=== PATIENT | male | born 1945 | race Caucasian/White ===

== ENCOUNTER 2021-12-27 10:21 | Outpatient (REF) | payer MEDICARE, OTHER, SELFPAY ==
[2021-12-29 16:11] LABS: Free Urinary Kappa Excret/Day 83.04 mg/d; Free Urinary Lambda Excr/Day 8.86 mg/d; Free Urine Kappa Light Chains 41.52 mg/L (0.00-32.90); Free Urine LAmbda Light Chains 4.43 mg/L (0.00-3.79); Hours Collected 24 hr; Total Protein 188 mg/d (<=150); Total Volume 2000 mL
== END 2021-12-27 10:22 | disposition home or self-care (01) ==
LOC: NPINS 10:21
PROVIDERS: PCP Family Medicine; Visit Provider Family Medicine
DX: D47.2 Monoclonal gammopathy (principal)
CPT/HCPCS: 83520; 84156; 86335

== ENCOUNTER 2022-05-23 08:14 | Outpatient (CLI) | payer MEDICARE, OTHER, SELFPAY ==
--- OUTSIDE RECORDS SUMMARY | 2022-05-23 09:05 | XMS_ITS | Clinical Summary ---
:1945 Author Organization [facility] [place] [address] Care Team Providers Name Role Phone Prashant Valdez MD Primary Care Provider Allergies Active Allergy Reactions Severity Noted Date Comments Cephalosporins Hives High 06/03/2007 Medications Medication Sig Dispensed Refills Start Date End Date Status XALATAN 0.005 % EYE Place 1 Drop into 0 06/03/2007 Active DROPS right eye at bedtime. albuterol HFA Inhale 2 Puffs by 1 Inhaler 2 06/02/2015 Active (PRO-AIR,VENTOLIN,PRO mouth 4 times daily VENTIL) 90 if needed. mcg/actuation inhalerIndications: Counseling for travel ACCU-CHEK MIGUEL PLUS TEST D UTD 0 11/28/2016 Active TEST STRP strip dutasteride 0.5 mg Take 0.5 mg by 11 07/09/2018 Active capsule mouth once daily. b complex vitamins Take 1 capsule by 0 07/15/2018 Active (VITAMIN B COMPLEX) mouth once daily. capsule Glucosamine-Chondroit Take 1 Tablet by 0 05/09/2021 Active in 250-200 mg tablet mouth once daily. timolol hemihydrate Place 1 Drop into 0 Active (BETIMOL) 0.25 % right eye once ophthalmic solution daily. magnesium oxide Take 1 Tablet (400 90 Tablet 3 08/09/2021 Active (Mag-Ox) 400 mg mg) by mouth once tabletIndications: daily. Heart failure with preserved ejection fraction, unspecified HF chronicity (HC), Hypomagnesemia simvastatin (ZOCOR) Take 10 mg by mouth 0 Active 10 mg tablet at bedtime. calcium Take 500 mg by 0 Activ e carbonate/vitamin D3 mouth once daily. (CALCIUM 500 + D ORAL) nitroglycerin Place 1 Tablet (0.4 30 Tablet 1 08/10/2021 Active (NITROSTAT) 0.4 mg mg) under the sublingual tongue every 5 tabletIndications: minutes if needed Coronary artery for Chest Pain. disease, unspecified vessel or lesion type, unspecified whether angina present, unspecified whether cahto or transplanted heart ferrous sulfate, 65 Take 1 Tablet (325 0 08/25/2021 Active mg elemental, tablet mg) by mouth once daily with a meal. cholecalciferol Take 1 Capsule 0 08/25/2021 Active (VITAMIN D3) 1,000 (1,000 units) by unit capsule mouth once daily. glipiZIDE (GLUCOTROL) Take 5 mg by mouth 0 Active 5 mg tablet 2 times daily before meals. WalkerIndications: Walker with front 1 Each 0 09/16/2021 Active S/P CABG x 4 wheels for home use. acetaminophen Take 2 Tablets 0 09/17/2021 Active (TYLENOL EXTRA (1,000 mg) by mouth STRGTH) 500 mg tablet every 6 hours if needed. Max acetaminophen dose: 4000mg in 24 hrs. metFORMIN (GLUCOPHAGE Take 2 Tablets 0 09/17/2021 Active XR) 500 mg (1,000 mg) by mouth Extended-Release 2 times daily with tabletIndications: meals. Type 2 diabetes mellitus with hyperglycemia, without long-term current use of insulin (HC) carvediloL (COREG) Take 1 Tablet (6.25 60 Tablet 0 10/06/2021 Active 6.25 mg mg) by mouth 2 tabletIndications: times daily with S/P CABG x 4, HTN meals. (hypertension) spironolactone Take 1 Tablet (25 90 Tablet 1 11/01/2021 Active (ALDACTONE) 25 mg mg) by mouth every tabletIndications: morning. Heart failure with preserved ejection fraction, unspecified HF chronicity (HC) Lantus Solostar U-100 Inject 24 units 3 04/18/2022 Active Insulin 100 unit/mL subcutaneous before (3 mL) bedtime. penIndications: Type 2 diabetes mellitus with hyperglycemia, without long-term current use of insulin (HC) warfarin (COUMADIN) 5 Take 1 Tablet (5 0 04/18/2022 Active mg tablet mg) by mouth once daily. warfarin (COUMADIN) Take 1 tablet (2.5 15 Tablet 0 04/18/2022 Active 2.5 mg mg) by mouth on tabletIndications: Fridays along with Permanent atrial 5 mg tablet fibrillation (HC) aspirin (ECOTRIN) 81 Continue until 0 04/20/2022 Active mg enteric coated August 2022 tabletIndications: Permanent atrial fibrillation (HC) torsemide (DEMADEX) Decrease dosage to 90 Tablet 1 04/20/2022 Active 20 mg 10 mg ( 1/2 tablet) tabletIndications: for 1 week, then Heart failure with stop. 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 08/25/2021 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 Abnormal nuclear stress test 08/10/2021 Dyslipidemia 08/10/2021 Type 2 diabetes mellitus with hyperglycemia, without l harsh-term current use 05/09/2021 of insulin Abdominal aortic aneurysm (AAA) without rupture 2020 Permanent atrial fibrillation 01/24/2019 Elevated PSA 10/13/2015 Erectile dysfunction 10/13/2015 HTN (hypertension) 06/02/2015 Gastric ulcer 06/23/2010 Overview: EGD 06/2010 ulcers Encounters Date Type Specialty Care Team Description 04/26/2022 Telephone Ramesh Mantilla Results (La bs) MD Jeffrey 04/20/2022 Hospital Encounter Ramesh Mantilla id heart disease (HC); MD Jeffrey Heart failure w ith preserved ejection fraction, unspecified HF chronicity (HC) 04/20/2022 Office Visit Ramesh Mantilla CV General Cardiology MD Jeffrey Est (F/U; No co ncerns) 04/20/2022 Telephone Ramesh Mantilla Medication Management MD Jeffrey (Eluquis) 04/20/2022 Travel from Last 3 Months Immunizations Name Administration Dates Next Due Influenza, High-dose Inactivated 04/09/2018 Influenza, IIV3 (Age >=3 years) 06/03/2007 Pneumococcal Poly,23-Valent (Pneumovax) 04/09/2018, 10/24/19 09 Pneumococcal conj 13-Valent (Prevnar 13) 10/07/2014 Tdap 06/02/2008 Typhoid (injectable) 06/02/2015 Zoster (Zostavax-ZVL, live) 12/30/2010 Family History Medical History Relation Name Comments Diabetes Father Diabetes Mother Relation Name Status Comments Father Mother Social History Tobacco Use Types Packs/Day Years Used Date Former Smoker Cigarettes 1 15 Quit: 07/02/18 76 Smokeless Tobacco: Never Used Tobacco Cessation: Counseling Given: Yes Alcohol Use Standard Drinks/Week Comments Yes 0 (1 standard drink = 0.6 oz pure alcoho l) rare Sex Assigned at Date Recorded Not on file Obstetrics History Last Filed Vital Signs Vital Sign Reading Time Taken Comments Blood Pressure 112/68 04/20/2022 10:52 AM CDT Pulse 72 04/20/2022 10:52 AM CDT Temperature 36.9 ??C (98.4 ??F) 09/17/2021 7:47 AM CDT Respiratory Rate 19 09/23/2021 1:02 PM CDT Oxygen Saturation 96% 04/20/2022 10:52 AM CDT Inhaled Oxygen Concentration - - Weight 93.9 kg (207 lb) 04/20/2022 10:52 AM CDT Height 170.2 cm (5' 7.01) 04/20/2022 10:52 AM CDT Body Mass Index 32.41 04/20/2022 10:52 AM CDT Plan of Treatment Upcoming Encounters Date Type Specialty Care Team Description 05/29/2022 Appointment 05/30/2022 Office Visit Aaron Wells MD [id number] [place] [address] (Wo rk) 08/15/2022 Cardiac Device Check Health Maintenance Due Date Last Done Comments Depression screening for age 12+ 1956 Hepatitis C screening for age 110[birth year]/22/1963 18-79 Medicare Wellness for age 65+ 2009 Zoster (shingles) series for age 0802/24/2011 12/30/2010 50+ (2 of 3) Tetanus booster 06/02/2018 06/02/2008 Influenza for age 65+ 03/02/2022 04/09/2018, 06/03/2007 BMI (ht and wt on same day) for 04/20/2023 04/20/2022, 05/2 , age 18+ 10/31/2021, Additional history exists Tdap Completed 06/02/2008 Pneumococcal series for age 65+ Completed 04/09/2018, 0 01/2015, 10/23/2008 COVID-19 vaccine series Completed 03/14/2022, 12/16/2021, 03/22/2021, Additional history exists Goals Goal Patient Goal Associated Recent Patient-Stated? 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 fraction, unspecified HF chronicity (HC) ELP AND FREE LIGHT Today 04/20/2022 12:35 Amyloid heart Resu lts for this CHAINS W REFLEX, BLOOD PM CDT disease ( HC) procedure are in Heart failure with the resul ts preserved ejection section. fraction, unspecified HF chronicity (HC) from Last 3 Months Results IMMUNOFIXATION ELP, URINE (04/20/2022 1:07 PM CDT) Component Value Ref Test Analysis Performed At [facility] gist Range Method Time Signature PROTEIN <7 <=14 04/24/2022 [facility] mg/dL 1:03 PM CDT LABORATORY-CE URINE NTRAL LABORATORY IFIX Immunofixation on urine show s no monoclonal protein detected and no free light chains detected. 04/24/2022 [facility] 1:03 PM CDT LABORATORY-CE Interpreted and electronically signed by: NTRAL MD KEREN Shoemaker Jr BORATORY Specimen Anatomical Collection Method Collection Time Receive d Time (Source) Location / / Volume Laterality Urine URINE SPECIMEN / Non-Blood / 04/20/2022 1:07 PM 04/20 1:08 Unknown Unknown CDT PM CDT Ramesh Mantilla MD URINE Performing Organization Address City/State/ZIP Code Phon e Number [facility] [address] [place] [address] LABORATORY-CENTRAL 2000 LABORATORY (ABNORMAL) ELP AND FREE LIGHT CHAINS W REFLEX, BLOOD (04/20/2022 12:35 PM CDT) Component Value Ref Test Analysis Performed At [facility] gist Range Method Time Signature PROTEIN,TOTAL 7.2 6.0 - 04/21/2022 [facility] 8.0 g/dL 4:13 PM CDT LABORATORY-CE NTRAL LABORATORY ELP,ALBUMIN 3.76 3.31 - 04/21/2022 [facility] 5.31 4:13 PM CDT LABORATORY-CE g/dL NTRAL LABORATORY ELP,ALPHA 1 0.32 0.19 - 04/21/2022 [facility] 0.42 4:13 PM CDT LABORATORY-CE g/dL NTRAL LABORATORY ELP,ALPHA 2 1.12 (H) 0.44 - 04/21/2022 [facility] 1.03 4:13 PM CDT LABORATORY-CE g/dL [facility] LABORATORY ELP,GAMMA 0.85 0.59 - 04/21/2022 [facility] 1.46 4:13 PM CDT LABORATORY-CE g/dL [facility] LABORATORY ELP,BETA 1.11 (H) 0.52 - 04/21/2022 [facility] 1.05 4:13 PM CDT LABORATORY-CE g/dL [facility] LABORATORY KAPPA FREE 4.04 (H) 0.33 - 04/21/2022 [facility] LIGHT CHAIN, 1.94 4:13 PM CDT LABORATORY-CE S mg/dL [facility] LABORATORY LAMBDA FREE 2.30 0.57 - 04/21/2022 [facility] LIGHT [place]AIN, 2.63 4:13 PM CDT LABORATORY-CE S mg/dL [facility] LABORATORY KAPPA/LAMBDA 1.76 (H) 0.26 - 04/21/2022 [facility] FLC RATIO 1.65 4:13 PM CDT LABORATORY-CE NTRAL LABORATORY ELP 1. Increased alpha-globulins , probably reactive. No monoclonal protein detected. 04/21/2022 [facility] INTERP,SERUM 4:13 PM CDT LABORATORY-CE 2. Increased Beta-globulins, possible increase of Transferrin, ??C-3 complement, and/or Beta Lipoprotein. ?? N TRAL LABORATORY Interpreted and electronically signed by: Sherri Hartmann MD Specimen Anatomical Collection Method / Collection Time Recei antonio Time (Source) Location / Volume Laterality Blood BLOOD SPECIMEN / Venipuncture / 04/20/2022 12:35 04/20 Unknown Unknown PM CDT 12:38 PM CDT Ramesh Mantilla MD CHEMISTRY Performing Organization Address City/State/ZIP Code Phon e Number [facility] [address] [place] [address] LABORATORY-CENTRAL 2000 LABORATORY from Last 3 Months Insurance Payer Benefit Plan / Subscriber ID Effective Dates Phone Addre ss Type Group MEDICARE PART MEDICARE PART B [id number] 2009-Prese ATTN: CLAIMS B - HB USE HB ONLY nt [address] [place] [address] MEDICARE PART MEDICARE PART A [id number] 2009-Prese ATTN: CLAIMS A - HB USE HB ONLY nt [address] [place] [address] MEDICARE PPS HC MEDICARE PPS [id number] 2009-Prese [address] [place] [address] MEDICA MR MEDICA PRIME [id number] 2014-Presen [address] [address] SOLUTIONS MR PB t [place] , [facility] [address] MEDICA MEDICA PRIME [id number] 2015-Presen [address] [address] [place] [address] Joni Moncada Personal/Famil Self 1945 [address] (Home) [place] [id number] Advance Directives Latest Code Status on File Code Status Date Activated Date Inactivated Comments Full Code 09/05/2021 10:28 AM 09/17/2021 5:41 PM Code Status Discussion: Reviewed Preferences Full Code 08/10/2021 8:55 AM 08/10/2021 5:19 PM Code Status Discussion: Reviewed Preferences Full Code 05/10/2021 3:37 PM 05/11/2021 3:34 PM Code Status Discussion: Reviewed Preferences Care Teams Buffer Automatic Relationship Specialty Start Date End Date Prashant Valdez MD PCP - General Family Practice 08/23/17
[2022-05-23 14:24] LABS: Cholesterol* 151 mg/dL (90-199); HDL Cholesterol* 37 mg/dL (>=40); LDL Cholesterol Calculated 81 mg/dL (<100); Triglycerides* 167 mg/dL (40-149)
== END 2022-05-23 08:15 | disposition home or self-care (01) ==
PROVIDERS: PCP Family Medicine; Visit Provider Family Medicine
DX: E78.5 Hyperlipidemia, unspecified (principal); E13.9 Other specified diabetes mellitus without complications; I10 Essential (primary) hypertension; I48.91 Unspecified atrial fibrillation; Z13.29 Encounter for screening for other suspected endocrine disorder
CPT/HCPCS: 80061; 84439; 84443

== ENCOUNTER 2022-09-22 09:07 | Outpatient (REF) | payer MEDICARE, OTHER, SELFPAY ==
[2022-09-22 10:19] LABS: Basophils Absolute Auto 0.03 K/uL (0.00-0.30); Basophils Percent Auto 0.3 % (0.0-3.0); Eosinophils Absolute Auto 0.38 K/uL (0.00-0.50); Eosinophils Percent Auto 3.8 % (0.0-7.0); Hematocrit 37.8 % (37.0-53.0); Hemoglobin* 11.7 gm/dL (13.5-17.5); Immature Granulocytes Abs Auto 0.01 K/uL (0.00-0.30); Immature Granulocytes Pct Auto 0.1 %; Lymphocytes Percent Auto 13.7 % (20-44); Mean Corpuscular HGB Conc 31 gm/dL (32-36); Mean Corpuscular Hemoglobin 28 pg (26-34); Mean Corpuscular Volume 90 fL (80-100); Monocytes Percent Auto 9.8 % (0.0-11.0); Neutrophils Percent Auto 72.3 % (42.0-72.0); Platelet Count* 348 K/uL (140-440); RDW Coefficient of Variation % 14.9 % (11.5-15.5); Red Blood Count 4.19 m/uL (4.30-5.90); White Blood Count* 9.98 K/uL (4.50-11.00)
[2022-09-22 10:22] LABS: Slide Review Reflex No
[2022-09-22 10:29] LABS: Chloride* 99 mmol/L (96-114)
[2022-09-22 10:30] LABS: Albumin* 4.3 g/dL (3.3-5.0); Potassium* 4.2 mmol/L (3.6-5.1); Sodium* 139 mmol/L (135-149)
[2022-09-22 10:32] LABS: Creatinine* 1.2 mg/dL (0.5-1.5); Estimated Glomerular Filt Rate 62 ml/min
[2022-09-22 10:33] LABS: Alanine Aminotransferase* 27 U/L (4-50); Alkaline Phosphatase* 64 U/L (40-150); Aspartate Amino Transferase* 22 U/L (12-35); Bilirubin Total* 0.5 mg/dL (0.1-1.5); Blood Urea Nitrogen* 24 mg/dL (7-30); Carbon Dioxide* 33 mmol/L (20-32); Glucose* 67 mg/dL (60-115); Total Protein* 8.1 g/dL (6.0-8.3)
[2022-09-22 10:34] LABS: Calcium* 9.5 mg/dL (8.4-10.6)
[2022-09-24 10:35] LABS: Free Urinary Kappa Excret/Day 61.77 mg/d; Free Urinary Lambda Excr/Day 5.41 mg/d; Free Urine Kappa Light Chains 36.88 mg/L (0.00-32.90); Free Urine LAmbda Light Chains 3.23 mg/L (0.00-3.79); Hours Collected 24 hr; Total Protein 129 mg/d (<=150); Total Volume 1675 mL
[2022-09-25 02:00] LABS: Albumin 3.94 g/dL (3.75-5.01); Alpha 1 Globulin 0.37 g/dL (0.19-0.46); Alpha 2 Globulin 1.13 g/dL (0.48-1.05); Immunofixation IFE Done; Immunoglobulin A 516 mg/dL (68-408); Immunoglobulin G 930 mg/dL (768-1632); Immunoglobulin M 25 mg/dL (35-263); Kappa Qnt Free Light Chains 49.06 mg/L (3.30-19.40); Kappa/Lambda Light Chain Ratio 2.02 (0.26-1.65); Total Protein, Serum 7.6 g/dL (6.3-8.2)
== END 2022-09-22 09:08 | disposition home or self-care (01) ==
LOC: NPINS 09:07
PROVIDERS: PCP Family Medicine
DX: D47.2 Monoclonal gammopathy (principal)
CPT/HCPCS: 80053; 82784; 83520; 84155; 84156; 84165; 85025; 86334; 86335

== ENCOUNTER 2022-10-21 11:41 | Outpatient (CLI) | payer MEDICARE, OTHER, SELFPAY ==
[2022-10-21 13:38] LABS: Uric Acid* 7.7 mg/dL (2.2-8.4)
[2022-10-21 13:53] LABS: Erythrocyte SedimentationRate* 86 mm/hr (2-15)
== END 2022-10-21 11:42 | disposition home or self-care (01) ==
PROVIDERS: PCP Family Medicine; Visit Provider Family Medicine
DX: M25.531 Pain in right wrist (principal); M25.431 Effusion, right wrist
CPT/HCPCS: 84550; 85651

== ENCOUNTER 2022-12-29 08:54 | Outpatient (CLI) | payer MEDICARE, OTHER, SELFPAY | END 2022-12-29 08:55 | disposition home or self-care (01) | PROVIDERS: PCP Family Medicine; Visit Provider Family Medicine | DX: E03.9 Hypothyroidism, unspecified (principal); I10 Essential (primary) hypertension; E78.5 Hyperlipidemia, unspecified | CPT/HCPCS: 84443 ==

== ENCOUNTER 2023-01-29 13:42 | Outpatient (REF) | payer MEDICARE, OTHER, SELFPAY ==
[2023-01-29 14:42] LABS: Basophils Percent Auto 0.2 % (0.0-3.0); Eosinophils Percent Auto 0.4 % (0.0-7.0); Hematocrit 34.9 % (37.0-53.0); Lymphocytes Percent Auto 6.2 % (20-44); Mean Corpuscular HGB Conc 32 gm/dL (32-36); Mean Corpuscular Hemoglobin 29 pg (26-34); Mean Corpuscular Volume 91 fL (80-100); Monocytes Percent Auto 4.7 % (0.0-11.0); Neutrophils Percent Auto 86.5 % (42.0-72.0); Platelet Count* 320 K/uL (140-440); RDW Coefficient of Variation % 17.2 % (11.5-15.5); Red Blood Count 3.83 m/uL (4.30-5.90); White Blood Count* 13.14 K/uL (4.50-11.00)
[2023-01-29 14:46] LABS: Slide Review Reflex No
[2023-01-29 15:04] LABS: Albumin* 3.9 g/dL (3.3-5.0); Chloride* 97 mmol/L (96-114); Sodium* 135 mmol/L (135-149)
[2023-01-29 15:05] LABS: Potassium* 4.5 mmol/L (3.6-5.1)
[2023-01-29 15:06] LABS: Iron* 56 ug/dL (49-181)
[2023-01-29 15:07] LABS: Alanine Aminotransferase* 30 U/L (4-50); Alkaline Phosphatase* 48 U/L (40-150); Aspartate Amino Transferase* 20 U/L (12-35); Bilirubin Total* 0.3 mg/dL (0.1-1.5); Blood Urea Nitrogen* 38 mg/dL (7-30); Carbon Dioxide* 30 mmol/L (20-32); Creatinine* 1.2 mg/dL (0.5-1.5); Estimated Glomerular Filt Rate 62 ml/min; Total Protein* 6.7 g/dL (6.0-8.3)
[2023-01-29 15:08] LABS: Calcium* 9.1 mg/dL (8.4-10.6); Glucose* 230 mg/dL (60-115)
[2023-01-29 15:17] LABS: Percent Iron Saturation 18 % (20-50); Total Iron Binding Capacity 317 ug/dL (261-462)
[2023-01-31 22:26] LABS: Immunoglobulin A 338 mg/dL (68-408); Immunoglobulin G 509 mg/dL (768-1632); Immunoglobulin M 23 mg/dL (35-263); Kappa Qnt Free Light Chains 30.25 mg/L (3.30-19.40); Kappa-Lambda Qt FLC W/ Ratio 1.88 (0.26-1.65); Lambda Qnt Free Light Chains 16.12 mg/L (5.71-26.30)
[2023-02-01 20:51] LABS: Albumin 3.51 g/dL (3.75-5.01); Alpha 1 Globulin 0.33 g/dL (0.19-0.46); Alpha 2 Globulin 1.17 g/dL (0.48-1.05); Total Protein, Serum 6.5 g/dL (6.3-8.2)
== END 2023-01-29 13:43 | disposition home or self-care (01) ==
LOC: NPINS 13:42
PROVIDERS: Internal Medicine Hematology & Oncology; PCP Family Medicine
DX: D47.2 Monoclonal gammopathy (principal)
CPT/HCPCS: 80053; 82728; 82784; 83520; 83540; 83550; 84165; 85025

== ENCOUNTER 2023-03-14 11:56 | Outpatient (CLI) | payer MEDICARE, OTHER, SELFPAY | END 2023-03-14 11:57 | disposition home or self-care (01) | LOC: LONREF 11:57 | PROVIDERS: PCP Family Medicine; Visit Provider Family Medicine | DX: E78.5 Hyperlipidemia, unspecified (principal); E13.9 Other specified diabetes mellitus without complications; I10 Essential (primary) hypertension | CPT/HCPCS: 80061 ==

== ENCOUNTER 2023-05-23 15:51 | Outpatient (CLI) | payer MEDICARE, OTHER, SELFPAY | END 2023-05-23 15:52 | disposition home or self-care (01) | LOC: NFLDUCREF 15:54 | PROVIDERS: PCP Family Medicine; Visit Provider Nurse Practitioner Family | DX: M79.671 Pain in right foot (principal) | CPT/HCPCS: 84550 ==

== ENCOUNTER 2023-06-28 12:42 | Outpatient (CLI) | payer MEDICARE, OTHER, SELFPAY | END 2023-06-28 12:43 | disposition home or self-care (01) | PROVIDERS: PCP Family Medicine; Visit Provider Physician Assistant | DX: M79.89 Other specified soft tissue disorders (principal); M06.9 Rheumatoid arthritis, unspecified; M25.512 Pain in left shoulder | CPT/HCPCS: 84484; 85651; 86140 ==

== ENCOUNTER 2023-06-29 07:59 | Outpatient (CLI) | payer MEDICARE, OTHER, SELFPAY ==
--- NOTE | 2023-06-29 08:15 | CRLHL7_ITS ---
For Patients: As a result of the Century Cures Act, medical imaging exams and procedure reports are released immediately into your electronic medical record. You may view this report before your referring provider. If you have questions, please contact your health care provider. Indication: Left shoulder pain Procedure : Informed consent was obtained. The site was marked. Time-out was performed. The skin of the left shoulder was cleansed with ChloraPrep. A sterile drape was placed. 8 cc of 1 percent lidocaine was administered for superficial anesthesia. Subsequently a 22 gauge spinal needle was introduced into the left shoulder joint under intermittent fluoroscopic guidance. Injection of 4 cc nonionic Omnipaque 240 contrast confirmed intra-articular location followed by injection of air. The needle was removed and hemostasis achieved with direct pressure. A dressing was placed. The patient tolerated the procedure well without immediate complication and was immediately sent to CT for imaging. Total fluoroscopy time 49 seconds. Impression: Successful fluoroscopically guided left shoulder arthrogram for CT. Dictated by Medardo Mtz MD @ 06/29/2023 10:13:55 AM (Electronically Signed)
--- NOTE | 2023-06-29 09:00 | CRLHL7_ITS ---
For Patients: As a result of the Century Cures Act, medical imaging exams and procedure reports are released immediately into your electronic medical record. You may view this report before your referring provider. If you have questions, please contact your health care provider. Indication: Left shoulder pain Technique: Routine CT arthrogram performed Please note that all CT scans at this facility use dose modulation, iterative reconstruction, and/or weight-based dosing when appropriate to reduce radiation dose to as low as reasonably achievable. Comparison: X-rays 06/28/2023 Findings: Narrowing and spurring are present at the acromioclavicular joint. Atherosclerotic changes are present. Pacer device noted within the left chest wall. No adenopathy. No fracture. Posterior position of the humeral head in relation to the glenoid. Glenohumeral spurring. Positive contrast adjacent to the posterior-inferior glenoid labrum. Biceps labral anchor appears intact. Hypertrophic changes associated with the anterior greater tuberosity. No Hill-Sachs deformity. Type 2 acromion noted. Mild subacromial spur without downsloping at the lateral aspect. Negative contrast and a small amount of positive contrast extend beyond the margins of the rotator cuff particularly anteriorly. Impression: CT arthrogram findings compatible with small rotator cuff tear involving the subscapularis/anterior supraspinatus tendons. Glenohumeral and acromioclavicular compartment degenerative joint disease. Degenerative tear of the posterior glenoid labrum. Posterior joint capsular laxity. Please note that all CT scans at this facility use dose modulation, iterative reconstruction, and/or weight-based dosing when appropriate to reduce radiation dose to as low as reasonably achievable. Dictated by Medardo Mtz MD @ 06/29/2023 10:30:09 AM (Electronically Signed)
== END 2023-06-29 08:00 | disposition home or self-care (01) ==
PROVIDERS: PCP Family Medicine; Visit Provider Physician Assistant Surgical
DX: M25.512 Pain in left shoulder (principal); R29.898 Other symptoms and signs involving the musculoskeletal system; M75.102 Unspecified rotator cuff tear or rupture of left shoulder, not specified as traumatic; M19.012 Primary osteoarthritis, left shoulder; S43.492A Other sprain of left shoulder joint, initial encounter
CPT/HCPCS: 23350; 73201; 77002; Q9967

== ENCOUNTER 2023-08-02 09:57 | Outpatient (CLI) | payer MEDICARE, OTHER, SELFPAY ==
--- OUTSIDE RECORDS SUMMARY | 2023-08-02 10:04 | XMS_ITS | Clinical Summary ---
Author Name Unknown Organization [facility] Address [address] [place] [address] Care Team Providers Care Manager Latin Name Role Phone Needs Pcp, Assignment Primary Care Provider [phone] Source Comments You are receiving this document as you are listed as the primary care provider,follow-up provider, or the patient has been referred to you for consultation.This is in compliance with the Medicare and[facility] EHR Incentive Program,which states Providers who transition their patient to another setting of careor provider of care or refers their patient to another provider of care shouldprovide summary care record for each transition of care or referral. Formerly [facility] Allergies Active Allergy Reactions Criticality Noted Date Comments Cephalosporins Hives High 02/28/2023 Medications Medication Sig Dispensed Refills Start Date End Date Status metFORMIN XR (GLUCOPHAGE XR) 500 MG 24 hour release tablet Take 2 Tablets (1,000 mg) by mouth two times a day. 0 09/17/2022 Active glipiZIDE (GLUCOTROL) 5 MG tablet Take 1 Tablet (5 mg) by mouth two times a day before meals. 0 Active simvastatin (ZOCOR) 20 MG tablet Take 1 Tablet (20 mg) by mouth daily at bedtime. 0 12/04/2022 Active torsemide (DEMADEX) 20 MG tablet Take 1 Tablet (20 mg) by mouth daily. 0 Active spironolactone (ALDACTONE) 50 MG tablet Take 1 Tablet (50 mg) by mouth two times a day. 0 02/02/2023 Active MAGNESIUM OXIDE 400 (240 Mg) MG tablet Take 1 Tablet (400 mg) by mouth daily. 0 12/14/2022 Active B-D ULTRAFINE III SHORT PEN 31G X 8 MM needle Inject subcutaneously daily. 0 01/19/2023 Active aspirin 81 MG chewable tablet Chew and swallow 1 Tablet (81 mg) by mouth daily. 0 Active carvedilol (COREG) 6.25 MG tablet Carvedilol Oral BID active 0 Active dutasteride (AVODART) 0.5 MG capsule Dutasteride Oral active 0 Active acetaminophen (TYLENOL) 500 MG tablet every 6 hours as needed. 0 Active B Complex Vitamins (VITAMIN B COMPLEX OR) Take 2,000 Units by mouth daily. 0 Active timolol (BETIMOL) 0.5 % eye drop solution Timolol Ophthalmic Drops 0.5 % active 0 Active GLUCOSAMINE CHONDROITIN COMPLX OR Glucosamine-Chondroi tin Oral 250 mg-200 mg active 0 Active Ferrous Sulfate Dried (FERROUS SULFATE CR OR) Ferrous Sulfate Oral active 0 Active Cholecalciferol 50 MCG (2000 UT) TBDP Cholecalciferol Oral active 0 Active Albuterol Sulfate, sensor, 108 (90 Base) MCG/ACT AEPB Albuterol HFA Inhaler 90 mcg/actuation active 0 Active folic acid 1 MG tablet Take 1 Tablet (1 mg) by mouth daily. 90 Tablet 3 02/28/2023 4 Active LANTUS SOLOSTAR 100 UNIT/ML pen Taking 32 units nightly 0 04/10/2023 Active methotrexate 2.5 MG tablet Take 6 Tablets (15 mg) by mouth once every week. 150 Tablet 0 07/24/2023 4 Active methotrexate 2.5 MG tablet Take 6 Tablets (15 mg) by mouth once every week. 78 Tablet 0 04/10/2023 4 Active Problems Problem Noted Date Diagnosed Date Diabetes mellitus 04/10/2023 HTN (hypertension) 04/10/2023 Hyperlipidemia 04/10/2023 Atrial fibrillation 04/10/2023 Gastric ulcer 04/10/2023 Nephrolithiasis 04/10/2023 BPH (benign prostatic hyperplasia) 04/10/2023 Left ventricular hypertrophy 04/10/2023 Hearing loss 04/10/2023 Diverticulosis 04/10/2023 COPD (chronic obstructive pulmonary disease) 04/2023 Macular pigment epithelial tear 04/10/2023 Rheumatoid arthritis 02/28/2023 Monoclonal gammopathy of unknown significance (M ISIS) 02/28/2023 Iron deficiency anemia 02/28/2023 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 Overview: WHEELER to LAD, Saphenous vein graft sequential to OM and D1, Saphenous vein graft to PDA CAD in [place] artery 08/25/2021 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 Dyslipidemia 08/10/2021 Abnormal nuclear stress test 08/10/2021 Abdominal aortic aneurysm (AAA) without rupture 05/09/2021 Elevated PSA 10/13/2015 Erectile dysfunction 10/13/2015 Encounters Date Type Department Care Team Description 07/26/2023 Telephone [facility] [address] [place] [address] Idris Torrez, DO RESULTS, TEST 07/24/2023 3:40 PM CASSEROLE PREPARER Lab Visit [facility] [address] [place] [address] 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 use; Leukocytosis, unspecified type (HRC) 07/24/2023 2:45 PM CASSEROLE PREPARER Office Visit [facility] [address] [place] [address] DesiletIdris, DO 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); 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 use; Leukocytosis, unspecified type (HRC) from Last 3 Months Immunizations Name Administration Dates Next Due Flu Vac (3+ yrs) 03/20/2014, 2,02/23/2011, 010,06/02/2008,06/03/2007,05/16/2005, Flu Vac Preserv Free (3+yrs) 04/23/2013,03/24/20 09 [id number] 06/30/2009 HepA Adult (19+ yrs) 12/07/1999 HepB Adult (Engerix-B, 20+ y rs, 3 dose series) 01/05/2000,12/07/1999 IPV (Polio) 12/07/1999 Influenza IIV3 (Trivalent) F luzone Highdose, 65+ Yrs (09617) 04/16/2019,04/09/2018,03/01/2017, 016,03/18/2015 Influenza IIV4 (Quadrivalent ) 0.5mL (89778) 04/19/2021 Influenza IIV4 (Quadrivalent ) Fluad, 65+ Yrs 03/14/2022 Influenza IIV4 (Quadrivalent ) Fluzone, 65+ Yrs 04/03/2023,04/13/2021,03/18/2020 Moderna 12+ 04/03/2023 PCV13 (Prevnar) 10/07/2014 PPSV23 (Pneumovax) 04/09/2018,10/23/2008 Pfizer Bivalent 12+ 03/14/2022 Pfizer Monovalent 12+ Purple Top 022,03/22/2021,09/07/2020, 021 RSV Arexvy 04/30/2023 Tdap 01/04/2018,06/02/2008,12/18/2005 Typhoid (Typhim Vi, IM) 06/02/2015 Zoster (Zostavax) 12/21/2011,12/30/2010 Zoster RZV (Shingrix) 02/27/2019,12/16/2018 Social History Tobacco Use Types Packs/Day Years Used Date Smoking Tobacco: Former Cigarettes 12 Smokeless Tobacco: Never Tobacco Cessation:Counseling Given: Not Answered Alcohol Use Standard Drinks/Week Comments Yes 1 (1 standard drink = 0.6 oz pure alcohol) Drinks very infrequently, likely less than once per month. Sex and Gender Information Value Date Recorded Sex Assigned at Not on file Gender Identity Not on file Sexual Orientation Not on file Last Filed Vital Signs Vital Sign Reading Time Taken Comments Blood Pressure 142/68 07/24/2023 2:32 PM CASSEROLE PREPARER Pulse 85 07/24/2023 2:32 PM CASSEROLE PREPARER Temperature - - Respiratory Rate - - Oxygen Saturation - - Inhaled Oxygen Concentration - - Weight 92.3 kg (203 lb 8 oz) 07/24/2023 2:32 PM CASSEROLE PREPARER Height 170.2 cm (5' 7) 04/10/2023 10:06 AM CDT Body Mass Index 31.87 04/10/2023 10:06 AM CDT Plan of Treatment Upcoming Encounters Date Type Department Care Team Description 11/06/2023 12:00 PM CDT Appointment [facility] [address] [place], [place] [id number] Desilet, Idris W, DO [address] [place] [address] 01/17/2024 10:45 AM CDT Appointment [facility] [address] [place], [place] [phone] DeslouisetIdris DO [address] [place] [address] Health Maintenance Due Date Last Done Comments Diabetes: Eye Exam 1944 Diabetes: Foot Exam 1944 Diabetes: HGBA1C 1944 Diabetes: Lipid Panel 1944 Diabetes: Urine Microalbumin 1945 Medicare Annual Wellness Visit 1945 HepA (2 of 2 - Risk 2-dose series) 06/07/2000 12/07/1999 HepB (3) 06/07/2000 01/05/2000, 12/07/1999 Diabetes: Creatinine 07/24/2024 07/24/2023, 04/10/2023, 03/06/2023, Additional history exists DTaP/Tdap/Td (4 - Tdap) 01/05/2028 01/05/20 18, 06/02/2008, 12/18/2005 IPV (Polio) Aged Out 12/07/1999 No longer eligi ble based on patient's age to complete this topic Pneumococcal 65+ Yrs Completed 04/09/2018, 10/07/2014, 10/23/2008 Zoster/Shingles Completed 02/27/2019, 11/30, 12/21/2011, Additional history exists Hep C Screening (Preventive Services) Completed 02/28/2023 COVID-19 Vaccine Completed 04/03/2023, , 12/16/2021, Additional history exists Influenza Completed 04/03/2023, 03/02, 04/19/2021, Additional history exists Hib Aged Out No longer eligi ble based on patient's age to complete this topic MCV4 Aged Out No longer eligi ble based on patient's age to complete this topic Procedures Procedure Name Priority Date/Time Associated Diagnosis Comments COMPLETE BLOOD COUNT-W/DIFF Routine 07/24/2023 3:34 PM CASSEROLE PREPARER 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 use VITAMIN D 25-HYDROXY, TOTAL Routine 07/24/2023 3:34 PM CASSEROLE PREPARER 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 use CALCIUM Routine 07/24/2023 3:34 PM CASSEROLE PREPARER Leukocytosis, unspecified type (HRC) FLOW CYTOMETRY Routine 07/24/2023 3:34 PM CASSEROLE PREPARER Leukocytosis, unspecified type (HRC) FREE LIGHT CHAINS, SERUM Routine 07/24/2023 3:34 PM CASSEROLE PREPARER Leukocytosis, unspecified type (HRC) PROTEIN ELP (SERUM) Routine 07/24/2023 3 :34 PM CASSEROLE PREPARER Leukocytosis, unspecified type (HRC) IMMUNOFIXATION, SERUM (IMMUNO ELP) Routine 07/24/2023 3:34 PM CASSEROLE PREPARER Leukocytosis, unspecified type (HRC) CBC AND DIFFERENTIAL PANEL Routine 07/24/2023 3:34 PM CASSEROLE PREPARER 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 use CREATININE / GFR Routine 07/24/2023 3:34 PM CASSEROLE PREPARER 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 use ALT (SGPT) Routine 07/24/2023 3:34 PM CASSEROLE PREPARER 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 use ALBUMIN Routine 07/24/2023 3:34 PM CASSEROLE PREPARER 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 use CBC AND SLIDES FOR FLOW SPEC Routine 07/24/2023 3:25 PM CASSEROLE PREPARER Leukocytosis, unspecified type (HRC) from Last 3 Months Results * Flow Cytometry (07/24/2023 3:34 PM CASSEROLE PREPARER) Case Report Flow Cytometry ?Case: [id number] ? Authorizing Provider: ??Idris Torrez, DO ?Collected: ? 07/24/2023 1534 ? Ordering Location: ? [facility] ?Received: ?07/24/2023 1534 ? Pathologist: ? Gisele Thakkar MD ? Specimen: ?Blood, Venous ? 4 2:13 PM CASSEROLE PREPARER [facility] Flow Interpretation Peripheral blood, flow cytometric immunophenotyping: Polytypic B cells T cells with a normal CD4:CD8 ratio and no immunophenotypic aberrancy See comment Comment: There is no immunophenotypic evidence of a B or T cell lymphoproliferative disorder. Results: Percentages reported below are based on the total number of CD45 positive viable leukocytes. 0.4% polytypic B cells without aberrant coexpression of CD5 or CD10. 7.5% T cells with a CD4:CD8 ratio of 1.5:1 and without aberrant loss of CD3 or CD5. 4 2:13 PM CASSEROLE PREPARER [facility] Flow Processing Information Received 3 ml of blood Cellularity: 7,766 cells per microliter Viability: 91.66 % Antibodies Performed: T cells: CD3, CD4, CD5, CD8 B cells: CD10, CD19, CD20, kappa, lambda Other: CD45 4 2:13 PM [facility] Clinical Information leukocytosis 4 2:13 PM [facility] ASR Disclaimer This test was developed and the performance characteristics were determined by [facility]. It has not been cleared or approved by the U.S. Food and Drug Administration. The FDA has determined that such clearance or approval is not necessary. By his/her signature, the pathologist listed as making the final diagnosis certifies that he/she has personally reviewed this case and confirmed or corrected the diagnosis. Technical Component performed at: [facility], [address] [place] [address] Professional Component performed at: [facility], [address] [place] [id number] 4 2:13 PM CASSEROLE PREPARER [facility] Embedded Images 4 2:13 PM [facility] Blood VENOUS BLOOD SPECIMEN / Unknown Venipuncture / Unknown 07/24/2023 3:34 PM CASSEROLE PREPARER 07/24/2023 3:34 PM CASSEROLE PREPARER Idris W Desilet DO LAB PATHOLOGY Performing Organization Address City/State/[facility] Co de Phone Number [address] [address], [id number] [place] [address] * (ABNORMAL) Free Light Chains, Serum (07/24/2023 3:34 PM CASSEROLE PREPARER) Crouch Free Light Chains 5.12(H) 0.33 - 1.94 mg/dL 07/25/2023 10:16 AM [facility] Lambda Free Light Chains 2.30 0.57 - 2.63 mg/dL 07/25/2023 10:16 AM [facility] Crouch/Lambda Ratio 2.23(H) 0.26 - 1.65 07/25/2023 10:16 AM [facility] Blood Venipuncture / Unknown 07/24/2023 3:34 PM CASSEROLE PREPARER 07/24/2023 3:34 PM CASSEROLE PREPARER Narrative [facility] - 07/25/2023 10:16 AM CASSEROLE PREPARER In the setting of renal disease, reference intervals for the FLC ratio are 0.46- 2.62, 0.48-3.38, and 0.54-3.30 for eGFR 45-59, 30-44, and < 30 mL/min/1.73 m2, respectively. Idris Brink Desilet DO LAB_1 [facility] [address] [phone] * Vitamin D 25-Hydroxy, Total (07/24/2023 3:34 PM CASSEROLE PREPARER) Vitamin D, 25-OH, Total 47 30 - 80 ng/mL 07/24/2023 9:16 PM CASSEROLE PREPARER [facility] Blood Venipuncture / Unknown 07/24/2023 3:34 PM CASSEROLE PREPARER 07/24/2023 3:34 PM CASSEROLE PREPARER Idris YouOSilet DO LAB_1 Performing Organization Address [facility]/ZIP Co de Phone Number [facility] [address] * (ABNORMAL) Creatinine / GFR (07/24/2023 3:34 PM CASSEROLE PREPARER) Creatinine 1.26(H) 0.73 - 1.18 mg/dL 07/24/2023 4:57 PM CASSEROLE PREPARER [facility] GFR, Estimated 58(L) >60 mL/min/1.7 3m2 07/24/2023 4:57 PM CASSEROLE PREPARER [facility] Blood Venipuncture / Unknown 07/24/2023 3:34 PM CASSEROLE PREPARER 07/24/2023 3:34 PM CASSEROLE PREPARER Narrative [facility] - 07/24/2023 4:57 PM CASSEROLE PREPARER The National Kidney Disease Education Program suggests measuring Cystatin C in patients with eGFRcrea of 45 to 59 ml/min/1.73^2 who do not have other markers of kidney damage (i.e. elevated urine Albumin/Creatinine Ratio or a prior Cystatin C confirming the presence of chronic kidney disease). Idris Uplogixilet DO LAB_1 [facility] [address] [place] [address], [facility] [phone] * (ABNORMAL) Complete Blood Count-W/Diff (07/24/2023 3:34 PM [facility]) WBC 8.2 3.5 - 10.5 x10(9)/L 07/24/2023 3:37 PM [facility] RBC 3.55(L) 4.32 - 5.72 x10(12)/L 07/24/2023 3:37 PM [facility] Hemoglobin 10.0(L) 13.5 - 17.5 g/dL 07/24/2023 3:37 PM [facility] HCT 31.2(L) 38.8 - 50.0 % 07/24/2023 3:37 PM [facility] MCV 87.9 80.0 - 100.0 fL 07/24/2023 3:37 PM [facility] MCH 28.2 27.6 - 33.3 pg 07/24/2023 3:37 PM [facility] MCHC 32.1 31.5 - 35.2 g/dL 07/24/2023 3:37 PM [facility] RDW 16.7(H) 11.9 - 15.5 % 07/24/2023 3:37 PM [facility] Platelets 351 150 - 450 x10(9)/L 07/24/2023 3:37 PM [facility] Automated NRBC 0 <=0 /100 WBC 07/24/2023 3:37 PM [facility] Neutrophil Absolute 6.4 1.7 - 7.0 10(9)/L 07/24/2023 3:37 PM [facility] Lymphocyte Absolute 1.0 1.0 - 4.8 10(9)/L 07/24/2023 3:37 PM [facility] Monocyte Absolute 0.6 0.2 - 0.9 10(9)/L 07/24/2023 3:37 PM [facility] Eosinophil Absolute 0.3 0.0 - 0.5 10(9)/L 07/24/2023 3:37 PM [facility] Basophil Absolute 0.0 0.0 - 0.3 10(9)/L 07/24/2023 3:37 PM [facility] Immature Granulocyte % 0.2 0.0 - 0.5 % 07/24/2023 3:37 PM [facility] Blood Venipuncture / Unknown 07/24/2023 3:34 PM CASSEROLE PREPARER 07/24/2023 3:34 PM CASSEROLE PREPARER [employer] Desilet DO LAB_1 Performing Organization Address [facility]/ZIP Co de Phone Number [facility] [address] [place] [address]UST [phone] * (ABNORMAL) Protein ELP (Serum) (07/24/2023 3:34 PM CASSEROLE PREPARER) Total Protein 7.1 6.4 - 8.3 g/dL 07/26/2023 1:07 PM [facility] [employer] Albumin 3.4 3.4 - 4.8 g/dL 07/26/2023 1:07 PM [facility] Alpha 1 0.4 0.2 - 0.5 g/dL 07/26/2023 1:07 PM [facility] Alpha 2 1.2(H) 0.5 - 1.1 g/dL 07/26/2023 1:07 PM [facility] Beta 1.1 0.6 - 1.1 g/dL 07/26/2023 1:07 PM [facility] Gamma 0.9 0.7 - 1.6 g/dL 07/26/2023 1:07 PM [facility] Monoclonal Jacky 0.0 <=0.0 g/dL 07/26/2023 1:07 PM [facility] Interpretation No monoclonal protein is detected in the serum. 07/26/2023 1:07 PM [facility] Signed Out By [facility] 07/26/2023 1:07 PM [facility] Blood Venipuncture / Unknown 07/24/2023 3:34 PM CASSEROLE PREPARER 07/24/2023 3:34 PM CASSEROLE PREPARER [employer] Desilet DO LAB_1 Performing Organization Address City/[facility]/ZIP Co de Phone Number [facility] [address] [place] [address], [facility] [phone] * Immunofixation, Serum (Immuno ELP) (07/24/2023 3:34 PM CASSEROLE PREPARER) Pathologist [facility] Immunofixati on, Serum No monoclonal protein is detected. 07/26/2023 1:07 PM CASSEROLE PREPARER [facility] Signed Out By [facility] 07/26/2023 1:07 PM CASSEROLE PREPARER [facility] Blood Venipuncture / Unknown 07/24/2023 3:34 PM CASSEROLE PREPARER 07/24/2023 3:34 PM CASSEROLE PREPARER [employer] Desilet DO LAB_1 Performing Organization Address [facility] Co de Phone Number [facility] [address] [place] [address], [facility] [phone] * ALT (SGPT) (07/24/2023 3:34 PM CASSEROLE PREPARER) Pathologist [facility] ALT (SGPT) 14 <=55 U/L 07/24/2023 4:57 PM CASSEROLE PREPARER [facility] Blood Venipuncture / Unknown 07/24/2023 3:34 PM CASSEROLE PREPARER 07/24/2023 3:34 PM CASSEROLE PREPARER Opalmoe W Desilet DO LAB_1 [facility] [address] [place] [address], [facility] [phone] * Calcium (07/24/2023 3:34 PM CASSEROLE PREPARER) Pathologist [facility] Calcium 10.1 8.4 - 10.4 mg/dL 07/24/2023 4:57 PM CASSEROLE PREPARER [facility] Blood Venipuncture / Unknown 07/24/2023 3:34 PM CASSEROLE PREPARER 07/24/2023 3:34 PM CASSEROLE PREPARER Lumoe W Desilet DO LAB_1 Performing Organization Address [facility]/ZIP Co de Phone Number [facility] [address] [place] [address], [facility] [phone] * (ABNORMAL) Albumin (07/24/2023 3:34 PM CASSEROLE PREPARER) Albumin 3.4(L) 3.5 - 5.0 g/dL 07/24/2023 4:57 PM CASSEROLE PREPARER [facility] Blood Venipuncture / Unknown 07/24/2023 3:34 PM CASSEROLE PREPARER 07/24/2023 3:34 PM CASSEROLE PREPARER Idris Brink Desilet DO LAB_1 Performing Organization Address [facility] Co de Phone Number [facility] [address] [place] [address], [facility] [phone] * CBC with Diff for Flow (07/24/2023 3:25 PM CASSEROLE PREPARER) Blood VENOUS BLOOD SPECIMEN / Unknown 07/24/2023 3:25 PM CASSEROLE PREPARER 07/24/2023 3:25 PM CASSEROLE PREPARER Idris Brink Desilet DO LAB_1 Performing Organization Address [facility]/ZIP Co de Phone Number [facility] [address] [place] [address], [facility] from Last 3 Months Care Teams Manager Latin Relationship Specialty Start Date End Date Needs Pcp, [place] [address] PCP - General 04/10/23
--- OUTSIDE RECORDS SUMMARY | 2023-08-02 10:04 | XMS_ITS | Encounter Summary ---
Author Name Unknown Organization [facility] Address [address] [address] Care Team Providers Care Key Bed Installer Name Role Phone Needs Pcp, Assignment Primary Care Provider Reason for Visit * Reason Comments RESULTS, TEST Encounter Details Date Type Department Care Team Description 07/26/2023 Telephone [facility] [address] [place] [address] Idris Torrez DO [address] [place] [address] RESULTS, TEST Social History Tobacco Use Types Packs/Day Years Used Date Smoking Tobacco: Former Cigarettes 12 Smokeless Tobacco: Never Alcohol Use Standard Drinks/Week Comments Yes 1 (1 standard drink = 0.6 oz pure alcohol) Drinks very infrequently, likely less than once per month. Sex and Gender Information Value Date Recorded Sex Assigned at Not on file Gender Identity Not on file Sexual Orientation Not on file documented as of this encounter Nursing Notes * Idris Torrez DO - 07/26/2023 1:58 PM CST I called patient to discuss stable methotrexate monitoring labs. Other workup for leukocytosis unremarkable. Leukocytosis normalized. Scheduled 6 month follow up in December for rheumatoid arthritis follow up. I reminded need to get labsevery 3 months methotrexate monitoring (next due in October 2023). Idris Torrez DO 07/26/2023 1:58 PM INATION COORDINATOR documented in this encounter Plan of Treatment Upcoming Encounters Date Type Department Care Team Description 11/06/2023 12:00 PM CDT Appointment [facility] [address] [place] [address] DesiletIdris W, DO [address] [place] [address] 01/17/2024 10:45 AM CDT Appointment [facility] [address] [place] [address] DesIdris jasso, DO [address] [place] [address] documented as of this encounter Visit Diagnoses Not on filedocumented in this encounter Care Teams Key Bed Installer Relationship Specialty Start Date End Date Needs Pcp, [place] [address] PCP - General 04/10/23 documented as of this encounter
--- OUTSIDE RECORDS SUMMARY | 2023-08-02 10:05 | XMS_ITS | Encounter Summary ---
Author Name Unknown Organization [facility] Address [address], [place] [address] Care Team Providers Care Bingo Cashier Name Role Phone Unassigned, Provider Primary Care Provider Unava ilable Encounter Details Date Type Department Care Team Description 02/28/2023 9:40 AM CDT Lab Visit [place] [address] [place] [address]. [place] [address] 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 use; Rheumatoid arthritis, involving unspecified site, unspecified whether rheumatoid factor present (HRC) Social History Tobacco Use Types Packs/Day Years Used Date Smoking Tobacco: Former Cigarettes 12 Alcohol Use Standard Drinks/Week Comments Yes 1 (1 standard drink = 0.6 oz pure alcohol) Drinks very infrequently, likely less than once per month. Sex and Gender Information Value Date Recorded Sex Assigned at Not on file Gender Identity Not on file Sexual Orientation Not on file documented as of this encounter Plan of Treatment Upcoming Encounters Date Type Department Care Team Description 11/06/2023 12:00 PM CDT Appointment [facility] [address] [place] [address] DesileIdris walters W, DO [address] [place] [address] 01/17/2024 10:45 AM CDT Appointment [facility] [address] [place] [address] Idris Torrez, DO [address] [place] [address] documented as of this encounter Procedures Procedure Name Priority Date/Time Associated Diagnosis Comments CBC AND DIFFERENTIAL PANEL Routine 02/28/2023 9:50 AM CDT 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 use HEPATITIS B SURFACE ANTIBODY Routine 02/28/2023 9:50 AM CDT 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 use COMPLETE BLOOD COUNT-W/DIFF Routine 02/28/2023 9:50 AM CDT 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 use COMPREHENSIVE METABOLIC PANEL Routine 02/28/2023 9:50 AM CDT 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 use HEPATITIS C ANTIBODY, WITH REFLEX Routine 02/28/2023 9:50 AM CDT 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 use C-REACTIVE PROTEIN Routine 02/28/2023 9: 50 AM CDT Rheumatoid arthritis, involving unspecified site, unspecified whether rheumatoid factor present (HRC) HBSAG (HEPATITIS B SURFACE AG) Routine 02/28/2023 9:50 AM CDT 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 use HEPATITIS B CORE,AB Routine 02/28/2023 9 :50 AM CDT 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 use ESR Routine 02/28/2023 9:50 AM CDT Rheumatoid arthritis, involving unspecified site, unspecified whether rheumatoid factor present (HRC) documented in this encounter Results * (ABNORMAL) Complete Blood Count-W/Diff (02/28/2023 9:50 AM CDT) WBC 14.1(H) 3.5 - 10.5 x10(9)/L 02/28/2023 10:09 AM CDT [place] [id number] RBC 3.72(L) 4.32 - 5.72 x10(12)/L 02/28/2023 10:09 AM CDT [place] [id number] Hemoglobin 10.5(L) 13.5 - 17.5 g/dL 02/28/2023 10:09 AM CDT [place] [address] [facility] HCT 33.5(L) 38.8 - 50.0 % 02/28/2023 10:09 AM [place] [address] [facility] MCV 90.1 80.0 - 100.0 fL 02/28/2023 10:09 AM [place] [address] [facility] MCH 28.2 27.6 - 33.3 pg 02/28/2023 10:09 AM [place] [address] [facility] MCHC 31.3(L) 31.5 - 35.2 g/dL 02/28/2023 10:09 AM [place] [address] [facility] RDW 17.0(H) 11.9 - 15.5 % 02/28/2023 10:09 AM [place] [address] [facility] Platelets 524(H) 150 - 450 x10(9)/L 02/28/2023 10:09 AM [place] [address] [facility] Automated NRBC 0 <=0 /100 WBC 02/28/2023 10:09 AM [place] [address] [facility] Neutrophil Absolute 10.7(H) 1.7 - 7.0 10(9)/L 02/28/2023 10:09 AM [place] [address] [facility] Lymphocyte Absolute 1.8 1.0 - 4.8 10(9)/L 02/28/2023 10:09 AM [place] [address] [facility] Monocyte Absolute 1.0(H) 0.2 - 0.9 10(9)/L 02/28/2023 10:09 AM [place] [address] [facility] Eosinophil Absolute 0.1 0.0 - 0.5 10(9)/L 02/28/2023 10:09 AM [place] [address] [facility] Basophil Absolute 0.1 0.0 - 0.3 10(9)/L 02/28/2023 10:09 AM [place] [address] [facility] Immature Granulocyte % 3.0(H) 0.0 - 0.5 % 02/28/2023 10:09 AM [place] [address] [facility] Blood Venipuncture / Unknown 02/28/2023 9:50 AM CDT 02/28/2023 9:50 AM CDT Idris W Desilet DO LAB_1 [place] [address] [facility] [address] [place] [address] [phone] * Hepatitis C Antibody, with Reflex (02/28/2023 9:50 AM CDT) Pathologist [facility] Hepatitis C Antibody Negative (Non Reactive) Negative (Non Reactive) 02/28/2023 2:22 PM CDT [facility] Comment:Antibodies to HCV no t detected. Does not exclude the possiblity of exposure to HCV. Blood Venipuncture / Unknown 02/28/2023 9:50 AM CDT 02/28/2023 9:50 AM CDT Idris Drill Map Desilet DO LAB_1 Performing Organization Address City/[facility]/ZIP Co de Phone Number [facility] [address] [place] [address] * Hepatitis B Surface Antigen (02/28/2023 9:50 AM CDT) Pathologist [facility] Hepatitis B Surface Antigen Negative (Non Reactive) Negative (Non Reactive) 02/28/2023 2:49 PM CDT [facility] Blood Venipuncture / Unknown 02/28/2023 9:50 AM CDT 02/28/2023 9:50 AM CDT OpaliTagged Desilet DO LAB_1 [facility] [address] * Hepatitis B Surface Antibody (02/28/2023 9:50 AM CDT) Pathologist [facility] Hep B Surf Antibody Result <2.0 mIU/mL 02/28/2023 3:22 PM CDT [facility] Hep B Surf Antibody Interpretation Negative (Non Reactive) Positive (Reactive) 02/28/2023 3:22 PM CDT [facility] Blood Venipuncture / Unknown 02/28/2023 9:50 AM CDT 02/28/2023 9:50 AM CDT Narrative [facility] - 02/28/2023 3:22 PM CDT Individual is considered not immune to HBV infection. Idris Marcilet DO LAB_1 Performing Organization Address [facility] de Phone Number [facility] [address] [place] [phone] [place] [address] * Hepatitis B Core Antibody (02/28/2023 9:50 AM CDT) Hepatitis B Core Antibody Negative (Non Reactive) Negative (Non Reactive) 02/28/2023 3:22 PM CDT [facility] Blood Venipuncture / Unknown 02/28/2023 9:50 AM CDT 02/28/2023 9:50 AM CDT Idris Brink Managed by Qilet DO LAB_1 Performing Organization Address [facility] de Phone Number [facility] [address] [place] [phone] [place] [address] * (ABNORMAL) C-Reactive Protein (02/28/2023 9:50 AM CDT) C-Reactive Protein 1.1(H) 0.0 - 0.5 mg/dL 02/28/2023 11:05 AM CDT [place] [address] [facility] Blood Venipuncture / Unknown 02/28/2023 9:50 AM CDT 02/28/2023 9:50 AM CDT Idris Brink Managed by Qilet DO LAB_1 Performing Organization Address [facility] de Phone Number [facility] [address] LAB[facility]ATORY [address] [place] [address], [facility] [phone] * (ABNORMAL) ESR (02/28/2023 9:50 AM CDT) Sedimentation Rate 97(H) 0 - 15 mm/hr 02/28/2023 10:56 AM CDT [facility] 385 LABORATORY Blood Venipuncture / Unknown 02/28/2023 9:50 AM CDT 02/28/2023 9:50 AM CDT Idris Brink Desilet DO LAB_1 [place] [address] [facility] [address] [place] [address], [facility] [phone] * (ABNORMAL) Comp Metabolic Panel (02/28/2023 9:50 AM CDT) Sodium 139 136 - 145 mmol/L 02/28/2023 11:05 AM [place] [address] [facility] Potassium 5.2(H) 3.5 - 5.1 mmol/L 02/28/2023 11:05 AM [place] [address] [facility] Chloride 103 98 - 109 mmol/L 02/28/2023 11:05 AM [place] [address] [facility] CO2 25 20 - 29 mmol/L 02/28/2023 11:05 AM [place] [address] [facility] Anion Gap 11 7 - 16 mmol/L 02/28/2023 11:05 AM [place] [address] [facility] Calcium 9.9 8.4 - 10.4 mg/dL 02/28/2023 11:05 AM [place] [address] [facility] BUN 39(H) 7 - 26 mg/dL 02/28/2023 11:05 AM [place] [address] [facility] Creatinine 1.44(H) 0.73 - 1.18 mg/dL 02/28/2023 11:05 AM [place] [address] [facility] Alkaline Phosphatase 57 40 - 150 U/L 02/28/2023 11:05 AM [place] [address] [facility] AST (SGOT) 13 10 - 40 U/L 02/28/2023 11:05 AM [place] [address] [facility] ALT (SGPT) 21 <=55 U/L 02/28/2023 11:05 AM [place] [address] [facility] Bilirubin, Total 0.3 0.2 - 1.2 mg/dL 02/28/2023 11:05 AM [place] [address] [facility] Protein, Total 7.7 6.4 - 8.3 g/dL 02/28/2023 11:05 AM [place] [address] [facility] Albumin 3.2(L) 3.5 - 5.0 g/dL 02/28/2023 11:05 AM CDT [place] [address] [facility] Glucose 56(L) 70 - 100 mg/dL 02/28/2023 11:05 AM T [place] [address] [facility] Comment:The given reference range is for the fasting state. Non-fasting reference range for glucose is 70 - 180 mg/dL. GFR, Estimated 50(L) >60 mL/min/1.7 3m2 02/28/2023 11:05 AM CDT [place] [address] [facility] Hours Fasting 3.0 8 - 12 Hours 02/28/2023 11:05 AM T [place] [address] [facility] Blood Venipuncture / Unknown 02/28/2023 9:50 AM CDT 02/28/2023 9:50 AM CDT Narrative [place] [address] [facility] - 02/28/2023 11:05 AM CDT The National Kidney Disease Education Program suggests measuring Cystatin C in patients with eGFRcrea of 45 to 59 ml/min/1.73^2 who do not have other markers of kidney damage (i.e. elevated urine Albumin/Creatinine Ratio or a prior Cystatin C confirming the presence of chronic kidney disease). Idris Torrez DO LAB_1 [place] [address] [facility] [address] [place] [address], [facility] [phone] documented in this encounter Visit Diagnoses Diagnosis 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 use Encounter for long-term (current) use of other medications Rheumatoid arthritis, involving unspecified site, unspecified whether rheumatoid factor present (HRC) documented in this encounter Care Teams Bingo Cashier Relationship Specialty Start Date End Date Unassigned, Provider [address] [place] [address] PCP - General 04/01/00 04/09/23 documented as of this encounter
--- OUTSIDE RECORDS SUMMARY | 2023-08-02 10:05 | XMS_ITS | Clinical Summary ---
Author Name Unknown Organization [email or web address] Address [place], [place] [address] Care Team Providers Care Poured Concrete Wall Technician Name Role Phone Prashant Valdez MD Primary Care Provider [phone] Allergies Active Allergy Reactions Criticality Noted Date Comments Cephalosporins Hives High 06/03/2007 Medications Medication Sig Dispensed Refills Start Date End Date Status XALATAN 0.005 % EYE DROPS Place 1 Drop into right eye at bedtime. 0 06/03/2007 Active albuterol HFA (PRO-AIR,VENTOLIN, PROVENTIL) 90 mcg/actuation inhalerIndications :Counseling for travel Inhale 2 Puffs by mouth 4 times daily if needed. 1 Inhaler 2 06/02/2015 Active ACCU-CHEK MIGUEL PLUS TEST STRP strip TEST D UTD 0 11/28/2016 Active dutasteride 0.5 mg capsule Take 0.5 mg by mouth once daily. 11 07/09/2018 Active b complex vitamins (VITAMIN B COMPLEX) capsule Take 1 capsule by mouth once daily. 0 07/15/2018 Active Glucosamine-Chondr oitin 250-200 mg tablet Take 1 Tablet by mouth once daily. 0 05/09/2021 Active timolol hemihydrate (BETIMOL) 0.25 % ophthalmic solution Place 1 Drop into right eye once daily. 0 Active simvastatin (ZOCOR) 10 mg tablet Take 10 mg by mouth at bedtime. 0 Active calcium carbonate/vitamin D3 (CALCIUM 500 + D ORAL) Take 500 mg by mouth once daily. 0 Active nitroglycerin (NITROSTAT) 0.4 mg sublingual tabletIndications: Coronary artery disease, unspecified vessel or lesion type, unspecified whether angina present, unspecified whether alutiiq or transplanted heart Place 1 Tablet (0.4 mg) under the tongue every 5 minutes if needed for Chest Pain. 30 Tablet 1 08/10/2021 Active ferrous sulfate, 65 mg elemental, tablet Take 1 Tablet (325 mg) by mouth once daily with a meal. 0 08/25/2021 Active cholecalciferol (VITAMIN D3) 1,000 unit capsule Take 1 Capsule (1,000 units) by mouth once daily. 0 08/25/2021 Active glipiZIDE (GLUCOTROL) 5 mg tablet Take 5 mg by mouth 2 times daily before meals. 0 Active WalkerIndications: S/P CABG x 4 Walker with front wheels for home use. 1 Each 0 09/16/2021 Active acetaminophen (TYLENOL EXTRA STRGTH) 500 mg tablet Take 2 Tablets (1,000 mg) by mouth every 6 hours if needed. Max acetaminophen dose: 4000mg in 24 hrs. 0 09/17/2021 Active metFORMIN (GLUCOPHAGE XR) 500 mg Extended-Release tabletIndications: Type 2 diabetes mellitus with hyperglycemia, without long-term current use of insulin (HC) Take 2 Tablets (1,000 mg) by mouth 2 times daily with meals. 0 09/17/2021 Active Lantus Solostar U-100 Insulin 100 unit/mL (3 mL) penIndications:Typ e 2 diabetes mellitus with hyperglycemia, without long-term current use of insulin (HC) Inject 24 units subcutaneous before bedtime. 3 04/18/2022 Active HumaLOG KwikPen Insulin 100 unit/mL inpn pen 0 05/04/2023 Active folic acid 1 mg tablet Take 1 mg by mouth. 0 02/28/2023 02/28/20 2 4 Active aspirin chewable 81 mg chewable tablet Aspirin Oral inactive 0 Active spironolactone (ALDACTONE) 25 mg tabletIndications: Heart failure with preserved ejection fraction, unspecified HF chronicity (HC) Take 1 Tablet (25 mg) by mouth every morning. 90 Tablet 3 05/08/2023 Active torsemide (DEMADEX) 20 mg tabletIndications: Heart failure with preserved ejection fraction, unspecified HF chronicity (HC) Take 1 Tablet (20 mg) by mouth once daily. 90 Tablet 3 05/08/2023 Active magnesium oxide (Mag-Ox) 400 mg tabletIndications: Heart failure with preserved ejection fraction, unspecified HF chronicity (HC),Hypomagnesemi a Take 1 Tablet (400 mg) by mouth once daily. 90 Tablet 3 05/08/2023 Active carvediloL (COREG) 6.25 mg tabletIndications: S/P CABG x 4,HTN (hypertension) Take 1 Tablet (6.25 mg) by mouth two times daily with meals. 180 Tablet 3 05/08/2023 Active methotrexate (RHEUMATREX) 2.5 mg tablet Take 15 mg by mouth once weekly. 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 08/25/2021 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 Abnormal nuclear stress test 08/10/2021 Dyslipidemia 08/10/2021 Type 2 diabetes mellitus wit h hyperglycemia, without long-term current use of insulin 05/09/2021 Abdominal aortic aneurysm (AAA) without rupture 05/09/2021 Permanent atrial fibrillation 01/24/2019 Elevated PSA 10/13/2015 Erectile dysfunction 10/13/2015 HTN (hypertension) 06/02/2015 Gastric ulcer 06/23/2010 Overview: EGD 06/2010 ulcers Encounters Date Type Department Care Team Description 05/09/2023 Telephone [facility] [place] [address] [place] [address] [address] [place] [address] Nettie Benitez NP Results 05/08/2023 1:38 PM PARTS ASSEMBLER - 05/08/2023 11:59 PM PARTS ASSEMBLER Hospital Encounter [facility] [address] [place] [address] Heart failure with preserved ejection fraction, unspecified HF chronicity (HC); S/P CABG x 4; HTN (hypertension); Abdominal aortic aneurysm (AAA) without rupture, unspecified part (HC); Dyspnea, unspecified type 05/08/2023 1:00 PM PARTS ASSEMBLER Office Visit [facility] [place] [place] [address] Nettie Benitez, JUANCARLOS Follow Up; CV General Cardiology Est (Annual ) 05/08/2023 Travel from Last 3 Months Immunizations Name Administration Dates Next Due Influenza, High-dose Inactivated 04/09/2018 Influenza, IIV3 (Age >=3 years) 06/03/2007 Pneumococcal Poly,23-Valent (Pneumovax) 04/09/20 18,10/23/2008 Pneumococcal conj 13-Valent (Prevnar 13) 015 Tdap 06/02/2008 Typhoid (injectable) 06/02/2015 Zoster (Zostavax-ZVL, live) 12/30/2010 Family History Medical History Relation Name Comments Diabetes Father Diabetes Mother Relation Name Status Comments Father Mother Social History Tobacco Use Types Packs/Day Years Used Date Smoking Tobacco: Former Cigarettes 1 15 0 07/02/1961 - 07/02/1976 Smokeless Tobacco: Never Tobacco Cessation:Counseling Given: Yes Alcohol Use Standard Drinks/Week Comments Yes 0 (1 standard drink = 0.6 oz pur e alcohol) rare PHQ-2 Answer Date Recorded PHQ-2 TOTAL SCORE 0 09/23/2021 Social Connections Answer Date Recorded Frequency of Communication with Friends and Fami ly Not on file 06/23/2021 Financial Resource Strain Answer Date R ecorded Difficulty of Paying Living Expenses Not on file 06/23/2021 Difficulty of Paying Living Expenses Not on file 06/23/2021 Sex and Gender Information Value Date Recorded Sex Assigned at Not on file Gender Identity Not on file Sexual Orientation Not on file Obstetrics History Last Filed Vital Signs Vital Sign Reading Time Taken Comments Blood Pressure 138/60 05/08/2023 12:49 PM PARTS ASSEMBLER Pulse 84 05/08/2023 12:49 PM PARTS ASSEMBLER Temperature 36.9 ??C (98.4 ??F) 09/17/2021 7:47 AM CD T Respiratory Rate 19 09/23/2021 1:02 PM CDT Oxygen Saturation 96% 05/08/2023 12:49 PM PARTS ASSEMBLER Inhaled Oxygen Concentration - - Weight 93.4 kg (206 lb) 05/08/2023 12:49 PM PARTS ASSEMBLER Height 170.2 cm (5' 7) 05/08/2023 12:49 PM PARTS ASSEMBLER Body Mass Index 32.26 05/08/2023 12:49 PM PARTS ASSEMBLER Plan of Treatment Upcoming Encounters Date Type Department Care Team (Late st Contact Info) Description 08/14/2023 11:00 AM PARTS ASSEMBLER Cardiac Device Check [facility] [place] [facility] [address] [place] [address] Health Maintenance Due Date Last Done Comments Depression screening for age 12+ 1956 Hepatitis C screening for ag e 18-79 1962 Medicare Wellness for age 65+ 2009 Zoster (shingles) series for age 50+ (2 of 3) 02/24/2011 12/30/2010 Tetanus booster 06/02/2018 06/02/2008 Influenza for age 65+ 03/02/2023 04/09/2018, 007 BMI (ht and wt on same day) for age 18+ 05/08/2024 05/08/2023, 04/20/2022, 11/18/2021, Additional history exists Tdap Completed 06/02/2008 Pneumococcal series for age 65+ Completed 04/09/2018, 10/07/2014, 10/23/2008 COVID-19 vaccine series Completed 04/03/20 23, 03/14/2022, 12/16/2021, Additional history exists Goals Goal Patient Goal Type Associated Problems Recent Progress Patient-Stated? Author BLOOD PRESSURE - MAINTAINS BP less than 140/90 Blood Pressure Vivien Read Procedures Procedure Name Priority Date/Time Associated Diagnosis Comments LIPID PANEL Today 05/08/2023 1:41 PM PARTS ASSEMBLER Heart failure with preserved ejection fraction, unspecified HF chronicity (HC) S/P CABG x 4 HTN (hypertension) Abdominal aortic aneurysm (AAA) without rupture, unspecified part (HC) Dyspnea, unspecified type PRO-BNP Today 05/08/2023 1:41 PM PARTS ASSEMBLER Heart failure with preserved ejection fraction, unspecified HF chronicity (HC) S/P CABG x 4 HTN (hypertension) Abdominal aortic aneurysm (AAA) without rupture, unspecified part (HC) Dyspnea, unspecified type BASIC METABOLIC PANEL Today 05/08/2023 1:41 PM PARTS ASSEMBLER Heart failure with preserved ejection fraction, unspecified HF chronicity (HC) S/P CABG x 4 HTN (hypertension) Abdominal aortic aneurysm (AAA) without rupture, unspecified part (HC) Dyspnea, unspecified type from Last 3 Months Results * (ABNORMAL) PRO-BNP (05/08/2023 1:41 PM PARTS ASSEMBLER) [facility] PRO-BNP 1,309(H) <450 pg/mL 05/08/2023 3:13 PM PARTS ASSEMBLER [facility] Blood BLOOD SPECIMEN / Unknown Venipuncture / Unknown 05/08/2023 1:41 PM PARTS ASSEMBLER 05/08/2023 1:55 PM PARTS ASSEMBLER Narrative [facility] - 05/08/2023 3:13 PM PARTS ASSEMBLER The following cut-points have been suggested for the use of proBNP for the diagnostic evaluation of heart failure (HF) in patient with acute dyspnea. Patients with eGFR >= 60 Diagnosis (rule in CHF) ? <50 Years Old ?450 pg/mL 50 - 75 Years Old ?900 pg/mL >75 Years Old ? 1800 pg/mL Exclusion (rule out CHF) Age Independent ?300 pg/mL A cutoff of 1200 pg/mL for patients with an eGFR <60 yields a diagnostic sensitivity of 89% and specificity of 72% for acute congestive heart failure. ? Nettie Benitez NP SEND OUTS [facility] [address] [place] [address] * (ABNORMAL) LIPID PANEL (05/08/2023 1:41 PM PARTS ASSEMBLER) CHOLESTEROL,TOTAL 93(L) 100 - 199 mg/dL 05/08/2023 3:13 PM PARTS ASSEMBLER [facility] Comment: Cholesterol, Total Reference Ranges Desirable <200 mg/dL Borderline 200-239 mg/dL High >=240 mg/dL TRIGLYCERIDES 214(H) <150 mg/dL 05/08/2023 3:13 PM PARTS ASSEMBLER [facility] HDL CHOLESTEROL 36(L) >40 mg/dL 3:13 PM PARTS ASSEMBLER [facility] NON-HDL CHOLESTEROL 57 <145 mg/dl 05/08/2023 3:13 PM PARTS ASSEMBLER [facility] CHOL/HDL RATIO 2.58 <4.50 05/08/2023 3:13 PM PARTS ASSEMBLER [facility] LDL CHOLESTEROL 14 <=130 mg/dL 05/08/2023 3:13 PM PARTS ASSEMBLER [facility] VLDL CHOLESTEROL 43(H) <=30 mg/dL 05/08/2023 3:13 PM PARTS ASSEMBLER [facility] PROVIDER ORDERED STATUS RANDOM 05/08/2023 3:13 PM [facility] Blood BLOOD SPECIMEN / Unknown Venipuncture / Unknown 05/08/2023 1:41 PM PARTS ASSEMBLER 05/08/2023 1:55 PM PARTS ASSEMBLER Nettie Benitez NP CHEMISTRY Performing Organization Address City/State/[facility] Co de Phone Number [facility] [address] [place] [address] * (ABNORMAL) BASIC METABOLIC PANEL (05/08/2023 1:41 PM PARTS ASSEMBLER) SODIUM 139 136 - 145 mmol/L 05/08/2023 3:13 PM PARTS ASSEMBLER [facility] POTASSIUM 5.0 3.5 - 5.1 mmol/L 05/08/2023 3:13 PM PARTS ASSEMBLER [facility] CHLORIDE 97(L) 98 - 107 mmol/L 05/08/2023 3:13 PM PARTS ASSEMBLER [facility] CO2,TOTAL 27 22 - 29 mmol/L 05/08/2023 3:13 PM PARTS ASSEMBLER [facility] ANION GAP 15 5 - 18 05/08/2023 3:13 PM PARTS ASSEMBLER [facility] GLUCOSE 135(H) 70 - 99 mg/dL 05/08/2023 3:13 PM PARTS ASSEMBLER [facility] CALCIUM 9.7 8.8 - 10.2 mg/dL 05/08/2023 3:13 PM PARTS ASSEMBLER [facility] BUN 29(H) 8 - 23 mg/dL 05/08/2023 3:13 PM PARTS ASSEMBLER [facility] CREATININE 1.30(H) 0.70 - 1.20 mg/dL 05/08/2023 3:13 PM PARTS ASSEMBLER [facility] BUN/CREAT RATIO 22(H) 10 - 20 3:13 PM PARTS ASSEMBLER [facility] eGFR 56(L) >90 mL/min/1.7 3m2 05/08/2023 3:13 PM PARTS ASSEMBLER [facility] Comment:As of 2021, eG FR is calculated by the CKD-EPI creatinine equation without race adjustment. ??eGFR can be influenced by muscle mass, exercise, and diet. ??The reported eGFR is an estimation only and is only applicable if the renal function is stable. Blood BLOOD SPECIMEN / Unknown Venipuncture / Unknown 05/08/2023 1:41 PM PARTS ASSEMBLER 05/08/2023 1:55 PM PARTS ASSEMBLER Nettie Benitez NP CHEMISTRY [facility] [address] [place] [address] from Last 3 Months Advance Directives Latest Code Status on File Code Status Date Activated Date Inactivated Comments Full Code 09/05/2021 10:28 AM 09/17/2021 5:41 PM Question Answer Comments Code Status Discussion: Reviewed Preferences Code Status History Code Status Date Activated Date Inactivated Comments Full Code 08/10/2021 8:55 AM 08/10/2021 5:19 PM Question Answer Comments Code Status Discussion: Reviewed Preferences Full Code 05/10/2021 3:37 PM 05/11/2021 3:34 PM Question Answer Comments Code Status Discussion: Reviewed Preferences Care Teams Poured Concrete Wall Technician Relationship Specialty Start Date End Date Prashant Valdez MD PCP - General Family Practice 08/23/17
--- OUTSIDE RECORDS SUMMARY | 2023-08-02 10:05 | XMS_ITS | Encounter Summary ---
Author Name Unknown Organization [facility] Address [address], [place] [address] Care Team Providers Care Electronic Bench Technician Name Role Phone Unassigned, Provider Primary Care Provider Unava ilable Encounter Details Date Type Department Care Team Description 02/28/2023 Notes/Orders [facility] [address] [place] [address]. [place], [place] [address] Desilet, Luke W, DO [address] [place], [place] [id number] Social History Tobacco Use Types Packs/Day Years [...] Team Description 11/06/2023 12:00 PM CDT Appointment [facility] [address] [place] [address] Desilet, Luke W, DO [address] [place] [address] 01/17/2024 10:45 AM CDT Appointment [facility] [address] [place] [address] Desilet, Luke W, DO [address] [place], [place] [phone] documented as of this encounter Visit Diagnoses Not on filedocumented in this encounter Care Teams Electronic Bench Technician Relationship Specialty Start Date End Date Unassigned, Provider [address] [place] [address] PCP - General 04/01/00 04/09/23 documented as of this encounter
--- OUTSIDE RECORDS SUMMARY | 2023-08-02 10:05 | XMS_ITS | Encounter Summary ---
Author Name Unknown Organization [facility] Address [address] [place] [address] Care Team Providers Care Exchange Operator Name Role Phone Unassigned, Provider Primary Care Provider Unava ilable Reason for Visit * Reason Comments Abnormal Lab Encounter Details Date Type Department Care Team Description 02/28/2023 Telephone [facility] [address] [place] [address]. [place] [address] Idris Torrez DO [address] [place] [address] Abnormal Lab Social History Tobacco Use Types Packs/Day Years [...] Nursing Notes * Idris Torrez DO - 02/28/2023 2:08 PM CDT I called patient to discuss lab results thus far from rheumatology visit today. Creatinine slightlyelevated at 1.44 with eGFR of 50 (previous baseline of eGFR of 62). Potassium borderline elevated at 5.2. CBC consistent with acute inflammation with elevated WBC count and platelet count in additionto ESR/CRP elevation, likely from rheumatoid arthritis. Given mild creatinine elevation and potassium elevation, I instructed patient to maintain adequate hydration and avoid NSAIDs in the coming days. I recommended he use Tylenol for as needed pain relief. Recommended follow up BMP in 1 week in [place]. He verbalized understanding and agreement. Idris Torrez DO 02/28/2023 2:10 PM documented in this encounter Plan of Treatment Upcoming Encounters Date Type Department Care Team Description 11/06/2023 12:00 PM CDT Appointment [facility] [address] [place] [address] Idris Torrez DO [address] [place], [place] [address] 01/17/2024 10:45 AM CDT Appointment [facility] [address] [place] [address] Idris Torrez DO [address] [place] [address] documented as of this encounter Results * (ABNORMAL) Basic Metabolic Panel (03/06/2023 4:24 PM CDT) Sodium 134(L) 136 - 145 mmol/L 03/07/2023 4:47 PM [facility] Potassium 5.0 3.5 - 5.1 mmol/L 03/07/2023 4:47 PM [facility] Chloride 99 98 - 109 mmol/L 03/07/2023 4:47 PM [facility] CO2 22 20 - 29 mmol/L 03/07/2023 4:47 PM [facility] Anion Gap 13 7 - 16 mmol/L 03/07/2023 4:47 PM [facility] Calcium 9.7 8.4 - 10.4 mg/dL 03/07/2023 4:47 PM [facility] BUN 39(H) 7 - 26 mg/dL 03/07/2023 4:47 PM [facility] Creatinine 1.20(H) 0.73 - 1.18 mg/dL 03/07/2023 4:47 PM [facility] Glucose 120(H) 70 - 100 mg/dL 03/07/2023 4:47 PM [facility] Comment:The given reference range is for the fasting state. Non-fasting reference range for glucose is 70 - 180 mg/dL. GFR, Estimated >60 >60 mL/min/1.7 3m2 03/07/2023 4:47 PM CDT [facility] Hours Fasting 8.0 8 - 12 Hours 03/07/2023 4:47 PM CDT [facility] Blood Venipuncture / Unknown 03/06/2023 4:24 PM CDT 03/06/2023 4:32 PM CDT Luke W Desilet DO LAB_1 [facility] [address] [place] [address], [facility] [phone] documented in this encounter Visit Diagnoses Diagnosis Elevated serum creatinine- Primary Other nonspecific findings on examination of blood Serum potassium elevated Hyperpotassemia documented in this encounter Care Teams Exchange Operator Relationship Specialty Start Date End Date Unassigned, Provider [address] [place] [address] PCP - General 04/01/00 04/09/23 documented as of this encounter
--- OUTSIDE RECORDS SUMMARY | 2023-08-02 10:05 | XMS_ITS | Encounter Summary ---
Author Name Unknown Organization [facility] Address [address] [place] [address] Care Team Providers Care Short Order Fry Cook Name Role Phone Needs Pcp, Assignment Primary Care Provider [phone] Reason for Visit * Reason Comments Follow-up Encounter Details Date Type Department Care Team Description 07/24/2023 2:45 PM PERFORATOR OPERATOR Office Visit [facility] [address] [place] [address] Idris Torrez DO [address] [place] [address] 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); 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 use; Leukocytosis, unspecified type (HRC) Social History Tobacco Use Types Packs/Day [...] on file documented as of this encounter Last Filed Vital Signs Vital Sign Reading Time Taken Comments Blood Pressure 142/68 07/24/2023 2:32 PM PERFORATOR OPERATOR Pulse 85 07/24/2023 2:32 PM PERFORATOR OPERATOR Temperature - - Respiratory Rate - - Oxygen Saturation - - Inhaled Oxygen Concentration - - Weight 92.3 kg (203 lb 8 oz) 07/24/2023 2:32 PM PERFORATOR OPERATOR Height - - Body Mass Index 31.87 04/10/2023 10:06 AM CDT documented in this encounter Patient Instructions * Patient Instructions* Idris Torrez DO - 07/24/2023 2:45 PM PERFORATOR OPERATOR We are seeing you in the rheumatology clinic today to follow up on rheumatoid arthritis. It looks like your disease is relatively well-controlled with methotrexate at the current dose. Continue methotrexate 6 tablets weekly on Sundays Continue folic acid 1 mg daily Methotrexate monitoring labs today. You need to get methotrexate labs every 3 months. I have ordered a standing lab to be done every 3 months in [place] at our lab. You will next be due for labs on or after 10/23/2023. Follow up with me in 6 months. ORATOR OPERATOR documented in this encounter Progress Notes * Idris Torrez DO - 07/24/2023 10:15 AM CST RHEUMATOLOGY PROGRESS NOTE Patient: Joni Moncada Preferred Name: Joni Reason for visit: Seropositive rheumatoid arthritis Other History: CKD 3A, Diabetes (type 1.5), hypertension, hyperlipidemia, atrial fibrillation on anticoagulation with warfarin, history of gastric ulcer, nephrolithiasis, BPH, abdominal aortic aneurysm, LV hypertrophy, hearing loss, diverticulosis, COPD, monoclonal gammopathy (?MGUS), right eye vision loss, macular pigment epithelial tear, hyperuricemia Rheumatic Disease History: Seropositive rheumatoid arthritis (borderline +RF, high titer +CCP) - presented to Rheumatology in January 2023 with small joint symmetric arthritis flares previously thought to be gout. Had positive RA serologies with PCP in October 2022. Was started on prednisone taper but after flare of joint symptoms in approximately December 2022, patient remained on prednisone 10 mg daily. Care complicated by diabetes and other comorbidities noted above. - initiated weekly oral methotrexate January 2023 and tapered prednisone. Significant symptom improvement at rheumatology follow up April 2023 and planned to taper off of prednisone. Rheumatologic Serologies: Positive: RF (16, reference range 0-14 IU/mL), CCP (184, reference range 0-19 units) Rheumatologic medications: - methotrexate (oral) 15 mg weekly - folic acid 1 mg daily History of Present Illness: Joni presents to the Rheumatology Clinic today for three-month follow up of seropositive rheumatoid arthritis. He reports that he has been doing relatively well in recent months. Has not had any significant swelling, pain, or stiffness in his hands. Has some mild swelling at the right wrist occasionally. Also endorses an episode in interval in which his left shoulder became very painful and stiff for about 2-3 days and then subsided. He has been doing exercises for the left shoulder. Tolerating oral methotrexate well. Takes 6 tablets of methotrexate on Sundays. Since tapering off of prednisone, has not had any worsening of joint pain, swelling, or stiffness symptoms. Blood sugar control h as improved as well. He is up-to-date on COVID-19, influenza, and RSV vaccinations which he received in interval. Was scheduled for DEXA scan this morning but missed that. He may try to get a DEXA scan scheduled locally. Gets most of his care in [place], [place]. Pain & RAPID3: In flowsheet if completed by patient. Pain =3.0; RAPID-3 = 5.2 OBJECTIVE Physical Examination: VS: BP (!) 142/68 (BP Location: Left Arm, BP Cuff Size: Regular) Pulse 85 Wt 203 lb 8 oz (92.3 kg) BMI 31.87 kg/m?? General: alert, oriented, no acute distress Skin: no rheumatic rashes detected, no skin thickening noted, normal oral aperture Head / Scalp: non-tender Eyes: Externally clear ENT: moist mucous membranes without ulcerations noted, nares clear without blood Cardio: regular rate and rhythm on auscultation without significant murmurs, rubs, or gallops Lungs: clear to auscultation bilaterally Lower Extremities: no edema noted Musculoskeletal: All four limbs examined. Very mild swelling appreciated at ulnar aspect of right wrist. No other synovitis on exam. No tenderness with palpation, erythema, warmth, or swelling noted in the upper or lower extremity joints. Normal range of motion in all joints. Laboratory Data: Reviewed recent relevant results: 04/10/2023: Creatinine 1.30, EGFR 56 CBC with leukocytosis (WBC count 16.2K), stable anemia with hemoglobin of 10.7 grams/deciliter, elevated ANC at 13,000, elevated monocytes at 1100. ALT within normal limits at 15 units/liter Albumin within normal limits at 3.5 grams/deciliter Radiographic Information: N/A Microbiology: N/A Pathology: N/A Assessment/Plan Joni Moncada is a pleasant 78 y.o. male who presented to the rheumatology department for seropositive rheumatoid arthritis. Joni was seen today for follow-up. Diagnoses and all orders for this visit: 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) - ALT (SGPT) (every 3 months); Standing - CBC -W/Diff (every 3 months); Standing - Creatinine / GFR (every 3 months); Standing - Albumin; Standing 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 use - Albumin; Future - ALT (SGPT); Future - Creatinine / GFR; Future - CBC -W/Diff; Future - Vitamin D 25-Hydroxy, Total; Future - ALT (SGPT) (every 3 months); Standing - CBC -W/Diff (every 3 months); Standing - Creatinine / GFR (every 3 months); Standing - Albumin; Standing Leukocytosis, unspecified type (HRC) - Immunofixation, Serum (Immuno ELP); Future - Protein ELP (Serum); Future - Free Light Chains, Serum; Future - Complete Blood Count -W/Diff; Future - Flow Cytometry; Future - Calcium; Future Other orders - methotrexate 2.5 MG tablet; Take 6 Tablets (15 mg) by mouth once every week. Joni presents to the Rheumatology Clinic today for seropositive rheumatoid arthritis. Continues to do well on oral methotrexate 15 mg weekly. No significant worsening of joint pain, swelling, or stiffness after tapering off of prednisone in interval. Blood sugars are under better control per hisreport. Still has a little bit of residual right wrist swelling at the ulnar aspect of the right risk. RAPID3 score of 5.2 today indicating low disease activity. Doing well overall. Labs from April rheumatology visit showed notable leukocytosis. Was on prednisone at the time. Wewill further workup leukocytosis as below. Has known CKD 3A with baseline EGFR between 50-60. This has been stable. We will watch this closely with methotrexate use. He may only eat a lower dose of methotrexate such as 15 mg weekly for good disease control of rheumatoid arthritis given mild CKD. Plan: -continue oral methotrexate 15 mg weekly -continue folic acid 1 mg daily -update methotrexate monitoring labs today (CBC, creatinine, ALT, albumin) -ordered standing methotrexate labs every 3 months (CBC, creatinine, ALT, albumin) -workup leukocytosis with SPEP, serum free light chains, immunofixation, and flow cytometry today -update calcium and 25 hydroxyvitamin D given steroid use and possible osteopenia/osteoporosis -schedule DEXA scan either in our clinic or locally in [place], [place]. -follow up in the rheumatology clinic in 6 months Idris Torrez DO 07/24/2023 4:22 PM This documentation was completed using [employer] Flu[employer] Direct Dictation Software which may contain typographical and word substitution errors. Please contact my office if clarification is needed. ORATOR OPERATOR documented in this encounter Plan of Treatment Upcoming Encounters Date Type Department Care Team Description 11/06/2023 12:00 PM CDT Appointment [facility] [address] [place] [address] Idris Torrez DO [address] [place], [place] [id number] 01/17/2024 10:45 AM CDT Appointment [facility] [address] [place] [address] Idris Torrez DO [address] [place], [place] [id number] Scheduled Orders Name Type Priority Associated Diagnoses Orde r Schedule ALT (SGPT) (every 3 months) Lab Routine 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) 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 use Every 3 Months for 4 Occurrences starting 07/24/2023 until 07/24/2024 CBC -W/Diff (every 3 months) Lab Routine 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) 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 use Every 3 Months for 4 Occurrences starting 07/24/2023 until 07/24/2024 Creatinine / GFR (every 3 months) Lab Routine 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) 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 use Every 3 Months for 4 Occurrences starting 07/24/2023 until 07/24/2024 Albumin Lab Routine 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) 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 use Every 3 months for 4 Occurrences starting 07/24/2023 until 07/24/2024 documented as of this encounter Results * Vitamin D 25-Hydroxy, Total (07/24/2023 3:34 PM PERFORATOR OPERATOR) Pathologist [facility] Vitamin D, 25-OH, Total 47 30 - 80 ng/mL 07/24/2023 9:16 PM PERFORATOR OPERATOR [facility] Blood Venipuncture / Unknown 07/24/2023 3:34 PM PERFORATOR OPERATOR 07/24/2023 3:34 PM PERFORATOR OPERATOR Luke W Desilet DO LAB_1 Performing Organization Address City/[facility]/ZIP Co de Phone Number [facility] [address] * Calcium (07/24/2023 3:34 PM PERFORATOR OPERATOR) [facility] Calcium 10.1 8.4 - 10.4 mg/dL 07/24/2023 4:57 PM PERFORATOR OPERATOR [facility] Blood Venipuncture / Unknown 07/24/2023 3:34 PM PERFORATOR OPERATOR 07/24/2023 3:34 PM PERFORATOR OPERATOR Luke W Desilet DO LAB_1 Performing Organization Address [facility] de Phone Number [facility] [address] [place] [address] [phone] * Flow Cytometry (07/24/2023 3:34 PM PERFORATOR OPERATOR) [facility] Case Report Flow Cytometry ?Case: [id number] ? Authorizing Provider: ??Desilet, Luke W, DO ?Collected: ? 07/24/2023 1534 ? Ordering Location: ? [facility] ?Received: ?07/24/2023 1534 ? Pathologist: ? Gisele Thakkar MD ? Specimen: ?Blood, Venous ? 4 2:13 PM [facility] Flow Interpretation Peripheral blood, flow cytometric immunophenotyping: [...] of CD3 or CD5. 4 2:13 PM [facility] Flow Processing Information Received 3 ml of blood Cellularity: 7,766 cells per microliter Viability: 91.66 % Antibodies Performed: T cells: CD3, CD4, CD5, CD8 B cells: CD10, CD19, CD20, kappa, lambda Other: CD45 4 2:13 PM [facility] Clinical Information leukocytosis 4 2:13 PM [facility] ASR Disclaimer This test was developed and the performance characteristics were determined by [facility]. It has not been cleared or approved by the U.S. Food and Drug Administration. The FDA has determined that such clearance or approval is not necessary. By his/her signature, the pathologist listed as making the final diagnosis certifies that he/she has personally reviewed this case and confirmed or corrected the diagnosis. Technical Component performed at: [facility], [address] [place] [address] Professional Component performed at: [facility], [address] [place] [id number] 4 2:13 PM PERFORATOR OPERATOR [facility] Embedded Images 4 2:13 PM PERFORATOR OPERATOR [facility] Blood VENOUS BLOOD SPECIMEN / Unknown Venipuncture / Unknown 07/24/2023 3:34 PM PERFORATOR OPERATOR 07/24/2023 3:34 PM PERFORATOR OPERATOR OpalBannot DO LAB PATHOLOGY Performing Organization Address City/[facility]/ZIP Co de Phone Number [facility] [address] [place] [address], [id number] [place] [address] * (ABNORMAL) Free Light Chains, Serum (07/24/2023 3:34 PM PERFORATOR OPERATOR) Pathologist [facility] [place] Free Light Chains 5.12(H) 0.33 - 1.94 mg/dL 07/25/2023 10:16 AM [facility] Lambda Free Light Chains 2.30 0.57 - 2.63 mg/dL 07/25/2023 10:16 AM [facility] [place]/Lambda Ratio 2.23(H) 0.26 - 1.65 07/25/2023 10:16 AM [facility] Blood Venipuncture / Unknown 07/24/2023 3:34 PM PERFORATOR OPERATOR 07/24/2023 3:34 PM PERFORATOR OPERATOR Narrative [facility] - 07/25/2023 10:16 AM PERFORATOR OPERATOR In the setting of renal disease, reference intervals for the FLC ratio are 0.46- 2.62, 0.48-3.38, and 0.54-3.30 for eGFR 45-59, 30-44, and < 30 mL/min/1.73 m2, respectively. Idris [employer] LAB_1 Performing Organization Address City/[facility]/ZIP Co de Phone Number [facility] [address] [address] [phone] * (ABNORMAL) Protein ELP (Serum) (07/24/2023 3:34 PM PERFORATOR OPERATOR) Pathologist [facility] Total Protein 7.1 6.4 - 8.3 g/dL 07/26/2023 1:07 PM [facility] Albumin 3.4 3.4 - 4.8 g/dL 07/26/2023 1:07 PM [facility] Alpha 1 0.4 0.2 - 0.5 g/dL 07/26/2023 1:07 PM [facility] Alpha 2 1.2(H) 0.5 - 1.1 g/dL 07/26/2023 1:07 PM [facility] Beta 1.1 0.6 - 1.1 g/dL 07/26/2023 1:07 PM [facility] Gamma 0.9 0.7 - 1.6 g/dL 07/26/2023 1:07 PM [facility] Monoclonal Jacky 0.0 <=0.0 g/dL 07/26/2023 1:07 PM [facility] Interpretation No monoclonal protein is detected in the serum. 07/26/2023 1:07 PM [facility] Signed Out By [facility] 07/26/2023 1:07 PM [facility] Blood Venipuncture / Unknown 07/24/2023 3:34 PM PERFORATOR OPERATOR 07/24/2023 3:34 PM PERFORATOR OPERATOR Luke W Desilet DO LAB_1 Performing Organization Address [facility]/State/[facility] Co de Phone Number [facility] [address] [phone] * Immunofixation, Serum (Immuno ELP) (07/24/2023 3:34 PM PERFORATOR OPERATOR) [facility] Immunofixati on, Serum No monoclonal protein is detected. 07/26/2023 1:07 PM [facility] Signed Out By [facility] 07/26/2023 1:07 PM [facility] Blood Venipuncture / Unknown 07/24/2023 3:34 PM PERFORATOR OPERATOR 07/24/2023 3:34 PM PERFORATOR OPERATOR Idris Brink Desilet DO LAB_1 Performing Organization Address City/[facility]/ZIP Co de Phone Number [facility] [address] [address], [facility] [phone] * (ABNORMAL) Creatinine / GFR (07/24/2023 3:34 PM PERFORATOR OPERATOR) Creatinine 1.26(H) 0.73 - 1.18 mg/dL 07/24/2023 4:57 PM PERFORATOR OPERATOR [facility] GFR, Estimated 58(L) >60 mL/min/1.7 3m2 07/24/2023 4:57 PM PERFORATOR OPERATOR [facility] Blood Venipuncture / Unknown 07/24/2023 3:34 PM PERFORATOR OPERATOR 07/24/2023 3:34 PM PERFORATOR OPERATOR Narrative [facility] - 07/24/2023 4:57 PM PERFORATOR OPERATOR The National Kidney Disease Education Program suggests measuring Cystatin C in patients with eGFRcrea of 45 to 59 ml/min/1.73^2 who do not have other markers of kidney damage (i.e. elevated urine Albumin/Creatinine Ratio or a prior Cystatin C confirming the presence of chronic kidney disease). Idris Brink DealerTrackilet DO LAB_1 Performing Organization Address [facility] Co de Phone Number [facility] [address] [place] [address], [facility] [phone] * ALT (SGPT) (07/24/2023 3:34 PM PERFORATOR OPERATOR) ALT (SGPT) 14 <=55 U/L 07/24/2023 4:57 PM PERFORATOR OPERATOR [facility] Blood Venipuncture / Unknown 07/24/2023 3:34 PM PERFORATOR OPERATOR 07/24/2023 3:34 PM PERFORATOR OPERATOR Idris Brink Desilet DO LAB_1 Performing Organization Address [facility]/ZIP Co de Phone Number [facility] [address] [place] [address], [facility] [phone] * (ABNORMAL) Albumin (07/24/2023 3:34 PM PERFORATOR OPERATOR) Albumin 3.4(L) 3.5 - 5.0 g/dL 07/24/2023 4:57 PM PERFORATOR OPERATOR [facility] Blood Venipuncture / Unknown 07/24/2023 3:34 PM PERFORATOR OPERATOR 07/24/2023 3:34 PM PERFORATOR OPERATOR Lumoe W Desilet DO LAB_1 [facility] [address] [place] [address], [facility] [phone] documented in this encounter Visit Diagnoses Diagnosis 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)- Primary 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 use Encounter for long-term (current) use of other medications Leukocytosis, unspecified type (HRC) documented in this encounter Care Teams Short Order Fry Cook Relationship Specialty Start Date End Date Needs Pcp, [place] [address] PCP - General 04/10/23 documented as of this encounter
--- OUTSIDE RECORDS SUMMARY | 2023-08-02 10:05 | XMS_ITS | Encounter Summary ---
Author Name Unknown Organization [facility] Address [address] [place] [address] Care Team Providers Care Help Desk Analyst Name Role Phone Unassigned, Provider Primary Care Provider Unava ilable Reason for Referral * Consult/Transfer Care (Routine) - New Request Specialty Diagnoses / Procedures Referred By Emre t Referred To Contact Diagnoses Rheumatoid arthritis, involving unspecified site, unspecified whether rheumatoid factor present (HRC) Alexis Valdez MD [facility] [address] [place] [address] Referral ID Status Reason Start Date Expiration Date V isits Requested Visits Authorized [id number] New Request 11/28/2022 02/27/2024 1 1 Scheduling Instructions Your clinician has recommended an appointment with Kirstie Castro. You may call [phone] for help scheduling your appointment. We suggest you call your health insurance company about your coverage and benefits for this appointment. Question Answer Appointment Urgency? Non-Urgent Encounter Details Date Type Department Care Team Description 11/28/2022 Notes/Orders [facility] [address] [facility] [facility] [place] [address] Alexis Valdez MD [facility] [address] [place] [address] Rheumatoid arthritis, involving unspecified site, unspecified whether rheumatoid factor present (HRC) Social History Tobacco Use Types Packs/Day Years Used Date Smoking Tobacco: Never Assessed Sex and Gender Information Value Date Recorded Sex Assigned at Not on file Gender Identity Not on file Sexual Orientation Not on file documented as of this encounter Plan of Treatment Upcoming Encounters Date Type Department Care Team Description 11/06/2023 12:00 PM CDT Appointment [facility] [address] [place] [address] Idris Torrez, DO [address] [place] [address] 01/17/2024 10:45 AM CDT Appointment [facility] [address] [place] [address] Idris Torrez, DO [address] [place] [address] Scheduled Referrals Name Type Priority Associated Diagnoses Orde r Schedule Rheumatology Consult-Adults Referral Routine Rheumatoid arthritis, involving unspecified site, unspecified whether rheumatoid factor present (HRC) Ordered: 11/28/2022 documented as of this encounter Visit Diagnoses Diagnosis Rheumatoid arthritis, involving unspecified site, unspecified whether rheumatoid factor present (HRC) documented in this encounter Care Teams Help Desk Analyst Relationship Specialty Start Date End Date Unassigned, Provider [address] [place] [address] PCP - General 04/01/00 04/09/23 documented as of this encounter
--- OUTSIDE RECORDS SUMMARY | 2023-08-02 10:05 | XMS_ITS | Encounter Summary ---
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 rheumatoid factor (HRC) longterm current use of systemic steroids Procedures [facility] [employer] Vert FX Assess Idris Torrez DO [address] [place] [address] Referral ID Status Reason Start Date Expiration Date V isits Requested Visits Authorized [id number] Incomplete 04/10/2023 07/09/2024 1 1 Reason for Visit * Reason Comments Follow-up Encounter Details Date Type Department Care Team Description 04/10/2023 10:15 AM CDT Office Visit [facility] [address] [place] [address] Idris Torrez DO [address] [place], [place] [id number] Rheumatoid arthritis of multiple sites with negative rheumatoid factor (HRC) (Primary Dx); 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 use; 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 We are following up on rheumatoid arthritis. I am glad to hear that your symptoms are improving on methotrexate. Continue methotrexate 6 tablets weekly. This is a total dose of 15 mg weekly. Take this once per week on Sundays as you are doing. Continue folic acid 1 mg daily We will get methotrexate safety labs today and at your follow up visit in 3 months. After your discontinuation of prednisone next week, watch for worsening joint swelling, pain, or stiffness. If these become severe, please let us know. Please also be aware that you could have some lightheadedness, dizziness, or nausea going off of prednisone and if that becomes the case, seek carewith your doctor. Schedule follow up in clinic in 3 months. We will get a DEXA scan that day as well. documented in this encounter Progress Notes * Idris Torrez DO - 04/10/2023 10:15 AM CDT Images from the original note were not included. RHEUMATOLOGY PROGRESS NOTE Patient: Joni Moncada Preferred Name: Joni Reason for visit: Seropositive rheumatoid arthritis follow up Other History: Diabetes (type 1.5), hypertension, hyperlipidemia, atrial fibrillation on anticoagulation with warfarin, history of gastric ulcer, nephrolithiasis, BPH, abdominal aortic aneurysm, LV hypertrophy, hearing loss, diverticulosis, COPD, monoclonal gammopathy (?MGUS), right eye vision loss, macular pigment epithelial tear, hyperuricemia Rheumatic Disease History: Seropositive rheumatoid arthritis (borderline +RF, high titer +CCP) - presented to Rheumatology in January 2023 small joint symmetric arthritis flares previously thought to be gout. Had positive RA serologies with PCP in October 2022. Was started on prednisone taper but after flare of joint symptoms in approximately December 2022, patient remained on prednisone 10 mg daily.Care complicated by diabetes and other comorbidities noted above. Rheumatologic Serologies: Positive: RF (16, reference range 0-14 IU/mL), CCP (184, reference range 0-19 units) Rheumatologic medications: - methotrexate (oral) 15 mg weekly - folic acid 1 mg daily - prednisone 2.5 mg daily (tapering) History of Present Illness: Joni presents to the Rheumatology Clinic today for 6 week follow up after initial visit for new diagnosis of seropositive rheumatoid arthritis. He is on oral methotrexate 15 mg weekly on Sundays. Tolerating this medication well and does not endorse any gastrointestinal upset or fatigue/flu-like symptoms with methotrexate. He is also on prednisone 2.5 mg daily which has been tapered down from prior higher doses and is planning to discontinue this next week approximately on 04/17. Even while tapering prednisone, he feels like his joint pain, swelling, and stiffness has improved. He is requiring less basal insulin and is currently taking 32 units of Lantus nightly. Does have some stiffness in his hands throughout the day, but does not have any significant morning stiffness. Feels like swelling in his right handHas improved to the point he can make a fist better. Uses topical Voltaren a couple of times per day. No other acute complaints or concerns at this time. Pain & RAPID3: In flowsheet if completed by patient. Pain 2.5; RAPID-3 = 5.2 OBJECTIVE Physical Examination: VS: BP 138/70 (BP Location: Right Arm, BP Cuff Size: Large) Pulse 90 Ht 5' 7 (1.702 m) Wt 212 lb 8 oz (96.4 kg) BMI 33.28 kg/m?? General: alert, oriented, no acute distress [...] edema noted Musculoskeletal: All four limbs examined. Mild swelling at right wrist. Otherwise no swelling, tenderness, warmth, or erythema at bilateral elbows, wrists, MCPs, PIPs, DIPs, knees, or ankles. Negative MTP squeeze bilaterally. Able to make a fist and flex fingers to palms bilaterally without difficulty. Laboratory Data: Reviewed recent relevant laboratory data: 03/06/2023: Basic metabolic panel with sodium 134, potassium 5.0, glucose 120, creatinine 1.20, EGFR greater than 60 02/28/2023: Basic metabolic panel with potassium 5.2, sodium 139, glucose 56, creatinine 1.44, EGFR 50 CBC with WBC count elevated at 14.1K (on steroids), hemoglobin 10.5 mg/dL, platelet count 524K, ANCelevated at 10,700, monocytes elevated at 1000. ESR elevated at 97 mm/hr CRP elevated at 1.1 mg/dL Hepatitis-B surface antigen, hepatitis-B surface antibody, hepatitis-B core antibody, and hepatitis-C antibody negative Hepatic panel within normal limits Radiographic Information: Reviewed recent relevant results XR Chest 2 Views Order: [id number] Status: Final result Visible to patient: Yes (not seen) Next appt: Today at 10:15 AM [facility] [facility] Dx: 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 use Details Reading Physician Reading Date Result Priority Viktor Martinez MD [phone] 02/28/2023 Routine Narrative & Impression IMPRESSION COMPARISON: None. FINDINGS: Chest 2 views. There is a single lead left chest pacemaker and changes of prior cardiac surgery. Heart size is upper normal. Pulmonary vasculature is within normal limits. Minimal left basilar atelectasis or scarring. The lungs are otherwise clear. There is no pneumothorax or pleural effusion. No acute bony abnormalities. Specimen Collected: 02/28/23 09:34 Last Resulted: 02/28/23 10:47 Microbiology: See above Pathology: N/A Assessment/Plan Joni Moncada is a pleasant 77 y.o. male who presented to the rheumatology department for seropositive rheumatoid arthritis. Joni was seen today for follow-up. Diagnoses and all orders for this visit: Rheumatoid arthritis of multiple sites with negative rheumatoid factor (HRC) - Albumin; Future - ALT (SGPT); Future - Creatinine / GFR; Future - CBC -W/Diff; Future - [facility] Vert FX Assess; Future 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 use - Albumin; Future - ALT (SGPT); Future - Creatinine / GFR; Future - CBC -W/Diff; Future longterm current use of systemic steroids - [facility] Vert FX Assess; Future Other orders - methotrexate 2.5 MG tablet; Take 6 Tablets (15 mg) by mouth once every week. - LANTUS SOLOSTAR 100 UNIT/ML pen; Taking 32 units nightly - Joni presents to the Rheumatology Clinic today for follow up of seropositive rheumatoid arthritis. Since initiating oral methotrexate 15 mg weekly at initial visit approximately 6 weeks ago, he reports that his symptoms have improved significantly with less joint pain, stiffness, and swelling.No morning stiffness. He is currently tapering prednisone and is down to 2.5 mg weekly and planningto stop this approximately 1 week from today. Even with tapering prednisone, reports joint symptomshave improved. RAPID3 score of 5.2 today indicating low disease activity. Has mild swelling at his right wrist, but otherwise no synovitis on exam today. - Given dramatic improvement with 15 mg of oral methotrexate weekly, we will plan to continue this dose for now. I discussed with him that often times patients need 20-25 mg of weekly methotrexate for disease control and we will see at his next visit if this is needed after discontinuing prednisone. Counseled him on symptoms to monitor for while discontinuing prednisone which would indicate RA disease worsening or adrenal insufficiency symptoms and to seek medical attention if these develop. Plan: -continue oral methotrexate 15 mg weekly -continue folic acid 1 mg daily -discontinue prednisone 2.5 mg daily on 04/17 as scheduled -update methotrexate monitoring labs (CBC, creatinine, ALT, albumin) today -DEXA scan at next visit (male age >70, long-term recent use of steroids, rheumatoid arthritis) Follow-up in 3 months with labs Idris Torrez DO 04/10/2023 10:45 AM This documentation was completed using M*Modal Fluency Direct Dictation Software which may contain typographical and word substitution errors. Please contact my office if clarification is needed. documented in this encounter Plan of Treatment Upcoming Encounters Date Type Department Care Team Description 11/06/2023 12:00 PM CDT Appointment [facility] [address] [place] [address] Idris Torrez DO [address] [place], [place] [id number] 01/17/2024 10:45 AM CDT Appointment [facility] [address] [place] [address] Idris Torrez DO [address] [place], [place] [address] Scheduled Orders Name Type Priority Associated Diagnoses Orde r Schedule [facility] Vert FX Assess Imaging New Routine Rheumatoid arthritis of multiple sites with negative rheumatoid factor (HRC) longterm current use of systemic steroids Expected: 04/10/2023 (Approximate), Expires: 04/09/2024 documented as of this encounter Results * (ABNORMAL) Creatinine / GFR (04/10/2023 10:59 AM CDT) Creatinine 1.30(H) 0.73 - 1.18 mg/dL 04/10/2023 12:40 PM CDT [facility] GFR, Estimated 56(L) >60 mL/min/1.7 3m2 04/10/2023 12:40 PM T [facility] Blood Venipuncture / Unknown 04/10/2023 10:59 AM CDT 04/10/2023 10:59 AM CDT Narrative [facility] - 04/10/2023 12:40 PM CDT The National Kidney Disease Education Program suggests measuring Cystatin C in patients with eGFRcrea of 45 to 59 ml/min/1.73^2 who do not have other markers of kidney damage (i.e. elevated urine Albumin/Creatinine Ratio or a prior Cystatin C confirming the presence of chronic kidney disease). Idris Brink Desilet DO LAB_1 Performing Organization Address [facility] Co de Phone Number [facility] [address] [place] [address], [facility] [phone] * ALT (SGPT) (04/10/2023 10:59 AM CDT) ALT (SGPT) 15 <=55 U/L 04/10/2023 12:40 PM CDT [facility] Blood Venipuncture / Unknown 04/10/2023 10:59 AM CDT 04/10/2023 10:59 AM CDT Idris Brink Desilet DO LAB_1 Performing Organization Address [facility] Co de Phone Number [facility] [address] [place] [address], [facility] [phone] * Albumin (04/10/2023 10:59 AM CDT) Albumin 3.5 3.5 - 5.0 g/dL 04/10/2023 12:40 PM CDT [facility] Blood Venipuncture / Unknown 04/10/2023 10:59 AM CDT 04/10/2023 10:59 AM CDT Idris Brink Desilet DO LAB_1 Performing Organization Address 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
--- OUTSIDE RECORDS SUMMARY | 2023-08-02 10:05 | XMS_ITS | Encounter Summary ---
Author Name Unknown Organization [facility] Address [address] [place] [address] Care Team Providers Care Nuclear Physics Teacher Name Role Phone Needs Pcp, Assignment Primary Care Provider Encounter Details Date Type Department Care Team Description 07/24/2023 3:40 PM [employer] Lab Visit [facility] [address] [place] [address] 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 use; Leukocytosis, unspecified type [...] Team Description 11/06/2023 12:00 PM CDT Appointment [facility] [address] [place] [address] Idris Torrez W, DO [address] [place], [place] [id number] 01/17/2024 10:45 AM CDT Appointment [facility] [address] [place] [address] Idris Torrez, DO [address] [place] [address] documented as of this encounter Procedures Procedure Name Priority Date/Time Associated Diagnosis Comments FLOW CYTOMETRY Routine 07/24/2023 3:34 PM [employer] Leukocytosis, unspecified type (HRC) CBC AND DIFFERENTIAL PANEL Routine 07/24/2023 3:34 PM [employer] 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 use FREE LIGHT CHAINS, SERUM Routine 07/24/2023 3:34 PM [employer] Leukocytosis, unspecified type (HRC) VITAMIN D 25-HYDROXY, TOTAL Routine 07/24/2023 3:34 PM [employer] 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 use CREATININE / GFR Routine 07/24/2023 3:34 PM [employer] 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 use COMPLETE BLOOD COUNT-W/DIFF Routine 07/24/2023 3:34 PM [employer] 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 use PROTEIN ELP (SERUM) Routine 07/24/2023 3 :34 PM [employer] Leukocytosis, unspecified type (HRC) IMMUNOFIXATION, SERUM (IMMUNO ELP) Routine 07/24/2023 3:34 PM [employer] Leukocytosis, unspecified type (HRC) ALT (SGPT) Routine 07/24/2023 3:34 PM [employer] 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 use CALCIUM Routine 07/24/2023 3:34 PM [employer] Leukocytosis, unspecified type (HRC) ALBUMIN Routine 07/24/2023 3:34 PM [employer] 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 use CBC AND SLIDES FOR FLOW SPEC Routine 07/24/2023 3:25 PM [employer] Leukocytosis, unspecified type (HRC) documented in this encounter Results * (ABNORMAL) Complete Blood Count-W/Diff (07/24/2023 3:34 PM [employer]) WBC 8.2 3.5 - 10.5 x10(9)/L 07/24/2023 3:37 PM [employer] [facility] RBC 3.55(L) 4.32 - 5.72 x10(12)/L 07/24/2023 3:37 PM [facility] Hemoglobin 10.0(L) 13.5 - 17.5 g/dL 07/24/2023 3:37 PM [facility] HCT 31.2(L) 38.8 - 50.0 % 07/24/2023 3:37 PM [facility] MCV 87.9 80.0 - 100.0 fL 07/24/2023 3:37 PM [facility] MCH 28.2 27.6 - 33.3 pg 07/24/2023 3:37 PM [facility] MCHC 32.1 31.5 - 35.2 g/dL 07/24/2023 3:37 PM [facility] RDW 16.7(H) 11.9 - 15.5 % 07/24/2023 3:37 PM [facility] Platelets 351 150 - 450 x10(9)/L 07/24/2023 3:37 PM [facility] Automated NRBC 0 <=0 /100 WBC 07/24/2023 3:37 PM [facility] Neutrophil Absolute 6.4 1.7 - 7.0 10(9)/L 07/24/2023 3:37 PM [facility] Lymphocyte Absolute 1.0 1.0 - 4.8 10(9)/L 07/24/2023 3:37 PM [facility] Monocyte Absolute 0.6 0.2 - 0.9 10(9)/L 07/24/2023 3:37 PM [facility] Eosinophil Absolute 0.3 0.0 - 0.5 10(9)/L 07/24/2023 3:37 PM [facility] Basophil Absolute 0.0 0.0 - 0.3 10(9)/L 07/24/2023 3:37 PM [facility] Immature Granulocyte % 0.2 0.0 - 0.5 % 07/24/2023 3:37 PM [facility] Blood Venipuncture / Unknown 07/24/2023 3:34 PM [employer] 07/24/2023 3:34 PM [facility] Idris Brink Desilet DO LAB_1 [facility] [address] [place] [address], [facility] [phone] * Vitamin D 25-Hydroxy, Total (07/24/2023 3:34 PM [employer]) [facility] Vitamin D, 25-OH, Total 47 30 - 80 ng/mL 07/24/2023 9:16 PM [employer] [facility] Blood Venipuncture / Unknown 07/24/2023 3:34 PM [employer] 07/24/2023 3:34 PM [employer] Luke W Desilet DO LAB_1 Performing Organization Address [facility]/ZIP Co de Phone Number [facility] [address] * Calcium (07/24/2023 3:34 PM [employer]) [facility] Calcium 10.1 8.4 - 10.4 mg/dL 07/24/2023 4:57 PM [employer] [facility] Blood Venipuncture / Unknown 07/24/2023 3:34 PM [employer] 07/24/2023 3:34 PM [employer] Luke W Desilet DO LAB_1 Performing Organization Address [facility] de Phone Number [facility] [address] [place] [address] [phone] * Flow Cytometry (07/24/2023 3:34 PM [employer]) [facility] Case Report Flow Cytometry ?Case: [id number] ? Authorizing Provider: ??Desilet, Luke W, DO ?Collected: ? 07/24/2023 1534 ? Ordering Location: ? [facility] ?Received: ?07/24/2023 1534 ? Pathologist: ? Gisele Thakkar MD ? Specimen: ?Blood, Venous ? 4 2:13 PM [facility] Flow Interpretation Peripheral blood, flow cytometric [...] of CD3 or CD5. 4 2:13 PM [facility] Flow Processing Information Received 3 ml of blood Cellularity: 7,766 cells per microliter Viability: 91.66 % Antibodies Performed: T cells: CD3, CD4, CD5, CD8 B cells: CD10, CD19, CD20, kappa, lambda Other: CD45 4 2:13 PM [facility] Clinical Information leukocytosis 4 2:13 PM [facility] ASR Disclaimer This test was developed and the performance characteristics were determined by [facility]. It has not been cleared or approved by the U.S. Food and Drug Administration. The FDA has determined that such clearance or approval is not necessary. By his/her signature, the pathologist listed as making the final diagnosis certifies that he/she has personally reviewed this case and confirmed or corrected the diagnosis. Technical Component performed at: [facility], [address] [place] [address] Professional Component performed at: [facility], [facility] [place] [address] 4 2:13 PM [employer] [facility] Embedded Images 4 2:13 PM [employer] [facility] Blood VENOUS BLOOD SPECIMEN / Unknown Venipuncture / Unknown 07/24/2023 3:34 PM [employer] 07/24/2023 3:34 PM [employer] Opalkaleo DO LAB PATHOLOGY Performing Organization Address City/[facility]/ZIP Co de Phone Number [facility] [address] [place] [address], [address] [address], [facility] [phone] * (ABNORMAL) Free Light Chains, Serum (07/24/2023 3:34 PM [employer]) [place] Free Light Chains 5.12(H) 0.33 - 1.94 mg/dL 07/25/2023 10:16 AM [employer] [email or web address] Lambda Free Light Chains 2.30 0.57 - 2.63 mg/dL 07/25/2023 10:16 AM [facility] [place]/Lambda Ratio 2.23(H) 0.26 - 1.65 07/25/2023 10:16 AM [facility] [place] Blood Venipuncture / Unknown 07/24/2023 3:34 PM [employer] 07/24/2023 3:34 PM [employer] Narrative [facility] - 07/25/2023 10:16 AM [employer] In the setting of renal disease, reference intervals for the FLC ratio are 0.46- 2.62, 0.48-3.38, and 0.54-3.30 for eGFR 45-59, 30-44, and < 30 mL/min/1.73 m2, respectively. Idris NextNine DO LAB_1 [facility] [address] [place] [address], [facility] [phone] * (ABNORMAL) Protein ELP (Serum) (07/24/2023 3:34 PM [employer]) [facility] Total Protein 7.1 6.4 - 8.3 g/dL 07/26/2023 1:07 PM [employer] [facility] Albumin 3.4 3.4 - 4.8 g/dL 07/26/2023 1:07 PM [facility] Alpha 1 0.4 0.2 - 0.5 g/dL 07/26/2023 1:07 PM [facility] Alpha 2 1.2(H) 0.5 - 1.1 g/dL 07/26/2023 1:07 PM [facility] Beta 1.1 0.6 - 1.1 g/dL 07/26/2023 1:07 PM [facility] Gamma 0.9 0.7 - 1.6 g/dL 07/26/2023 1:07 PM [facility] Monoclonal Jacky 0.0 <=0.0 g/dL 07/26/2023 1:07 PM [facility] Interpretation No monoclonal protein is detected in the serum. 07/26/2023 1:07 PM [facility] Signed Out By [facility] 07/26/2023 1:07 PM [facility] Blood Venipuncture / Unknown 07/24/2023 3:34 PM [employer] 07/24/2023 3:34 PM [employer] Luke W Desilet DO LAB_1 [facility] [address] [place] [address], [facility] [phone] * Immunofixation, Serum (Immuno ELP) (07/24/2023 3:34 PM [employer]) Pathologist [facility] Immunofixati on, Serum No monoclonal protein is detected. 07/26/2023 1:07 PM [facility] Signed Out By [facility] 07/26/2023 1:07 PM [employer] [facility] Blood Venipuncture / Unknown 07/24/2023 3:34 PM [employer] 07/24/2023 3:34 PM [employer] Idris Marcilet DO LAB_1 [facility] [address] [address] [phone] * (ABNORMAL) Creatinine / GFR (07/24/2023 3:34 PM [employer]) Creatinine 1.26(H) 0.73 - 1.18 mg/dL 07/24/2023 4:57 PM [employer] [facility] GFR, Estimated 58(L) >60 mL/min/1.7 3m2 07/24/2023 4:57 PM [employer] [facility] Blood Venipuncture / Unknown 07/24/2023 3:34 PM [employer] 07/24/2023 3:34 PM [employer] Narrative [facility] - 07/24/2023 4:57 PM [employer]ER The National Kidney Disease Education Program suggests measuring Cystatin C in patients with eGFRcrea of 45 to 59 ml/min/1.73^2 who do not have other markers of kidney damage (i.e. elevated urine Albumin/Creatinine Ratio or a prior Cystatin C confirming the presence of chronic kidney disease). Idris Marcilet DO LAB_1 [facility] [address] [place] [address], [facility] [phone] * ALT (SGPT) (07/24/2023 3:34 PM [employer]) ALT (SGPT) 14 <=55 U/L 07/24/2023 4:57 PM [employer] [facility] Blood Venipuncture / Unknown 07/24/2023 3:34 PM [employer]ER 07/24/2023 3:34 PM [employer] Idris Brink Desilet DO LAB_1 Performing Organization Address [facility] Co de Phone Number [facility] [address] [place] [address], [facility] [phone] * (ABNORMAL) Albumin (07/24/2023 3:34 PM [employer]) Albumin 3.4(L) 3.5 - 5.0 g/dL 07/24/2023 4:57 PM [employer] [facility] Blood Venipuncture / Unknown 07/24/2023 3:34 PM [employer] 07/24/2023 3:34 PM [employer] Idris Brink Desilet DO LAB_1 Performing Organization Address [facility] Co de Phone Number [facility] [address] [place] [address], [facility] [phone] * CBC with Diff for Flow (07/24/2023 3:25 PM [employer]ER) Blood VENOUS BLOOD SPECIMEN / Unknown 07/24/2023 3:25 PM [employer] 07/24/2023 3:25 PM [employer] Idris Brink Desilet DO LAB_1 Performing Organization Address [facility] Co de Phone Number [facility] [address] [place] [address], [facility] documented in this encounter Visit Diagnoses Diagnosis 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 use Encounter for long-term (current) use of other medications Leukocytosis, unspecified type (HRC) documented in this encounter Care Teams Nuclear Physics Teacher Relationship Specialty Start Date End Date Needs Pcp, [place] [address] PCP - General 04/10/23 documented as of this encounter
--- OUTSIDE RECORDS SUMMARY | 2023-08-02 10:05 | XMS_ITS | Encounter Summary ---
Author Name Unknown Organization [facility] Address [address] [place] [address] Care Team Providers Care Trade Mark Examiner Name Role Phone Unassigned, Provider Primary Care Provider Unava ilable Reason for Referral * Procedure/Equipment (Routine) - Incomplete Specialty Diagnoses / Procedures Referred By Emre walters Referred To Contact Diagnoses 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 use Procedures XR Chest 2 Views Idris Torrez DO [address] [place] [address] Referral ID Status Reason Start Date Expiration Date V isits Requested Visits Authorized [id number] Incomplete 02/28/2023 05/29/2024 1 1 Reason for Visit * Reason Comments CONSULT * Consult/Transfer Care (Routine) - New Request Specialty Diagnoses / Procedures Referred By Emre walters Referred To Contact Diagnoses Rheumatoid arthritis, involving unspecified site, unspecified whether rheumatoid factor present (HR) Alexis Valdez MD [facility] [address] [place] [address] Referral ID Status Reason Start Date Expiration Date V isits Requested Visits Authorized [id number] New Request 11/28/2022 02/27/2024 1 1 Encounter Details Date Type Department Care Team Description 02/28/2023 8:15 AM CDT Office Visit [place] [address] [place] [address]. [place], [place] [address] Idris Torrez DO [address] [place], [place] [id number] Rheumatoid arthritis, involving unspecified site, unspecified whether rheumatoid factor present (HRC) (Primary Dx); 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 use; Hyperuricemia Social History Tobacco Use Types Packs/Day Years Used Date Smoking Tobacco: Former Cigarettes 12 Tobacco Cessation:Counseling Given: Not Answered Alcohol Use [...] Sign Reading Time Taken Comments Blood Pressure 120/69 02/28/2023 8:13 AM CDT Pulse 72 02/28/2023 8:13 AM CDT Temperature - - Respiratory Rate - - Oxygen Saturation - - Inhaled Oxygen Concentration - - Weight 94.3 kg (208 lb) 02/28/2023 8:13 AM CDT Height 167 cm (5' 5.75) 02/28/2023 8:13 AM CDT Body Mass Index 33.83 02/28/2023 8:13 AM CDT documented in this encounter Patient Instructions * Patient Instructions* Idris Torrez, DO - 02/28/2023 8:15 AM CDT We saw you in the rheumatology clinic today for your hand and wrist swelling. Your labs and clinical history are consistent with rheumatoid arthritis. We will get some screening labs for hepatitis, liver, and kidney function and a chest x-ray before starting therapy. We will start methotrexate 6 tablets once per week. This is a total dose of 15 mg of methotrexate once per week. Also start folic acid 1 mg daily. I have sent in a new prescription for prednisone as a taper. You will take 5 mg daily for 3 weeks, then 2.5 mg daily for 3 weeks, then stop. We will follow up with you in clinic in approximately 6 weeks with labs at that visit. We will communicate results to you by online portal or over the phone before that time. Methotrexate Purpose Methotrexate is one of the most commonly used DMARDs (disease-modifying anti- rheumatic drugs). It is used to treat rheumatoid arthritis, myositis, lupus, psoriatic arthritis, other forms of inflammatory arthritis, and vasculitis including giant cell arteritis. Methorexate has anti-inflammatory effects and modulates the immune system. Dose Generic methotrexate comes in 2.5 mg tablets, as well as a liquid that can be given as a shot underthe skin or taken with juice by mouth. The usual dose of methotrexate is 10 - 25 mg once weekly. For example, if you are taking 15 mg per week, that would be 6 tablets per week. The tablets are takenall on one day. They can be taken together all at once or spread out over the day. Your doctor willprobably start you on a low dose of methotrexate initially and increase the dose at intervals depending on your condition and response. It is very important to follow dosing instructions carefully. The liquid form of methotrexate is available at a concentration of 25 mg/mL. It is yellow in color.The liquid form can be useful for patients who can???t absorb methotrexate orally or have gastrointestinal side effects like nausea. If you are taking methotrexate liquid subcutaneously, each 0.1 mL equals 2.5 mg. For example, 0.8 mL equals 20 mg of methotrexate. If you are prescribed the methotrexate liquid, you will also be prescribed 1 mL syringes to draw up the appropriate amount. Sites for subcutaneous injection can include the abdomen, the thighs, and the shoulder. An area of skin is pinched and entered at a 45- degree angle quickly and then injected. Generally, there is minimal discomfort with this. A vitamin called folic acid is often prescribed at 1 mg per day, and this helps prevent or lessen many side effects of methotrexate. Patients who are on 15 mg of methotrexate per week or less may notneed supplemental folic acid, especially of they take a multivitamin (which contains folic acid). Folic acid is now added to many foods including bread, so the necessity for prescription dose suppleme nts is now less than in than in the past. Potential side effects In general, methotrexate is very well tolerated, but there are potential side effects that you should be familiar with. Pregnacy should be avoided while on methotrexate and should not be attempted until you have been off the drug for several months, because of the risk of defects. Adequate control methods are recommended. Men should be off methotrexate for about 3 months prior to attempting to conceive. Most people tolerate methotrexate very well, often without any noticeable adverse effects. Potential side effects may include fatigue (tiredness), flu- like symptoms, upset stomach, headaches, mouth sores, elevated liver blood tests, lowering of the red cell (anemia) or white cell (infection fighting) counts, and potentially increased risk of infections. There is an increased risk for liver and blood problems if you do not take folic acid, if you are overweight, have diabetes, have kidney problems or liver problems. It is recommended that the use of alcohol be minimized while on methotrexate. An occasional glass of wine/beer is probably acceptable, but heavy use of alcohol has been associated with cirrhosis when used with methotrexate. There is a very small risk of cirrhosis from methotrexate, even when not used with alcohol. Another extremely rare complication of methotrexate is a type of pneumonia, not caused by an infection, but as a reaction to the methotrexate. For this reason, if you develop a cough or fever, the methotrexate should be held until the cough/fever subsides. If the cough returns whenever you start the methotrexate, the problem could be from methotrexate and your wire wheeler should be notified. However, most patients develop a cough once or twice a year from viral infections, and this is usually not due to methotrexate. Methotrexate can sometimes cause a rash with lots of sun exposure. Therefore, wear sunscreen if you???re going to be getting a lot of sun exposure. Expected Effects Methotrexate generally begins to take effect after 4 weeks, reaching maximum effect after 3-5 months. Not everyone responds to methotrexate optimally, and your doctor may discuss adding other medications if necessary. Because it is a slow acting medicine, holding the dose for a week or two if you have an infection or require surgery, does not usually result in a flare of symptoms. Only if the medicine is held for several weeks, do symptoms usually start to recur. Monitoring Before starting methotrexate, you will need to have a baseline complete blood count (CBC) and livertest (ALT or AST). After starting methotrexate, these labs are repeated to make sure your body is tolerating the medicine. Thereafter, the blood tests are checked every 2-3 months. Abnormal labs may necessitate dose adjustments and/or more frequent lab tests. If you go for many months with no abnormal labs, sometimes the interval for labs can be extended to every 3-4 months. If multiple abnormal liver tests occur, liver biopsy might be required, but this is very uncommon. Special Instructions If you have any infection more serious than a cold or bladder infection, it is a good idea to hold methotrexate for a week or two until you???re better. Also, it is fairly standard to hold methotrexate the week before and the week of a significant surgery. documented in this encounter Progress Notes * Idris Torrez DO - 02/28/2023 8:15 AM CDT RHEUMATOLOGY CONSULT NOTE Patient: Joni Moncada Preferred Name: Joni Referring Provider: Alexis Valdez Consult Question: Joni Moncada is a 77 y.o. male on whom rheumatology was consulted for suspected rheumatoid arthritis. SUBJECTIVE History of Present Illness Joni is a 77-year-old male with a past medical history significant for diabetes (type 1.5), hypertension, hyperlipidemia, atrial fibrillation on anticoagulation with warfarin, history of gastric ulcer, nephrolithiasis, BPH, abdominal aortic aneurysm, LV hypertrophy, hearing loss, diverticulosis,COPD, monoclonal gammopathy (?MGUS), right eye vision loss, macular pigment epithelial tear who presents to the Rheumatology Clinic today for suspected rheumatoid arthritis. Per review of outside records, patient presented to his primary care office (Dr. Alexis Valdez [place], [place]) on 11/21/2022 for concerns for suspected gout in his right hand. Had been seen approximately 1 month prior in urgent care for this same issue. Prior uric acid was reportedly 7.7. PCP noted diffuse soft tissue swelling, slightly increased warmth at the right wrist and ordered RF, CCP, CRP, Lyme titer, and repeat uric acid. He was given oral 10 day prednisone taper. Labs were notable for slightly elevated rheumatoid factor (16, reference range 0-14 IU/mL and high titer positive CCP (184,reference range 0-19 units). Today, patient is accompanied by his and reiterates history as noted above with acute onset right wrist and hand swelling starting in approximately August/September of 2022. He said this started fairly abruptly and states that swelling had been all the way distal into his MCP joints. He had difficulty making a fist when this started. He felt more return of joint pain and stiffness after stopping temporary steroid taper so in the last month approximately he has been on prednisone 10 mg daily. This has caused issues with hyperglycemia and he has required more basal insulin with Lantus increased to 72 units nightly. He says that his morning blood sugars are approximally in the 130s. Stillhas some joint pain and swelling which is reportedly worse in the evenings but does endorse some stiffness in the mornings. He is taking as needed Tylenol and ibuprofen for pain. Has swelling in his right wrist and right MCP joints. No issues in his left upper extremity or other joints of his body.No known personal history of gout flares or podagra. Was noted to have hyperuricemia at his PCP. Has family history of gout in his father. Review of systems negative for sicca and Raynaud's. Has had several recent issues with coronary artery bypass approximately 1.5 years ago and pacemaker placement 2 years ago. History Medical - see HPI above Surgical - TURP, ligation of left atrial appendage, four-vessel CABG, lipoma excision, cataract extraction, cardiac pacemaker placement Family - sister with rheumatoid arthritis, father with gout, son with type 1 diabetes mellitus Social history - former smoker (ages 20-32), infrequent alcohol use (less than once per month), retired, used to work in sales designer, lives in [place], [place]. Prior service in the [employer]. Travels to see children/grandchildren frequently. Allergies / Adverse Drug Reactions: Allergies Allergen Reactions Cephalosporins Hives Medications: Reviewed in the chart PAIN & RAPID3: In flowsheet if completed by patient. Pain = 5; RAPID-3 = 8.7 Review of Systems: As noted in the HPI above. If the patient completed the Comprehensive Review of Systems Form beforethe visit it was reviewed with the patient and placed into SDOC OBJECTIVE Physical Examination: VS: BP 120/69 (BP Location: Right Arm, BP Cuff Size: Regular) Pulse 72 Ht 5' 5.75 (1.67 m) Wt 208 lb (94.3 kg) BMI 33.83 kg/m?? General: alert, oriented, no acute distress [...] edema noted Musculoskeletal: All four limbs examined. Synovitis with tenderness and swelling at right wrist andswelling at right 2nd and 3rd MCP and PIP knees. Some impaired mobility of the right wrist. No other synovitis in upper or lower extremities on exam. Laboratory Data: Reviewed outside lab data: 09/22/2022: Complete metabolic panel with slightly elevated CO2 at 33. Creatinine 1.2 with EGFR of 62. Liver enzymes within acceptable limits. 24 hour urine collection negative for monoclonal free light chains. Urinary kappa and lambda light chains undetected. 10/21/2022: CBC with hemoglobin low at 10.9, hematocrit low at 33.4, neutrophil count slightly elevated at 74.3% and lymphocyte percentage slightly low at 12.2 % 11/21/2022: Rheumatoid factor elevated at 16 (reference range 0-14 IU/mL) CCP antibody, IgG elevated at 184 U (reference range 0-19 U) Uric acid 7.7 mg/dL (reference range 2.2 VIII 0.4 mg/dL) Radiographic Information: 10/21/2022: Right wrist x-ray radiology impression with soft tissue swelling, no fracture, degenerative changes Microbiology: No recent available relevant results Pathology: No recent available relevant results ASSESSMENT/PLAN Joni Moncada is a pleasant 77 y.o. male who presented to the rheumatology department for suspected rheumatoid arthritis. 1. Rheumatoid arthritis, involving unspecified site, unspecified whether rheumatoid factor present (HRC) - ESR; Future - C-Reactive Protein; Future 2. 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 use - CBC -W/Diff; Future - Comp Metabolic Panel; Future - Hepatitis B Core Antibody; Future - Hepatitis B Surface Antibody; Future - Hepatitis B Surface Antigen; Future - Hepatitis C Antibody, with Reflex; Future - XR Chest 2 Views; Future 3. Hyperuricemia - Joni is a pleasant 77-year-old male with a past medical history as noted above who presents tothe Rheumatology Clinic today with approximately 5 months of ongoing right wrist, MCP, and PIP swelling, pain, and stiffness. Saw PCP in October 2022 and had low titer positive rheumatoid factor and hightiter positive CCP. Has been given short course of prednisone which helped improve symptoms and recently restarted prednisone 10 mg daily approximately 1 month ago. This has caused significant increase in his basal insulin requirements for diabetes though reports morning blood sugars are relativelywell controlled in the 130s now. - He has rather unilateral swelling at his right wrist, MCPs, and PIPs and does have some synovitison exam today at the right wrist, right 2/3 MCP, and right 2/3 PIP. RAPID3 score of 8.7 indicating moderate disease activity. Given ongoing inflammatory arthritis, involvement of multiple medium/small joints, and high titer positive CCP, his presentation is consistent with rheumatoid arthritis. - While he has had hyperuricemia, he has not had persistent history of gout flares as this is his only episode of inflammatory arthritis and has alternate explanation given seropositive rheumatoid arthritis. Will plan to address rheumatoid arthritis and monitor for gout flares at follow up. - Had extensive discussion regarding etiology and management of rheumatoid arthritis today. I am most concerned about his recent ongoing steroid use and need for significant increase in basal insulinin addition to nursing home steroid effects upon his other comorbidities (CAD, HTN, HLD). Discussed initiating DMARD therapy with methotrexate and initiating taper of prednisone while starting methotrexate. Discussed need to slowly taper prednisone and discussed with patient and signs/symptoms ofsteroid withdrawal/adrenal insufficiency to monitor for and seek medical attention for. - After discussion, we elected to start methotrexate. Risks, benefits, and side effects were reviewed including nausea, GI upset, hair thinning. We discussed the need to limit alcohol and avoid and the benefits of folic acid supplementation to lessen potential side effects. We also discussed laboratory monitoring of blood counts and liver function approximately quarterly on this medication. The need to consider holding this medication during any infection beyond a simple cold or UTI was emphasized. The patient will be started on 15 mg weekly. Recommendations: - Update CBC, CMP, ESR, CRP, hepatitis B and C viral serologies, and chest x-ray today for RA disease monitoring and pretreatment screening for methotrexate use - Start oral methotrexate 15 mg weekly - Start folic acid 1 mg daily - Prednisone taper as follows: 5 mg daily x3 weeks, then 2.5 mg daily x3 weeks, then stop - Briefly discussed bone health, we will plan to order DEXA at follow-up. Encouraged calcium intakeand diet. - Follow up in rheumatology clinic in 6 weeks for repeat labs and methotrexate titration Idris Torrez DO 02/28/2023 10:24 AM This documentation was completed using [employer]ictation Software which may contain typographical and word substitution errors. Please contact my office if clarification is needed. CC: Alexis Valdez documented in this encounter Plan of Treatment Upcoming Encounters Date Type Department Care Team Description 11/06/2023 12:00 PM CDT Appointment [facility] [address] [place] [address] Desilet, Luke W, DO [address] [place] [address] 01/17/2024 10:45 AM CDT Appointment [facility] [address] [place] [address] Desilet, Luke W, DO [address] [place], [place] [address] documented as of this encounter Results * Hepatitis C Antibody, with Reflex (02/28/2023 9:50 AM CDT) Hepatitis C Antibody Negative (Non Reactive) Negative (Non Reactive) 02/28/2023 2:22 PM CDT [facility] Comment:Antibodies to HCV no t detected. Does not exclude the possiblity of exposure to HCV. Blood Venipuncture / Unknown 02/28/2023 9:50 AM CDT 02/28/2023 9:50 AM CDT Luke W Desilet DO LAB_1 Performing Organization Address [facility] Co de Phone Number [facility] [address] [place], [place] [address] * Hepatitis B Surface Antigen (02/28/2023 9:50 AM CDT) Hepatitis B Surface Antigen Negative (Non Reactive) Negative (Non Reactive) 02/28/2023 2:49 PM CDT [facility] Blood Venipuncture / Unknown 02/28/2023 9:50 AM CDT 02/28/2023 9:50 AM CDT Luke W Desilet DO LAB_1 [facility] [address] [facility] [place] [address], [place] * Hepatitis B Surface Antibody (02/28/2023 9:50 AM CDT) Hep B Surf Antibody Result <2.0 mIU/mL 02/28/2023 3:22 PM CDT [facility] Hep B Surf Antibody Interpretation Negative (Non Reactive) Positive (Reactive) 02/28/2023 3:22 PM CDT [facility] Blood Venipuncture / Unknown 02/28/2023 9:50 AM CDT 02/28/2023 9:50 AM CDT Narrative [facility] - 02/28/2023 3:22 PM CDT Individual is considered not immune to HBV infection. [employer] W Desilet DO LAB_1 Performing Organization Address [facility] Co de Phone Number [facility] [address] [place] [address] * Hepatitis B Core Antibody (02/28/2023 9:50 AM CDT) Pathologist [facility] Hepatitis B Core Antibody Negative (Non Reactive) Negative (Non Reactive) 02/28/2023 3:22 PM CDT [facility] Blood Venipuncture / Unknown 02/28/2023 9:50 AM CDT 02/28/2023 9:50 AM CDT [employer] W Desilet DO LAB_1 Performing Organization Address City/[facility]/ZIP Co de Phone Number [facility] [address] [place] [address] * (ABNORMAL) C-Reactive Protein (02/28/2023 9:50 AM CDT) Pathologist [facility] C-Reactive Protein 1.1(H) 0.0 - 0.5 mg/dL 02/28/2023 11:05 AM CDT [place] [address] [facility]ORY Blood Venipuncture / Unknown 02/28/2023 9:50 AM CDT 02/28/2023 9:50 AM CDT Luke W Desilet DO LAB_1 Performing Organization Address [facility] de Phone Number [place] [address] [facility] [address] [place] [address], [facility] [phone] * (ABNORMAL) ESR (02/28/2023 9:50 AM CDT) Sedimentation Rate 97(H) 0 - 15 mm/hr 02/28/2023 10:56 AM T [place] [address] [facility] Blood Venipuncture / Unknown 02/28/2023 9:50 AM CDT 02/28/2023 9:50 AM CDT Idris Brink Shelby.tvilet DO LAB_1 Performing Organization Address [facility] de Phone Number [place] [address] [facility] [address] [place] [address], [facility] [phone] * (ABNORMAL) Comp Metabolic Panel (02/28/2023 9:50 AM CDT) [facility] Sodium 139 136 - 145 mmol/L 02/28/2023 11:05 AM [place] [address] [facility] Potassium 5.2(H) 3.5 - 5.1 mmol/L 02/28/2023 11:05 AM [place] [address] [facility] Chloride 103 98 - 109 mmol/L 02/28/2023 11:05 AM [place] [address] [facility] CO2 25 20 - 29 mmol/L 02/28/2023 11:05 AM [place] [address] [facility] Anion Gap 11 7 - 16 mmol/L 02/28/2023 11:05 AM [place] [address] [facility] Calcium 9.9 8.4 - 10.4 mg/dL 02/28/2023 11:05 AM [place] [address] [facility] BUN 39(H) 7 - 26 mg/dL 02/28/2023 11:05 AM [place] [address] [facility] Creatinine 1.44(H) 0.73 - 1.18 mg/dL 02/28/2023 11:05 AM [place] [address] [facility] Alkaline Phosphatase 57 40 - 150 U/L 02/28/2023 11:05 AM [place] [address] [facility] AST (SGOT) 13 10 - 40 U/L 02/28/2023 11:05 AM [place] [address] [facility] ALT (SGPT) 21 <=55 U/L 02/28/2023 11:05 AM [place] [address] [facility] Bilirubin, Total 0.3 0.2 - 1.2 mg/dL 02/28/2023 11:05 AM [place] [address] [facility] Protein, Total 7.7 6.4 - 8.3 g/dL 02/28/2023 11:05 AM [place] [address] [facility] Albumin 3.2(L) 3.5 - 5.0 g/dL 02/28/2023 11:05 AM [place] [address] [facility] Glucose 56(L) 70 - 100 mg/dL 02/28/2023 11:05 AM [place] [address] [facility] Comment:The given reference range is for the fasting state. Non-fasting reference range for glucose is 70 - 180 mg/dL. GFR, Estimated 50(L) >60 mL/min/1.7 3m2 02/28/2023 11:05 AM [place] [address] [facility] Hours Fasting 3.0 8 - 12 Hours 02/28/2023 11:05 AM [place] [address] [facility] Blood Venipuncture / Unknown 02/28/2023 9:50 AM T 02/28/2023 9:50 AM [place] [address] [facility] - 02/28/2023 11:05 AM [facility] The National Kidney Disease Education Program suggests measuring Cystatin C in patients with eGFRcrea of 45 to 59 ml/min/1.73^2 who do not have other markers of kidney damage (i.e. elevated urine Albumin/Creatinine Ratio or a prior Cystatin C confirming the presence of chronic kidney disease). Idris Torrez DO LAB_[address] [address], [facility] [phone] * XR Chest 2 Views (02/28/2023 9:35 AM CDT) Anatomical Region Laterality Modality Chest, Lung Digital Radiogra phy 02/28/2023 9:34 AM CDT Impressions 02/28/2023 10:47 AM CDT COMPARISON: ??None. FINDINGS: Chest 2 views. There is a single lead left chest pacemaker and changes of prior cardiac surgery. Heart size is upper normal. Pulmonary vasculature is within normal limits. Minimal left basilar atelectasis or scarring. The lungs are otherwise clear. There is no pneumothorax or pleural effusion. No acute bony abnormalities. Narrative Procedure Note Viktor Martinez MD - 02/28/2023 IMPRESSION COMPARISON: None. FINDINGS: Chest 2 views. There is a single lead left chest pacemaker andchanges of prior cardiac surgery. Heart size is upper normal. Pulmonaryvasculature is within normal limits. Minimal left basilar atelectasis orscarring. The lungs are otherwise clear. There is no pneumothorax orpleural effusion. No acute bony abnormalities. Luke W Desilet DO RAD GD documented in this encounter Visit Diagnoses Diagnosis Rheumatoid arthritis, involving unspecified site, unspecified whether rheumatoid factor present (HRC)- Primary 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 use Encounter for long-term (current) use of other medications Hyperuricemia Other abnormal blood chemistry 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 use Encounter for long-term (current) use of other medications documented in this encounter Care Teams Trade Mark Examiner Relationship Specialty Start Date End Date Unassigned, Provider [address] [place] [address] PCP - General 04/01/00 04/09/23 documented as of this encounter
--- OUTSIDE RECORDS SUMMARY | 2023-08-02 10:05 | XMS_ITS | Encounter Summary ---
Author Name Unknown Organization [facility] Address [address] [place] [address] Care Team Providers Care Director Of Enterprise Strategy Name Role Phone Needs Pcp, Assignment Primary Care Provider Encounter Details Date Type Department Care Team Description 04/10/2023 11:00 AM CDT Lab Visit [facility] [address] [place] [address] Rheumatoid arthritis of multiple sites with negative rheumatoid factor (HRC); 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 use Social History Tobacco Use Types Packs/Day Years [...] Team Description 11/06/2023 12:00 PM CDT Appointment [facility] [address] [place] [address] Idris Torrez W, DO [address] [place] [address] 01/17/2024 10:45 AM CDT Appointment [facility] [address] [place] [address] Idris Torrez, DO [address] [place] [address] documented as of this encounter Procedures Procedure Name Priority Date/Time Associated Diagnosis Comments CBC AND DIFFERENTIAL PANEL Routine 04/10/2023 10:59 AM CDT Rheumatoid arthritis of multiple sites with negative rheumatoid factor (HRC) 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 use CREATININE / GFR Routine 04/10/2023 10:5 9 AM CDT Rheumatoid arthritis of multiple sites with negative rheumatoid factor (HRC) 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 use COMPLETE BLOOD COUNT-W/DIFF Routine 04/10/2023 10:59 AM CDT Rheumatoid arthritis of multiple sites with negative rheumatoid factor (HRC) 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 use ALT (SGPT) Routine 04/10/2023 10:59 AM CDT Rheumatoid arthritis of multiple sites with negative rheumatoid factor (HRC) 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 use ALBUMIN Routine 04/10/2023 10:59 AM CDT Rheumatoid arthritis of multiple sites with negative rheumatoid factor (HRC) 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 use documented in this encounter Results * (ABNORMAL) Complete Blood Count-W/Diff (04/10/2023 10:59 AM CDT) [facility] Signature WBC 16.2(H) 3.5 - 10.5 x10(9)/L 04/10/2023 11:11 AM CDT [facility] RBC 3.56(L) 4.32 - 5.72 x10(12)/L 04/10/2023 11:11 AM T [facility] Hemoglobin 10.7(L) 13.5 - 17.5 g/dL 04/10/2023 11:11 AM CDT [facility] HCT 34.8(L) 38.8 - 50.0 % 04/10/2023 11:11 AM T [facility] MCV 97.8 80.0 - 100.0 fL 04/10/2023 11:11 AM CDT [facility] MCH 30.1 27.6 - 33.3 pg 04/10/2023 11:11 AM CDT [facility] MCHC 30.7(L) 31.5 - 35.2 g/dL 04/10/2023 11:11 AM CDT [facility] RDW 19.1(H) 11.9 - 15.5 % 04/10/2023 11:11 AM [facility] Platelets 336 150 - 450 x10(9)/L 04/10/2023 11:11 AM [facility] Automated NRBC 0 <=0 /100 WBC 04/10/2023 11:11 AM [facility] Neutrophil Absolute 13.0(H) 1.7 - 7.0 10(9)/L 04/10/2023 11:11 AM [facility] Lymphocyte Absolute 1.3 1.0 - 4.8 10(9)/L 04/10/2023 11:11 AM [facility] Monocyte Absolute 1.1(H) 0.2 - 0.9 10(9)/L 04/10/2023 11:11 AM [facility] Eosinophil Absolute 0.3 0.0 - 0.5 10(9)/L 04/10/2023 11:11 AM [facility] Basophil Absolute 0.1 0.0 - 0.3 10(9)/L 04/10/2023 11:11 AM [facility] Immature Granulocyte % 2.3(H) 0.0 - 0.5 % 04/10/2023 11:11 AM [facility] Blood Venipuncture / Unknown 04/10/2023 10:59 AM CDT 04/10/2023 10:59 AM CDT Luke W Desilet DO LAB_1 Performing Organization Address City/State/[facility] Co de Phone Number [facility] [address] [place] [address] [phone] * (ABNORMAL) Creatinine / GFR (04/10/2023 10:59 AM CDT) Creatinine 1.30(H) 0.73 - 1.18 mg/dL 04/10/2023 12:40 PM T [facility] GFR, Estimated 56(L) >60 mL/min/1.7 3m2 04/10/2023 12:40 PM [facility] Blood Venipuncture / Unknown 04/10/2023 10:59 AM CDT 04/10/2023 10:59 AM CDT Narrative [facility] - 04/10/2023 12:40 PM CDT The National Kidney Disease Education Program suggests measuring Cystatin C in patients with eGFRcrea of 45 to 59 ml/min/1.73^2 who do not have other markers of kidney damage (i.e. elevated urine Albumin/Creatinine Ratio or a prior Cystatin C confirming the presence of chronic kidney disease). Idris Brink Desilet DO LAB_1 Performing Organization Address [facility] Co de Phone Number [facility] [address] [place] [phone], [facility] [phone] * ALT (SGPT) (04/10/2023 10:59 AM CDT) ALT (SGPT) 15 <=55 U/L 04/10/2023 12:40 PM CDT [facility] Blood Venipuncture / Unknown 04/10/2023 10:59 AM CDT 04/10/2023 10:59 AM CDT Idris Brink Desilet DO LAB_1 Performing Organization Address [facility] de Phone Number [facility] [address] [place] [address], [facility] [phone] * Albumin (04/10/2023 10:59 AM CDT) Albumin 3.5 3.5 - 5.0 g/dL 04/10/2023 12:40 PM CDT [facility] Blood Venipuncture / Unknown 04/10/2023 10:59 AM CDT 04/10/2023 10:59 AM CDT Idris Brink Desilet DO LAB_1 Performing Organization Address [facility] Co de Phone Number [facility] [address] [place] [address], [facility] [phone] documented in this encounter Visit Diagnoses Diagnosis Rheumatoid arthritis of multiple sites with negative rheumatoid factor (HRC) 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 use Encounter for long-term (current) use of other medications documented in this encounter Care Teams Director Of Enterprise Strategy Relationship Specialty Start Date End Date Needs Pcp, [place] [address] PCP - General 04/10/23 documented as of this encounter
--- OUTSIDE RECORDS SUMMARY | 2023-08-02 10:05 | XMS_ITS | Encounter Summary ---
Author Name Unknown Organization [facility] Address [address], [place] [address] Care Team Providers Care Tool Maintenance Worker Name Role Phone Unassigned, Provider Primary Care Provider Unava ilable Encounter Details Date Type Department Care Team Description 03/06/2023 4:20 PM CDT Lab Visit [facility] [address] [place] [phone] Elevated serum creatinine; Serum potassium elevated Social History Tobacco Use Types Packs/Day Years [...] Team Description 11/06/2023 12:00 PM CDT Appointment [facility] [address] [place] [address] DesiletIdris W, DO [address] [place] [address] 01/17/2024 10:45 AM CDT Appointment [facility] [address] [place] [address] DesiletOpalke W, DO [address] [place] [address] documented as of this encounter Procedures Procedure Name Priority Date/Time Associated Diagnosis Comments BASIC METABOLIC PANEL Routine 03/06/2023 4:24 PM CDT Elevated serum creatinine Serum potassium elevated documented in this encounter Results * (ABNORMAL) Basic Metabolic Panel (03/06/2023 4:24 PM CDT) Sodium 134(L) 136 - 145 mmol/L 03/07/2023 4:47 PM T [facility] Potassium 5.0 3.5 - 5.1 mmol/L 03/07/2023 4:47 PM T [facility] Chloride 99 98 - 109 mmol/L 03/07/2023 4:47 PM T [facility] CO2 22 20 - 29 mmol/L 03/07/2023 4:47 PM [facility] Anion Gap 13 7 - 16 mmol/L 03/07/2023 4:47 PM [facility] Calcium 9.7 8.4 - 10.4 mg/dL 03/07/2023 4:47 PM [facility] BUN 39(H) 7 - 26 mg/dL 03/07/2023 4:47 PM T [facility] Creatinine 1.20(H) 0.73 - 1.18 mg/dL 03/07/2023 4:47 PM T [facility] Glucose 120(H) 70 - 100 mg/dL 03/07/2023 4:47 PM [facility] Comment:The given reference range is for the fasting state. Non-fasting reference range for glucose is 70 - 180 mg/dL. GFR, Estimated >60 >60 mL/min/1.7 3m2 03/07/2023 4:47 PM [facility] Hours Fasting 8.0 8 - 12 Hours 03/07/2023 4:47 PM [facility] Blood Venipuncture / Unknown 03/06/2023 4:24 PM CDT 03/06/2023 4:32 PM CDT Idris Brink Desilet DO LAB_1 [facility] [address] [place] [address], [facility] [phone] documented in this encounter Visit Diagnoses Diagnosis Elevated serum creatinine Other nonspecific findings on examination of blood Serum potassium elevated Hyperpotassemia documented in this encounter Care Teams Tool Maintenance Worker Relationship Specialty Start Date End Date Unassigned, Provider [address] [place] [address] PCP - General 04/01/00 04/09/23 documented as of this encounter
--- OUTSIDE RECORDS SUMMARY | 2023-08-02 10:05 | XMS_ITS | Encounter Summary ---
Author Name Unknown Organization [facility] Address [address], [place] [address] Care Team Providers Care After School Tutor Name Role Phone Unassigned, Provider Primary Care Provider Unava ilable Reason for Visit * Procedure/Equipment (Routine) - Incomplete Specialty Diagnoses / Procedures Referred By Emre walters Referred To Contact Diagnoses 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 use Procedures XR Chest 2 Views Desilet, Idris W, DO [address] [place] [address] Referral ID Status Reason Start Date Expiration Date V isits Requested Visits Authorized [id number] Incomplete 02/28/2023 05/29/2024 1 1 Encounter Details Date Type Department Care Team Description 02/28/2023 9:25 AM CDT Ancillary Procedure [place] [address] [facility] [place], [place] [address] Desilet, Opalke W, DO [address] [place], [place] [address] 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 use Social History Tobacco [...] Team Description 11/06/2023 12:00 PM CDT Appointment [facility] [address] [place], [place] [address] Desilet, Luke W, DO [address] [place] [address] 01/17/2024 10:45 AM CDT Appointment [facility] [address] [place] [address] DesiletIdris DO [address] [place], [place] [phone] documented as of this encounter Procedures Procedure Name Priority Date/Time Associated Diagnosis Comments XR CHEST 2 VIEWS Routine 02/28/2023 9:35 AM CDT 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 use documented in this encounter Results * XR Chest 2 Views (02/28/2023 9:35 [...] No acute bony abnormalities. Narrative Procedure Note Vkitor Martinez MD - 02/28/2023 IMPRESSION COMPARISON: None. FINDINGS: Chest 2 views. There is a single lead left chest pacemaker andchanges of prior cardiac surgery. Heart size is upper normal. Pulmonaryvasculature is within normal limits. Minimal left basilar atelectasis orscarring. The lungs are otherwise clear. There is no pneumothorax orpleural effusion. No acute bony abnormalities. Idris Cuba Desilet DO RAD GD documented in this encounter Visit Diagnoses Diagnosis 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 use Encounter for long-term (current) use of other medications documented in this encounter Care Teams After School Tutor Relationship Specialty Start Date End Date Unassigned, Provider [address] [place] [address] PCP - General 04/01/00 04/09/23 documented as of this encounter
[2023-08-02 10:40] LABS: Basophils Absolute Auto 0.04 K/uL (0.00-0.30); Basophils Percent Auto 0.4 % (0.0-3.0); Eosinophils Absolute Auto 0.36 K/uL (0.00-0.50); Eosinophils Percent Auto 3.6 % (0.0-7.0); Hematocrit 34.8 % (37.0-53.0); Hemoglobin* 10.8 gm/dL (13.5-17.5); Immature Granulocytes Abs Auto 0.03 K/uL (0.00-0.30); Immature Granulocytes Pct Auto 0.3 %; Lymphocytes Percent Auto 10.8 % (20-44); Mean Corpuscular HGB Conc 31 gm/dL (32-36); Mean Corpuscular Hemoglobin 28 pg (26-34); Mean Corpuscular Volume 91 fL (80-100); Monocytes Percent Auto 6.8 % (0.0-11.0); Neutrophils Percent Auto 78.1 % (42.0-72.0); Platelet Count* 358 K/uL (140-440); RDW Coefficient of Variation % 16.7 % (11.5-15.5); Red Blood Count 3.81 m/uL (4.30-5.90)
[2023-08-02 10:46] LABS: Slide Review Reflex No
[2023-08-02 10:51] LABS: Albumin* 4.6 g/dL (3.3-5.0); Chloride* 103 mmol/L (96-114)
[2023-08-02 10:52] LABS: Potassium* 4.6 mmol/L (3.6-5.1); Sodium* 139 mmol/L (135-149)
[2023-08-02 10:53] LABS: Iron* 70 ug/dL (49-181)
[2023-08-02 10:54] LABS: Alkaline Phosphatase* 58 U/L (40-150); Anion Gap 12 mEq/L (7-15); Aspartate Amino Transferase* 19 U/L (12-35); Bilirubin Total* 0.5 mg/dL (0.1-1.5); Blood Urea Nitrogen* 30 mg/dL (7-30); Carbon Dioxide* 24 mmol/L (20-32); Creatinine* 1.1 mg/dL (0.5-1.5); Estimated Glomerular Filt Rate 68 ml/min; Total Protein* 7.9 g/dL (6.0-8.3)
[2023-08-02 10:55] LABS: Alanine Aminotransferase* 20 U/L (4-50); Glucose* 197 mg/dL (60-115)
[2023-08-02 11:03] LABS: Percent Iron Saturation 22 % (20-50); Total Iron Binding Capacity 324 ug/dL (261-462)
[2023-08-05 16:23] LABS: Albumin 3.59 g/dL (3.75-5.01); Alpha 1 Globulin 0.33 g/dL (0.19-0.46); Alpha 2 Globulin 1.22 g/dL (0.48-1.05); Immunofixation IFE Done; Immunoglobulin A 452 mg/dL (68-408); Immunoglobulin G 841 mg/dL (768-1632); Immunoglobulin M 19 mg/dL (35-263); Kappa Qnt Free Light Chains 48.63 mg/L (3.30-19.40); Kappa/Lambda Light Chain Ratio 2.05 (0.26-1.65); Lambda Qnt Free Light Chains 23.68 mg/L (5.71-26.30); Total Protein, Serum 7.2 g/dL (6.3-8.2)
== END 2023-08-02 09:58 | disposition home or self-care (01) ==
LOC: LAB 10:02
PROVIDERS: PCP Family Medicine; Visit Provider Internal Medicine Hematology & Oncology
DX: D47.2 Monoclonal gammopathy (principal); D50.0 Iron deficiency anemia secondary to blood loss (chronic)
CPT/HCPCS: 36415; 80053; 82728; 82784; 83520; 83540; 83550; 84155; 84165; 85025; 86334

== ENCOUNTER 2024-01-24 14:05 | Outpatient (CLI) | payer MEDICARE, OTHER, SELFPAY ==
--- OUTSIDE RECORDS SUMMARY | 2024-01-24 14:09 | XMS_ITS | Clinical Summary ---
Author Organization [facility] Address [place], [place] [address] Care Team Providers Care Ferry Hand Name Role Phone Prashant Valdez MD Primary Care Provider [phone] Allergies Active Allergy Reactions Criticality Noted Date [...] 1 Drop into right eye once daily. Active simvastatin (ZOCOR) 10 mg tablet Take 10 mg by mouth at bedtime. Active calcium carbonate/vitamin D3 (CALCIUM 500 + D ORAL) Take 500 mg by mouth once daily. Active nitroglycerin (NITROSTAT) 0.4 mg sublingual tabletIndications: Coronary artery disease, unspecified vessel or lesion type, unspecified whether angina present, unspecified whether [place] or transplanted heart Place 1 Tablet (0.4 [...] by mouth 2 times daily before meals. Active WalkerIndications: S/P CABG x 4 Walker with front wheels for home use. 1 Each 09/16/2021 Active acetaminophen (TYLENOL EXTRA STRGTH) 500 [...] HumaLOG KwikPen Insulin 100 unit/mL inpn pen 05/04/2023 Active folic acid 1 mg tablet Take 1 mg by mouth. 02/28/2023 02/28/20 2 4 Active aspirin chewable 81 mg chewable tablet Aspirin Oral inactive Active spironolactone (ALDACTONE) 25 mg tabletIndications: Heart failure with preserved ejection fraction, unspecified HF chronicity (HC) Take 1 Tablet (25 mg) by mouth every morning. 90 Tablet 3 05/08/2023 Active magnesium oxide (Mag-Ox) 400 mg tabletIndications: Heart failure with preserved ejection fraction, unspecified HF chronicity (HC),Hypomagnesemi a Take 1 Tablet (400 mg) by mouth once daily. 90 Tablet 3 05/08/2023 Active carvediloL (COREG) 6.25 mg tabletIndications: S/P CABG x 4,HTN (hypertension) Take 1 Tablet (6.25 mg) by mouth two times daily with meals. 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 Abnormal nuclear stress test 08/10/2021 Dyslipidemia 08/10/2021 Type 2 diabetes mellitus wit h hyperglycemia, without long-term current use of insulin 05/09/2021 Abdominal aortic aneurysm (AAA) without rupture 05/09/2021 Permanent atrial fibrillation 01/24/2019 Elevated PSA 10/13/2015 Erectile dysfunction 10/13/2015 HTN (hypertension) 06/02/2015 Gastric ulcer 06/23/2010 Overview: EGD 06/2010 ulcers Encounters Date Type Department Care Team Description 10/27/[address] Singer [address] [place] [address] Ramesh Mantilla MD Refill Request (Torsemide) from Last 3 Months Immunizations Name Administration [...] Comments Blood Pressure 138/60 05/08/2023 12:49 PM MUSHROOM CULTIVATOR Pulse 84 05/08/2023 12:49 PM MUSHROOM CULTIVATOR Temperature 36.9 ??C (98.4 ??F) 09/17/2021 7:47 AM CD T Respiratory Rate 19 09/23/2021 1:02 PM CDT Oxygen Saturation 96% 05/08/2023 12:49 PM MUSHROOM CULTIVATOR Inhaled Oxygen Concentration - - Weight 93.4 kg (206 lb) 05/08/2023 12:49 PM MUSHROOM CULTIVATOR Height 170.2 cm (5' 7) 05/08/2023 12:49 PM MUSHROOM CULTIVATOR Body Mass Index 32.26 05/08/2023 12:49 PM MUSHROOM CULTIVATOR Plan of Treatment Upcoming Encounters Date Type Department Care Team (Late st Contact Info) Description 04/17/2024 Cardiac Device Check [facility] [phone] Health Maintenance Due Date Last Done Comments Depression screening for age 12+ 1956 Hepatitis C screening for ag e 18-79 1962 Medicare Wellness for age 65+ 2009 Zoster (shingles) series for age 50+ (2 of 3) 02/24/2011 12/30/2010 Tetanus booster 06/02/2018 06/02/2008 COVID-19 vaccine series ( season) 2023 04/03/2023, 03/14/2022, 12/16/2021, Additional history exists Influenza for age 65+ 03/02/2024 04/09/2018, 007 BMI (ht and wt on same day) for age 18+ 05/08/2024 05/08/2023, 04/20/2022, 11/18/2021, Additional history exists Tdap Completed 06/02/2008 Pneumococcal series for age 65+ Completed 04/09/2018, 10/07/2014, 10/23/2008 Goals Goal Patient Goal Type Associated Problems Recent Progress Patient-Stated? Author BLOOD PRESSURE - MAINTAINS BP less than 140/90 Blood Pressure Vivien Read Advance Directives * Full Code (Latest Code Status on File) Date Activated Date Inactivated Comments 09/05/2021 10:28 AM 09/17/2021 5:41 PM Question Answer Comments Code Status Discussion: Reviewed Preferences * Full Code Date Activated Date Inactivated Comments 08/10/2021 8:55 AM 08/10/2021 5:19 PM Question Answer Comments Code Status Discussion: Reviewed Preferences * Full Code Date Activated Date Inactivated Comments 05/10/2021 3:37 PM 05/11/2021 3:34 PM Question Answer Comments Code Status Discussion: Reviewed Preferences Care Teams Ferry Hand Relationship Specialty Start Date End Date Prashant Valdez MD PCP - General Family Practice 08/23/17
--- OUTSIDE RECORDS SUMMARY | 2024-01-24 14:09 | XMS_ITS | Clinical Summary ---
Author Organization [facility] Address [address] [place] [address] Care Team Providers Care Mix Crusher Operator Name Role Phone Needs Pcp, Assignment Primary Care Provider [phone] Source Comments You are receiving this document as you are listed as the primary care provider,follow-up provider, or the patient has been referred to you for consultation.This is in compliance with the Medicare andMedicaid EHR Incentive Program,which states Providers who transition their patient to another setting of careor provider of care or refers their patient to another provider of care shouldprovide summary care record for each transition of care or referral. [facility] Allerg[facility] Active Allergy Reactions Criticality Noted Date Comments Cephalosporins Hives High 02/28/2023 Medications Medication Sig Dispensed Refills Start Date End Date Status metFORMIN XR (GLUCOPHAGE XR) 500 MG 24 hour release tablet Take 2 Tablets (1,000 mg) by mouth two times a day. 09/17/2022 Active glipiZIDE (GLUCOTROL) 5 MG tablet Take 1 Tablet (5 mg) by mouth two times a day before meals. Active simvastatin (ZOCOR) 20 MG tablet Take 1 Tablet (20 mg) by mouth daily at bedtime. 12/04/2022 Active torsemide (DEMADEX) 20 MG tablet Take 1 Tablet (20 mg) by mouth daily. Active spironolactone (ALDACTONE) 50 MG tablet Take 1 Tablet (50 mg) by mouth two times a day. 02/02/2023 Active MAGNESIUM OXIDE 400 (240 Mg) MG tablet Take 1 Tablet (400 mg) by mouth daily. 12/14/2022 Active B-D ULTRAFINE III SHORT PEN 31G X 8 MM needle Inject subcutaneously daily. 01/19/2023 Active aspirin 81 MG chewable tablet Chew and swallow 1 Tablet (81 mg) by mouth daily. Active carvedilol (COREG) 6.25 MG tablet Carvedilol Oral BID active Active dutasteride (AVODART) 0.5 MG capsule Dutasteride Oral active Active acetaminophen (TYLENOL) 500 MG tablet every 6 hours as needed. Active B Complex Vitamins (VITAMIN B COMPLEX OR) Take 2,000 Units by mouth daily. Active timolol (BETIMOL) 0.5 % eye drop solution Timolol Ophthalmic Drops 0.5 % active Active GLUCOSAMINE CHONDROITIN COMPLX OR Glucosamine-Chondroi tin Oral 250 mg-200 mg active Active Ferrous Sulfate Dried (FERROUS SULFATE CR OR) Ferrous Sulfate Oral active Active Cholecalciferol 50 MCG (2000 UT) TBDP Cholecalciferol Oral active Active Albuterol Sulfate, sensor, 108 (90 Base) MCG/ACT AEPB Albuterol HFA Inhaler 90 mcg/actuation active Active folic acid 1 MG tablet Take 1 Tablet (1 mg) by mouth daily. 90 Tablet 3 02/28/2023 4 Active LANTUS SOLOSTAR 100 UNIT/ML pen Taking 32 units nightly 04/10/2023 Active methotrexate 2.5 MG tablet Take 6 Tablets (15 mg) by mouth once every week. 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 Dyslipidemia 08/10/2021 Abnormal nuclear stress test 08/10/2021 Abdominal aortic aneurysm (AAA) without rupture 05/09/2021 Elevated PSA 10/13/2015 Erectile dysfunction 10/13/2015 Immunizations Name Administration Dates Next Due Flu Vac (3+ yrs) 03/20/2014, 2,02/23/2011, 010,06/02/2008,06/03/2007,05/16/2005, Flu Vac Preserv Free (3+yrs) 04/23/2013,03/24/20 09 [id number] 06/30/2009 HepA Adult (19+ yrs) 12/07/1999 HepB Adult (Engerix-B, 20+ y rs, 3 dose series) 01/05/2000,12/07/1999 IPV (Polio) 12/07/1999 Influenza IIV3 (Trivalent) F luzone Highdose, 65+ Yrs ([address]) 04/16/2019,04/09/2018,03/01/2017, 016,03/18/2015 Influenza IIV4 (Quadrivalent ) 0.5mL (57792) 04/19/2021 Influenza IIV4 (Quadrivalent ) Fluad, 65+ [...] Years Used Date Smoking Tobacco: Former Cigarettes Smokeless Tobacco: Never Tobacco Cessation:Counseling Given: Not [...] Comments Blood Pressure 142/68 07/24/2023 2:32 PM INTEGRATED PROGRAM TEACHER Pulse 85 07/24/2023 2:32 PM INTEGRATED PROGRAM TEACHER Temperature - - Respiratory Rate - - Oxygen Saturation - - Inhaled Oxygen Concentration - - Weight 92.3 kg (203 lb 8 oz) 07/24/2023 2:32 PM INTEGRATED PROGRAM TEACHER Height 170.2 cm (5' 7) 04/10/2023 10:06 AM CDT Body Mass Index 31.87 04/10/2023 10:06 AM CDT Plan of Treatment Upcoming Encounters Date Type Department Care Team (Late st Contact Info) Description 02/05/2024 2:15 PM CDT Appointment [facility] [address] [place], [place] [phone] Desilet, Luke W, DO [address] [place], [place] [address] Health Maintenance Due Date Last Done Comments Diabetes: Eye Exam 1944 Diabetes: Foot Exam 1944 Diabetes: Lipid Panel 1944 Diabetes: Urine Microalbumin 1945 Medicare Annual Wellness Visit 1945 HepA (2 of 2 - Risk 2-dose series) 06/07/2000 12/07/1999 HepB (3) 06/07/2000 01/05/2000, 12/07/1999 Diabetes: HGBA1C 02/24/2022 11/24/2021 COVID-19 Vaccine ( season) 2023 04/03/2023, 03/14/2022, 12/16/2021, Additional history exists Influenza (#1) 2024 04/03/2023, 03/02, 04/19/2021, Additional history exists Diabetes: Creatinine 07/24/2024 07/24/2023, 04/10/2023, 03/06/2023, Additional history exists DTaP/Tdap/Td (4 - Tdap) 01/05/2028 01/05/20 18, 06/02/2008, 12/18/2005 IPV (Polio) Aged Out 12/07/1999 No longer eligi ble based on patient's age to complete this topic Pneumococcal 65+ Yrs Completed 04/09/2018, 10/07/2014, 10/23/2008 Zoster/Shingles Completed 02/27/2019, 11/30, 12/21/2011, Additional history exists Hep C Screening (Preventive Services) Completed 02/28/2023 Hib Aged Out No longer eligi ble based on patient's age to complete this topic MCV4 Aged Out No longer eligi ble based on patient's age to complete this topic Procedures Procedure Name Priority Date/Time Associated Diagnosis Comments CREATININE / GFR Routine 07/24/2023 3:34 PM INTEGRATED PROGRAM TEACHER 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 use HEPATITIS C ANTIBODY, WITH REFLEX Routine 02/28/2023 9:50 AM CDT 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 use HGB A1C (EXTERNAL RESULT) Routine 11/24/2021 9:07 AM CDT from Last 3 Months or Most Recently Relevant to Health Maintenance Results * (ABNORMAL) Creatinine / GFR (07/24/2023 3:34 PM INTEGRATED PROGRAM TEACHER) Creatinine 1.26(H) 0.73 - 1.18 mg/dL 07/24/2023 4:57 PM INTEGRATED PROGRAM TEACHER [facility] GFR, Estimated 58(L) >60 mL/min/1.7 3m2 07/24/2023 4:57 PM INTEGRATED PROGRAM TEACHER [facility] Blood Venipuncture / Unknown 07/24/2023 3:34 PM INTEGRATED PROGRAM TEACHER 07/24/2023 3:34 PM INTEGRATED PROGRAM TEACHER Narrative [facility] - 07/24/2023 4:57 PM INTEGRATED PROGRAM TEACHER The National Kidney Disease Education Program suggests measuring Cystatin C in patients with eGFRcrea of 45 to 59 ml/min/1.73^2 who do not have other markers of kidney damage (i.e. elevated urine Albumin/Creatinine Ratio or a prior Cystatin C confirming the presence of chronic kidney disease). Idris Brink Watkins Hiret DO LAB_1 [facility] [address] [place] [address], [facility] [phone] * Hepatitis C Antibody, with Reflex (02/28/2023 9:50 AM CDT) Hepatitis C Antibody Negative (Non Reactive) Negative (Non Reactive) 02/28/2023 2:22 PM CDT [facility] Comment:Antibodies to HCV no t detected. Does not exclude the possiblity of exposure to HCV. Blood Venipuncture / Unknown 02/28/2023 9:50 AM CDT 02/28/2023 9:50 AM CDT Idris Brink [place] Direct Autoromero DO LAB_1 [facility] [address] [place] [address], [facility] from Last 3 Months or Most Recently Relevant to Health Maintenance Care Teams Mix Crusher Operator Relationship Specialty Start Date End Date Needs Pcp, [place] [address] PCP - General 04/10/23
[2024-01-24 14:37] LABS: Basophils Absolute Auto 0.05 K/uL (0.00-0.30); Basophils Percent Auto 0.5 % (0.0-3.0); Eosinophils Absolute Auto 0.39 K/uL (0.00-0.50); Eosinophils Percent Auto 3.7 % (0.0-7.0); Hematocrit 35.2 % (37.0-53.0); Hemoglobin* 10.8 gm/dL (13.5-17.5); Immature Granulocytes Abs Auto 0.16 K/uL (0.00-0.30); Immature Granulocytes Pct Auto 1.5 %; Lymphocytes Percent Auto 11.2 % (20-44); Mean Corpuscular HGB Conc 31 gm/dL (32-36); Mean Corpuscular Hemoglobin 30 pg (26-34); Mean Corpuscular Volume 96 fL (80-100); Monocytes Percent Auto 6.1 % (0.0-11.0); Platelet Count* 323 K/uL (140-440); RDW Coefficient of Variation % 16.6 % (11.5-15.5); Red Blood Count 3.65 m/uL (4.30-5.90)
[2024-01-24 14:50] LABS: Slide Review Reflex No
[2024-01-24 15:04] LABS: Albumin* 4.5 g/dL (3.3-5.0); Chloride* 103 mmol/L (96-114); Sodium* 138 mmol/L (135-149)
[2024-01-24 15:05] LABS: Potassium* 5.4 mmol/L (3.6-5.1)
[2024-01-24 15:07] LABS: Alanine Aminotransferase* 20 U/L (4-50); Alkaline Phosphatase* 68 U/L (40-150); Anion Gap 8 mEq/L (7-15); Aspartate Amino Transferase* 21 U/L (12-35); Bilirubin Total* 0.3 mg/dL (0.1-1.5); Blood Urea Nitrogen* 34 mg/dL (7-30); Carbon Dioxide* 27 mmol/L (20-32); Creatinine* 1.5 mg/dL (0.5-1.5); Estimated Glomerular Filt Rate 47 ml/min; Glucose* 156 mg/dL (60-115); Total Protein* 7.2 g/dL (6.0-8.3)
[2024-01-24 15:08] LABS: Calcium* 9.6 mg/dL (8.4-10.6)
[2024-01-24 15:19] LABS: Iron* 66 ug/dL (49-181)
[2024-01-24 15:28] LABS: Percent Iron Saturation 20 % (20-50); Total Iron Binding Capacity 332 ug/dL (261-462)
[2024-01-24 15:42] LABS: Ferritin* 78.3 ng/mL (17.9-464.0)
[2024-01-28 18:00] LABS: Alpha 2 Globulin 0.96 g/dL (0.48-1.05); Immunofixation IFE Done; Immunoglobulin A 317 mg/dL (68-408); Immunoglobulin G 614 mg/dL (768-1632); Immunoglobulin M 27 mg/dL (35-263); Kappa Qnt Free Light Chains 31.27 mg/L (3.30-19.40); Kappa/Lambda Light Chain Ratio 1.79 (0.26-1.65); Lambda Qnt Free Light Chains 17.49 mg/L (5.71-26.30); Total Protein, Serum 6.7 g/dL (6.3-8.2)
== END 2024-01-24 14:06 | disposition home or self-care (01) ==
PROVIDERS: PCP Family Medicine; Visit Provider Internal Medicine Hematology & Oncology
DX: D50.0 Iron deficiency anemia secondary to blood loss (chronic) (principal); D47.2 Monoclonal gammopathy
CPT/HCPCS: 36415; 80053; 82728; 82784; 83520; 83540; 83550; 84155; 84165; 85025; 86334

== ENCOUNTER 2024-01-31 15:28 | Observation (INO) | payer MEDICARE, OTHER, SELFPAY ==
[2024-01-31] VITALS (12 sets, daily range): BP systolic 126–159; BP diastolic 65–87; PULSE 70–87; RESP 16–20; TEMP 36.2–36.4; O2SAT 92–99; BMI 31.3; BMI 32.6
--- NOTE | 2024-01-31 15:54 | CRLHL7_ITS ---
For Patients: As a result of the Century Cures Act, medical imaging exams and procedure reports are released immediately into your electronic medical record. You may view this report before your referring provider. If you have questions, please contact your health care provider. Indication: Right-sided vision loss. Technique: Noncontrast CT of the head with multiplanar reconstruction utilizing bone and soft tissue algorithms. Comparison: None available. Findings: No acute intracranial hemorrhage. Apparent focal hypoattenuation within right paramedian occipital lobe (series 3, image 36). The ventricles are normal in size. There is atherosclerotic calcification of the carotid siphons and intracranial vertebral arteries. No abnormal extra-axial fluid collection is identified. Intact calvarium. Bilateral pseudophakia. Diffuse mucosal thickening within the right maxillary sinus. Impression: 1. Focal hypoattenuation within the right paramedian occipital lobe (series 3, image 36), potentially artifactual, however acute or subacute cortical infarct can not be excluded. 2. No acute intracranial hemorrhage. 3. Atherosclerotic calcification of the carotid siphons and intracranial vertebral arteries. Please note that all CT scans at this facility use dose modulation, iterative reconstruction, and/or weight-based dosing when appropriate to reduce radiation dose to as low as reasonably achievable. Dictated by Bala Ceballos MD @ 01/31/2024 5:36:26 PM (Electronically Signed)
--- NOTE | 2024-01-31 15:54 | CRLHL7_ITS ---
For Patients: As a result of the 21st Century Cures Act, medical imaging exams and procedure reports are released immediately into your electronic medical record. You may view this report before your referring provider. If you have questions, please contact your health care provider. INDICATION: Right eye vision loss. TECHNIQUE: CTA neck with contrast bolus tracking, 3D angiographic rendering using maximum intensity projection (MIP) and images permanently archived. FINDINGS: Both internal carotid arteries are extremely tortuous and redundant. There is highly irregular, heavily calcified plaque in the proximal internal carotid arteries bilaterally. On the right, there is a moderate stenosis, 60 percent by NASCET criteria. On the left, the stenosis is mild, less than 50 percent by NASCET criteria. There is a moderate to severe stenosis at the origin of the right vertebral artery. There is a moderate stenosis at the origin of the left vertebral artery. There is a 2.5 centimeter indeterminate right thyroid nodule. The cervical spine is in normal alignment. Degenerative changes are noted in the cervical spine. IMPRESSION: 1. Moderate proximal right ICA stenosis, 60 percent by NASCET criteria, due to highly irregular, heavily calcified plaque. 2. Mild proximal left ICA stenosis, less than 50 percent by NASCET criteria. 3. Large indeterminate right thyroid nodule; ultrasound would be useful for further evaluation if not already performed. Please note that all CT scans at this facility use dose modulation, iterative reconstruction, and/or weight-based dosing when appropriate to reduce radiation dose to as low as reasonably achievable. Dictated by David Arnold MD @ 02/01/2024 9:56:32 AM (Electronically Signed)
--- NOTE | 2024-01-31 15:54 | CRLHL7_ITS ---
For Patients: As a result of the Century Cures Act, medical imaging exams and procedure reports are released immediately into your electronic medical record. You may view this report before your referring provider. If you have questions, please contact your health care provider. INDICATION: Right-sided vision loss. TECHNIQUE: CTA head with contrast bolus tracking, 3D angiographic rendering using maximum intensity projection (MIP) and images permanently archived. FINDINGS: There is calcified plaque around both carotid siphons. There is otherwise normal opacification of the intracranial vasculature. There is no large vessel occlusion. No aneurysm is identified. IMPRESSION: No large vessel occlusion or significant intracranial stenosis. Please note that all CT scans at this facility use dose modulation, iterative reconstruction, and/or weight-based dosing when appropriate to reduce radiation dose to as low as reasonably achievable. Dictated by David Arnlod MD @ 02/01/2024 9:50:37 AM (Electronically Signed)
[2024-01-31 16:36] LABS: Creatinine, Point-of-Care* 1.8 mg/dl (0.6-1.3)
--- OUTSIDE RECORDS SUMMARY | 2024-01-31 16:46 | XMS_ITS | Clinical Summary ---
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 Abnormal nuclear stress test 08/10/2021 Dyslipidemia 08/10/2021 Type 2 diabetes mellitus wit h hyperglycemia, without long-term current use of insulin 05/09/2021 Abdominal aortic aneurysm (AAA) without rupture 05/09/2021 Permanent atrial fibrillation 01/24/2019 Elevated PSA 10/13/2015 Erectile dysfunction 10/13/2015 HTN (hypertension) 06/02/2015 Gastric ulcer 06/23/2010 Overview: EGD 06/2010 ulcers Immunizations Name Administration Dates Next Due Influenza, [...] Comments Blood Pressure 138/60 05/08/2023 12:49 PM CAR ELECTRONICS INSTALLER Pulse 84 05/08/2023 12:49 PM CAR ELECTRONICS INSTALLER Temperature 36.9 ??C (98.4 ??F) 09/17/2021 7:47 AM CD T Respiratory Rate 19 09/23/2021 1:02 PM CDT Oxygen Saturation 96% 05/08/2023 12:49 PM CAR ELECTRONICS INSTALLER Inhaled Oxygen Concentration - - Weight 93.4 kg (206 lb) 05/08/2023 12:49 PM CAR ELECTRONICS INSTALLER Height 170.2 cm (5' 7) 05/08/2023 12:49 PM CAR ELECTRONICS INSTALLER Body Mass Index 32.26 05/08/2023 12:49 PM CAR ELECTRONICS INSTALLER Plan of Treatment Upcoming Encounters Date Type Department Care Team (Late st Contact Info) Description 04/17/2024 Cardiac Device Check Propanc [facility] [phone] Health Maintenance Due Date Last Done Comments [...] Code Status Discussion: Reviewed Preferences Care Teams Ultrasound Spec Relationship Specialty Start Date End Date Prashant Valdez MD PCP - General Family Practice 08/23/17
--- OUTSIDE RECORDS SUMMARY | 2024-01-31 16:46 | XMS_ITS | Clinical Summary ---
Author Organization [facility] Address [address] [place] [address] Care Team Providers Care Polygraph Technician Name Role Phone Needs Pcp, Assignment Primary Care Provider [phone] Source Comments You are receiving this document [...] for each transition of care or referral. 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 Dyslipidemia 08/10/2021 Abnormal nuclear stress test 08/10/2021 Abdominal aortic aneurysm (AAA) without rupture 05/09/2021 Elevated PSA 10/13/2015 Erectile dysfunction 10/13/2015 Immunizations Name Administration Dates Next Due Flu Vac (3+ yrs) 03/20/2014, 2,02/23/2011, 010,06/02/2008,06/03/2007,05/16/2005, Flu Vac Preserv Free (3+yrs) 04/23/2013,03/24/20 09 [id number] 06/30/2009 HepA Adult (19+ yrs) 12/07/1999 HepB Adult (Engerix-B, 20+ y rs, 3 dose series) 01/05/2000,12/07/1999 IPV (Polio) 12/07/1999 Influenza IIV3 (Trivalent) F luzone Highdose, 65+ Yrs (48744) 04/16/2019,04/09/2018,03/01/2017, 016,03/18/2015 Influenza IIV4 (Quadrivalent ) 0.5mL (64572) 04/19/2021 Influenza IIV4 (Quadrivalent ) Fluad, 65+ [...] Comments Blood Pressure 142/68 07/24/2023 2:32 PM CHEMISTRY QUALITY CONTROL TECHNICIAN Pulse 85 07/24/2023 2:32 PM CHEMISTRY QUALITY CONTROL TECHNICIAN Temperature - - Respiratory Rate - - Oxygen Saturation - - Inhaled Oxygen Concentration - - Weight 92.3 kg (203 lb 8 oz) 07/24/2023 2:32 PM CHEMISTRY QUALITY CONTROL TECHNICIAN Height 170.2 cm (5' 7) 04/10/2023 10:06 AM CDT Body Mass Index 31.87 04/10/2023 10:06 AM CDT Plan of Treatment Upcoming Encounters Date Type Department Care Team (Late st Contact Info) Description 02/05/2024 2:15 PM CDT Appointment [facility] [address] [place], [place] [id number] Desilet, Luke W, DO [address] [place], [place] [address] Health Maintenance Due Date Last Done Comments [...] CREATININE / GFR Routine 07/24/2023 3:34 PM CHEMISTRY QUALITY CONTROL TECHNICIAN 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 use HEPATITIS C ANTIBODY, WITH REFLEX Routine 02/28/2023 9:50 AM CDT 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 use HGB A1C (EXTERNAL RESULT) Routine 11/24/2021 9:07 AM CDT from Last 3 Months or Most Recently Relevant to Health Maintenance Results * (ABNORMAL) Creatinine / GFR (07/24/2023 3:34 PM CHEMISTRY QUALITY CONTROL TECHNICIAN) Creatinine 1.26(H) 0.73 - 1.18 mg/dL 07/24/2023 4:57 PM CHEMISTRY QUALITY CONTROL TECHNICIAN [facility] GFR, Estimated 58(L) >60 mL/min/1.7 3m2 07/24/2023 4:57 PM CHEMISTRY QUALITY CONTROL TECHNICIAN [facility] Blood Venipuncture / Unknown 07/24/2023 3:34 PM CHEMISTRY QUALITY CONTROL TECHNICIAN 07/24/2023 3:34 PM CHEMISTRY QUALITY CONTROL TECHNICIAN Narrative [facility] - 07/24/2023 4:57 PM CHEMISTRY QUALITY CONTROL TECHNICIAN The National Kidney Disease Education Program suggests measuring Cystatin C in patients with eGFRcrea of 45 to 59 ml/min/1.73^2 who do not have other markers of kidney damage (i.e. elevated urine Albumin/Creatinine Ratio or a prior Cystatin C confirming the presence of chronic kidney disease). Idris Brink Makoot DO LAB_[facility] [address] [place] [address], [facility] [phone] * Hepatitis C Antibody, with Reflex (02/28/2023 9:50 AM CDT) Hepatitis C Antibody Negative (Non Reactive) Negative (Non Reactive) 02/28/2023 2:22 PM CDT [facility] Comment:Antibodies to HCV no t detected. Does not exclude the possiblity of exposure to HCV. Blood Venipuncture / Unknown 02/28/2023 9:50 AM CDT 02/28/2023 9:50 AM CDT Idris Brink Piccsyromero DO [facility] [address] [place] [address], [facility] from Last 3 Months or Most Recently Relevant to Health Maintenance Care Teams Polygraph Technician Relationship Specialty Start Date End Date Needs Pcp, [place] [address] PCP - General 04/10/23
--- NOTE | 2024-01-31 17:40 | ED_ITS ---
HPI - General Adult General Chief complaint: Eye Problems Stated complaint: TIA concerns, loss of vision Time Seen by Provider: 01/31/24 15:48 Source: patient Mode of arrival: ambulatory Limitations: no limitations History of Present Illness HPI narrative: 78 year male coming in today complaining of changes in his vision. Patient states he woke up this morning and thought that the vision in his left eye was little bit blurry. 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 He then went to do his daily exercise and thought that his vision got worse with more tunnel-like vision and blurriness. He did go to the [facility] where he had an examination and then he was sent to the ER for further imaging. Patient denies headache, changes in his hearing. No chest pain or shortness of breath. No recent illness. No fevers or chills. Last known well was last night before he went to sleep. Related Data Home Medications ?Medication ?Instructions ?Recorded ?Confirmed albuterol 90 mcg/actuation aerosol 2 spray inhalation .Q4h Prn 03/03/22 12/24/23 inhaler antiarthritic combination no.2 900 900 mg PO QDAY 03/03/22 12/24/23 mg tablet (glucosamine-chondroitin) cholecalciferol (vitamin D3) 50 2,000 unit PO DAILY 03/03/22 12/24/23 mcg (2,000 unit) capsule diphenhydramine HCl 25 mg tablet 25 mg PO .Bedtime as needed PRN 03/03/22 12/24/23 lactobacillus combination no.9 4 4,000 mmu cells PO QDAY 03/03/22 12/24/23 billion cell capsule (Adult 50 Plus Probiotic) lancets 33 gauge (BD Ultra Fine 03/03/22 12/24/23 Lancets) latanoprost 0.005 % eye drops 0.005 drp ophthalmic (eye) DAILY 03/03/22 12/24/23 omega-3 fatty acids-fish oil 340 1 cap PO QDAY 03/03/22 12/24/23 mg-1,000 mg capsule (Fish Oil) vitamin B complex 1 tab PO QDAY 03/03/22 12/24/23 folic acid 1 mg tablet 1 mg PO QDAY 03/14/23 12/24/23 methotrexate sodium 2.5 mg tablet 15 mg PO QWEEK 03/14/23 12/24/23 magnesium oxide 400 mg (241.3 mg 400 mg PO DAILY 09/04/23 12/24/23 magnesium) tablet Previous Rx's ?Medication ?Instructions ?Recorded carvedilol 6.25 mg tablet 6.25 mg PO BID #180 tabs 09/21/22 torsemide 20 mg tablet 20 mg PO QAM #90 tabs 11/21/22 dutasteride 0.5 mg capsule 0.5 mg PO DAILY #90 caps 03/13/23 insulin lispro 100 unit/mL 1 sliding scale dose subcut 05/02/23 subcutaneous pen (Humalog KwikPen USEASDIRECTD #15 mL (U-100) Insulin) blood sugar diagnostic (OneTouch #100 ea 06/04/23 Ultra Test strips) glipizide 10 mg tablet, extended 10 mg PO QDAY #90 tabs 08/20/23 release 24 hr allopurinol 200 mg tablet See Rx Instructions PO .ud #90 tabs 09/04/23 celecoxib 200 mg capsule 200 mg PO QDAY #30 caps 09/04/23 metformin 500 mg tablet,extended 1,000 mg (2 x 500 mg) PO BID #360 09/10/23 release 24 hr tabs insulin glargine 100 unit/mL (3 40 unit (0.4 mL) subcut QPM #30 mL 10/09/23 mL) subcutaneous pen (Lantus Solostar U-100 Insulin) pen needle, diabetic 31 gauge x #100 ea 10/24/23 5/16 (BD Ultra-Fine Short Pen Needle) spironolactone 50 mg tablet 50 mg PO BID #180 tabs 10/29/23 azithromycin 250 mg tablet See Rx Instructions PO .COMPLEX #6 12/24/23 tabs prednisone 20 mg tablet 20 mg PO QDAY #5 tabs 12/24/23 simvastatin 20 mg tablet 20 mg PO QHS #90 tabs 12/24/23 Allergies Allergy/AdvReac Type Severity Reaction Status Date / Time Cephalosporins Allergy Severe hives, Verified 12/24/23 11:18 black outs Review of Systems Status of ROS: Reports: 10 or more systems reviewed and unremarkable except as noted in History and below 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, 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) Surgical History Status post four vessel coronary artery bypass ?Z95.1 - Presence of aortocoronary bypass graft (ICD-10) Status post cardiac pacemaker procedure ?Z95.0 - Presence of cardiac pacemaker (ICD-10) Status post transurethral resection of prostate ?Z90.79 - Acquired absence of other genital organ(s) (ICD-10) Status post ligation of left atrial appendage ?Z98.890 - Other specified postprocedural states (ICD-10) Status post excision of lipoma ?Z98.890 - Other specified postprocedural states (ICD-10) ?Z86.018 - Personal history of other benign neoplasm (ICD-10) Status post cataract extraction ?Z98.49 - Cataract extraction status, 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) Family History Other FH: coronary artery bypass surgery Social History Smoking Status: Former smoker Do you use any of these nicotine containing products: None How often do you have a drink containing alcohol: never AUDIT-C Alcohol total score: 0 Non-prescribed substance use: denies use Little interest or pleasure in doing things: not at all Feeling down, depressed, or hopeless: not at all Exam Narrative: Exam Narrative: Well-nourished well-developed patient in no acute distress. Alert and oriented. Answers questions appropriately. Mood and affect are appropriate. Thoughts are goal oriented and rational. No tangential or magical thinking noted. Patient speaks in full sentences without needing to catch his breath. HEENT: Normocephalic atraumatic. Left pupil is dilated status post eye exam. Conjunctivae are moist without any icterus noted. Moist mucous membranes. Posterior pharynx is normal. Neck is soft without any lymphadenopathy or thyromegaly. No masses are appreciated. Cardiovascular: Heart is regular rate and rhythm S1 and S2 are present without any murmurs. Lungs: Clear to auscultation bilaterally no wheezes rhonchi or rales are appreciated. Patient takes deep breaths without any discomfort. Abdomen: Soft and nontender nondistended with normal bowel sounds. Extremities: Trace edema. Skin: Well perfused without any obvious rashes. Strength is 5/5 of the upper and lower extremities. Reflexes are 2+ and symmetric at the knees. Cranial nerves 3-12 are normal. Hkamap-ma-auqg is normal. There is no nystagmus either horizontally or vertically. Gait is normal. Const: Vital Signs, click to edit/add: Vital Signs - 24 hr 01/31/24 15:41 Temperature 97.2 F L Pulse Rate [Left P ulse Oximeter] 87 Respiratory Rate 18 Blood Pressure [Le ft Upper Arm] 159/78 H Pulse Oximetry 96 Oxygen Delivery Me thod Room Air Course Course ED Course: Head CT, head neck CTA all ordered. Patient cannot have an MRI secondary to pacemaker. Received a phone call from the radiologist, Dr. Ceballos, who is concerned about the possibility of occipital lobe stroke. Did contact Stroke Neurology at [facility], Dr. Brush, who was able to look at the images and confirmed this possible stroke. He recommended 325 mg of aspirin and admission for stroke workup for concerns of possible embolic stroke. Patient stated that his vision did improve while he was in the ER, but did not go all the way back to normal. Vital Signs Vital signs: Initial Vital Signs Temperature 97.2 F L 01/31/24 15:41 Temperature Source Temporal Artery Scan 01/31/24 15:41 Pulse Rate 87 01/31/24 15:41 Pulse Rhythm Regular 01/31/24 15:41 Pulse Strength 3+ Normal 01/31/24 15:41 Respiratory Rate 18 01/31/24 15:41 Blood Pressure 159/78 H 01/31/24 15:41 Blood Pressure Mean 105 01/31/24 15:41 Blood Pressure Position Sitting 01/31/24 15:41 Pulse Oximetry 96 01/31/24 15:41 Oxygen Delivery Method Room Air 01/31/24 15:41 Vital Signs Temperature 97.2 F L 01/31/24 15:41 Pulse Rate 87 01/31/24 15:41 Respiratory Rate 18 01/31/24 15:41 Blood Pressure 159/78 H 01/31/24 15:41 Pulse Oximetry 96 01/31/24 15:41 Oxygen Delivery Method Room Air 01/31/24 15:41 Temperature 97.2 F L 01/31/24 15:41 Pulse Rate 87 01/31/24 15:41 Respiratory Rate 18 01/31/24 15:41 Blood Pressure 159/78 H 01/31/24 15:41 Pulse Oximetry 96 01/31/24 15:41 Oxygen Delivery Method Room Air 01/31/24 15:41 Medications Administered Medications: Discontinued Medications Generic Name Dose Route Start Last Admin Trade Name Reggieq PRN Reason Stop Dose Admin Aspirin 324 mg 01/31/24 18:01 01/31/24 18:06 Aspirin 81 Mg Tab.Chew PO 01/31/24 18:02 324 mg ONCE ONE Administration Medical Decision Making MDM Narrative Medical decision making narrative: Stroke with vision changes. Patient will be admitted for further management. Medical Records Medical records reviewed: Yes I reviewed the patient's medical records Lab Data Lab results reviewed: Yes I reviewed the patient's lab results Labs: Lab Results 01/31/24 Range/Units 16:45 POC Creatinine 1.8 H (0.6-1.3) mg/dl Imaging Data CT scan - head: Attestation: I have reviewed the pertinent imaging results. Radiologist's impression: Noncontrast CT of the head with multiplanar reconstruction utilizing bone and soft tissue algorithms. Comparison: None available. Findings: No acute intracranial hemorrhage. Apparent focal hypoattenuation within right paramedian occipital lobe (series 3, image 36). The ventricles are normal in size. There is atherosclerotic calcification of the carotid siphons and intracranial vertebral arteries. No abnormal extra-axial fluid collection is identified. Intact calvarium. Bilateral pseudophakia. Diffuse mucosal thickening within the right maxillary sinus. Impression: 1. Focal hypoattenuation within the right paramedian occipital lobe (series 3, image 36), potentially artifactual, however acute or subacute cortical infarct can not be excluded. 2. No acute intracranial hemorrhage. 3. Atherosclerotic calcification of the carotid siphons and intracranial vertebral arteries. Head neck CTA: Attestation: I have reviewed the pertinent imaging results. Radiologist's impression: Preliminary Report: COMPARISON: None. IMPRESSION: CT head: No significant findings. No sign of acute CVA, intracranial hemorrhage, or mass effect. CTA head: Unremarkable. No sign of occlusion or significant aneurysm. CTA neck: Tortuous courses of the internal carotid arteries with multiple kinks, but no definite dissection flap. No sign of dissection or significant stenosis. Discharge Plan Discharge Clinical Impression: Stroke Patient Disposition: Admitted As Observation Condition: Stable Prescriptions: No Action magnesium oxide 400 mg (241.3 mg magnesium) tablet 400 mg PO DAILY celecoxib 200 mg capsule 200 mg PO QDAY Qty: 30 3RF allopurinol 200 mg tablet See Rx Instructions PO .ud Qty: 90 3RF Rx Instructions: 1/2 tablet daily for 10 days, then 1 tab daily orally UD; cholecalciferol (vitamin D3) 50 mcg (2,000 unit) capsule 2,000 unit PO DAILY diphenhydramine HCl 25 mg tablet 25 mg PO .Bedtime as needed PRN latanoprost 0.005 % drops 0.005 drp ophthalmic (eye) DAILY Adult 50 Plus Probiotic 4 billion cell capsule 4,000 mmu cells PO QDAY Rx Instructions: administer with a meal glucosamine-chondroitin 900 mg tablet 900 mg PO QDAY Fish Oil 340-1,000 mg capsule 1 cap PO QDAY vitamin B complex Tablet 1 tab PO QDAY albuterol 90 mcg/actuation aerosol 2 spray inhalation .Q4h Prn (DME) lancets [BD Ultra Fine Lancets] 33 gauge misc See Rx Instructions .Route Rx Instructions: As directed torsemide 20 mg tablet 20 mg PO QAM Qty: 90 3RF methotrexate sodium 2.5 mg tablet 15 mg PO QWEEK Rx Instructions: EVERY SUNDAY folic acid 1 mg tablet 1 mg PO QDAY azithromycin 250 mg tablet See Rx Instructions PO .COMPLEX Qty: 6 0RF Rx Instructions: For 250 mg dose pack: take 500 mg today (day 1), then 250 mg for 4 days (days 2-5) PO prednisone 20 mg tablet 20 mg PO QDAY Qty: 5 0RF carvedilol 6.25 mg tablet 6.25 mg PO BID Qty: 180 3RF dutasteride 0.5 mg capsule 0.5 mg PO DAILY Qty: 90 3RF insulin lispro [Humalog KwikPen Insulin] 100 unit/mL insulin pen 1 sliding scale dose subcut USEASDIRECTD Qty: 15 3RF Rx Instructions: sliding scale 4 units before meals if sugar is 60-100, 6 units from 101-160, 8 units for 161-220, 10 units for 221-280, and 12 units for 281 or higher. (DME) OneTouch Ultra Test Strip See Rx Instructions .Route Qty: 100 3RF Rx Instructions: TEST FOUR TIMES DAILY. glipizide 10 mg tablet extended release 24hr 10 mg PO QDAY Qty: 90 3RF metformin 500 mg tablet extended release 24 hr 1,000 mg PO BID Qty: 360 1RF insulin glargine [Lantus Solostar U-100 Insulin] 100 unit/mL (3 mL) insulin pen 40 unit subcut QPM Qty: 30 6RF (DME) pen needle, diabetic [BD Ultra-Fine Short Pen Needle] 31 gauge x 5/16 needle See Rx Instructions .Route Qty: 100 3RF Rx Instructions: use daily spironolactone 50 mg tablet 50 mg PO BID Qty: 180 3RF simvastatin 20 mg tablet 20 mg PO QHS Qty: 90 0RF Follow Up/Referrals: Prashant Valdez MD [Primary Care Provider] -
[2024-01-31] MEDS: ASPIRIN 81 MG TAB.CHEW 324 MG PO (18:06)
--- NOTE | 2024-01-31 18:26 | PM.IMHP1 ---
Hospitalist- H&P: HPI History of Present Illness Date Seen: 01/31/24 Chief complaint: TIA concerns, loss of vision Narrative: Joni Moncada is a 78 year old male with significant past medical history including diabetes mellitus, insulin dependent, hypertension, hyperlipidemia, kidney stones, vision loss right eye, BPH, atrial fibrillation status post dual-chamber pacemaker, CAD status post CABG, HFrEF is admitted to the medical floor for further management suspected embolic stroke. Patient reports he woke up feeling his normal self this morning and went to the gym around 8:00 a.m. to lift weights and walk in the pool as he normally does each morning when he noticed he was beginning to lose his vision in his left eye. 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 He tells me it was like a tunnel which gradually worsened. He had a friend who was able to drive him, 1st to have coffee, and then to the eye clinic where he was then referred to the emergency department. No reported acute findings at the digital specialist. He denies any related headache or dizziness with the vision loss. Denies any facial droop or slurring of words, nor change in mentation. Denies any chest pain or shortness of breath. Denies recent fever chills sweats. Denies recent nausea vomiting diarrhea. Patient is a nonsmoker. Alcohol use is once monthly. Full code. His primary care provider is Dr. Warren. Review of Systems Narrative: REVIEW OF SYSTEMS: Complete review of systems performed and negative unless otherwise stated in HPI or below. 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, 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) Surgical History Status post four vessel coronary artery bypass ?Z95.1 - Presence of aortocoronary bypass graft (ICD-10) Status post cardiac pacemaker procedure ?Z95.0 - Presence of cardiac pacemaker (ICD-10) Status post transurethral resection of prostate ?Z90.79 - Acquired absence of other genital organ(s) (ICD-10) Status post ligation of left atrial appendage ?Z98.890 - Other specified postprocedural states (ICD-10) Status post excision of lipoma ?Z98.890 - Other specified postprocedural states (ICD-10) ?Z86.018 - Personal history of other benign neoplasm (ICD-10) Status post cataract extraction ?Z98.49 - Cataract extraction status, 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) Family History Other FH: coronary artery bypass surgery Social History Smoking Status: Former smoker Do you use any of these nicotine containing products: None How often do you have a drink containing alcohol: never AUDIT-C Alcohol total score: 0 Non-prescribed substance use: denies use Little interest or pleasure in doing things: not at all Feeling down, depressed, or hopeless: not at all Meds Home Medications and Allergies Home Medications ?Medication ?Instructions ?Recorded ?Confirmed ?Type albuterol 90 mcg/actuation aerosol 2 spray inhalation .Q4h Prn 03/03/22 12/24/23 History inhaler antiarthritic combination no.2 900 900 mg PO QDAY 03/03/22 12/24/23 History mg tablet (glucosamine-chondroitin) cholecalciferol (vitamin D3) 50 2,000 unit PO DAILY 03/03/22 12/24/23 History mcg (2,000 unit) capsule diphenhydramine HCl 25 mg tablet 25 mg PO .Bedtime as needed PRN 03/03/22 12/24/23 History lactobacillus combination no.9 4 4,000 mmu cells PO QDAY 03/03/22 12/24/23 History billion cell capsule (Adult 50 Plus Probiotic) lancets 33 gauge (BD Ultra Fine 03/03/22 12/24/23 History Lancets) latanoprost 0.005 % eye drops 0.005 drp ophthalmic (eye) DAILY 03/03/22 12/24/23 History omega-3 fatty acids-fish oil 340 1 cap PO QDAY 03/03/22 12/24/23 History mg-1,000 mg capsule (Fish Oil) vitamin B complex 1 tab PO QDAY 03/03/22 12/24/23 History folic acid 1 mg tablet 1 mg PO QDAY 03/14/23 12/24/23 History methotrexate sodium 2.5 mg tablet 15 mg PO QWEEK 03/14/23 12/24/23 History magnesium oxide 400 mg (241.3 mg 400 mg PO DAILY 09/04/23 12/24/23 History magnesium) tablet Allergies Allergy/AdvReac Type Severity Reaction Status Date / Time Cephalosporins Allergy Severe hives, Verified 12/24/23 11:18 black outs Exam Narrative: Exam Narrative: PHYSICAL EXAM General: Pleasant, conversant, NAD HEENT: Normocephalic, atraumatic, sclera white, EOMI, oral mucosa moist. In-depth eye exam not performed Cardiovascular: RRR, S1S2. No pitting edema Pulmonary: CTA bilaterally without rhonchi, rales, expiratory wheezes. No dyspnea Abdominal: Soft, nondistended, NTTP Neurological: Alert, answering questions appropriately, cranial nerves intact, no focal findings on neuro exam Extremities: No gross joint deformity or swelling. AROMI. Neurovascularly intact Skin: Warm, dry. Const: Vital Signs, click to edit/add: Vital Signs - 24 hr 01/31/24 15:41 Temperature 97.2 F L Pulse Rate [Left P ulse Oximeter] 87 Respiratory Rate 18 Blood Pressure [Le ft Upper Arm] 159/78 H Pulse Oximetry 96 Oxygen Delivery Me thod Room Air Hospitalist - H&P: Result Imaging CTA head/neck: Attestation: I have reviewed the pertinent imaging results. Radiologist's impression: CTA head: Unremarkable. No sign of occlusion or significant aneurysm CTA neck: Tortuous courses of the internal carotid arteries with multiple kinks but no definite dissection flap. No sign of dissection or significant stenosis CT scan - head: Attestation: I have reviewed the pertinent imaging results. Radiologist's impression: No acute intracranial hemorrhage. Apparent focal hypoattenuation within right paramedian occipital lobe (series 3, image 36). The ventricles are normal in size. There is atherosclerotic calcification of the carotid siphons and intracranial vertebral arteries. No abnormal extra-axial fluid collection is identified. Intact calvarium. Bilateral pseudophakia. Diffuse mucosal thickening within the right maxillary sinus. Impression: 1. Focal hypoattenuation within the right paramedian occipital lobe (series 3, image 36), potentially artifactual, however acute or subacute cortical infarct can not be excluded. 2. No acute intracranial hemorrhage. 3. Atherosclerotic calcification of the carotid siphons and intracranial vertebral arteries. Assessment and Plan Assessment and plan (1) CVA (cerebral vascular accident): Problem comment: Presenting with left visual changes described as progressively worsening tunnel vision (previous complete vision loss right eye r/t retinal tear) CT head: Focal hypoattenuation within the right paramedian occipital lobe (series 3, image 36), potentially artifactual, however acute or subacute cortical infarct can not be excluded. No acute intracranial hemorrhage. Atherosclerotic calcification of the carotid siphons and intracranial vertebral arteries CTA head/neck: Unremarkable. No sign of occlusion or significant aneurysm. Tortuous courses of the internal carotid arteries with multiple kinks, but no definite dissection flap. No sign of dissection or significant stenosis ED provider discussed with Tele Neurology, concern for embolic CVA, no evidence occluded vessels. Recommendation for local admission, further work up. Aware patient has a dual chamber pacemaker - no MRI recommended. ASA 81mg daily, received 324 in ED PT/OT/GREENSKEEPER Bedside swallow eval Telemetry ECHO Neurochecks Labs on admission including A1c, as well as lipids in a.m. Follow up with Tele Neurology tomorrow after completion of work up Status: Acute (2) Hypertension: Problem comment: Will allow for permissive HTN <220/110 Resume home medications 24-48 hours Status: Acute (3) Hyperlipidemia: Problem comment: Lipids ordered Pharmacy to confirm statin. May need to change medication and increase dose Status: Acute (4) ASCVD (arteriosclerotic cardiovascular disease): Problem comment: s/p 4 vessel bypass 09/20 ECHO 09/12/2021: Limited Echocardiogram performed 1. Normal LV size, mildly reduced global systolic function with an estimated EF of 45 - 50%. 2. Basal inferior segment, basal septum segment, anterior septum, and posterior wall are abnormal. 3. Right ventricular cavity size is moderately enlarged, global systolic RV function is severely reduced. 4. Moderately enlarged left atrium. 5. The aortic valve is sclerotic, mild stenosis and no regurgitation. 6. The mitral valve is sclerotic, mild mitral regurgitation. 7. Mild-moderate tricuspid regurgitation. 8. The inferior vena cava is dilated, respiratory size variation less than 50%, consistent with elevated right atrial pressure. 9. Echo contrast was administered to enhance visualization of all left ventricular segments Status: Acute (5) Atrial fibrillation: Problem comment: S/p atrial appendage ligation S/p dual chamber Pacemaker Implant 05/10/2021, last device check 12/17/23 Continue carvedilol. Not anticoagulated (previously on warfarin) Telemetry and Echo ordered Status: Acute (6) HFrEF (heart failure with reduced ejection fraction): Problem comment: S/p CABG 08/2021 Previous BNP 1309 ECHO 2021 as above, repeat ordered Continue torsemide, spironolactone when confirmed by pharmacy Status: Acute (7) Diabetes 1.5, managed as type 1: Problem comment: Previous A1c 7.1, repeat ordered Usual home dose Lantus is 38 units, will give 20 units tonight. Reports using 4-8 units insulin with meals Hold metformin. Continue glipizide when confirmed by pharmacy Glucose checks ACHS, prn, insulin sliding scale Status: Acute (8) Vision loss of right eye: Problem comment: CRVO, approximately 2000 Status: Acute (9) Rheumatoid arthritis: Problem comment: Right hand, with swelling involving the left hand and digits; treated with methotrexate and folic acid Followed by [facility], [facility] Status: Acute (10) Benign prostatic hyperplasia: Problem comment: Elevated PSA S/p TURP Pharmacy to confirm home medications (dutasteride) Status: Acute Plan Likely discharge tomorrow afternoon following completion of workup and Neurology recommendations, pending ongoing improvement Total Time Spent Total Time Spent: Total time spent caring for the patient today was 60 minutes. This includes time spent for the visit reviewing the chart, time spent during the visit, time spent after the visit and documentation and planning in coordination of care.
--- NOTE | 2024-01-31 20:10 | PC.NURSE ---
End of shift [id number] - Pt arrived from ED at approximately 1855. Up independently with standby assistance from wheelchair to bed. Denies pain, SOB, N/V. Pt alert, oriented, cooperative. Family at bedside. Tolerating RA and fluids.
[2024-01-31 20:16] LABS: Basophils Absolute Auto 0.04 K/uL (0.00-0.30); Basophils Percent Auto 0.4 % (0.0-3.0); Eosinophils Absolute Auto 0.27 K/uL (0.00-0.50); Eosinophils Percent Auto 2.8 % (0.0-7.0); Hemoglobin* 11.3 gm/dL (13.5-17.5); Immature Granulocytes Abs Auto 0.05 K/uL (0.00-0.30); Immature Granulocytes Pct Auto 0.5 %; Lymphocytes Percent Auto 14.5 % (20-44); Mean Corpuscular HGB Conc 31 gm/dL (32-36); Mean Corpuscular Hemoglobin 30 pg (26-34); Mean Corpuscular Volume 96 fL (80-100); Monocytes Percent Auto 6.5 % (0.0-11.0); Neutrophils Percent Auto 75.3 % (42.0-72.0); Platelet Count* 294 K/uL (140-440); RDW Coefficient of Variation % 16.5 % (11.5-15.5); Red Blood Count 3.74 m/uL (4.30-5.90); White Blood Count* 9.51 K/uL (4.50-11.00)
[2024-01-31 20:33] LABS: Albumin* 4.5 g/dL (3.3-5.0)
[2024-01-31 20:34] LABS: Chloride* 101 mmol/L (96-114); Potassium* 4.9 mmol/L (3.6-5.1); Sodium* 136 mmol/L (135-149)
[2024-01-31 20:36] LABS: Alkaline Phosphatase* 69 U/L (40-150); Anion Gap 9 mEq/L (7-15); Aspartate Amino Transferase* 20 U/L (12-35); Bilirubin Total* 0.4 mg/dL (0.1-1.5); Blood Urea Nitrogen* 32 mg/dL (7-30); Carbon Dioxide* 26 mmol/L (20-32); Creatinine* 1.5 mg/dL (0.5-1.5); Est. Creatinine Clearance* 37.33; Estimated Glomerular Filt Rate 47 ml/min; Total Protein* 7.3 g/dL (6.0-8.3)
[2024-01-31 20:37] LABS: Alanine Aminotransferase* 19 U/L (4-50); Calcium* 9.5 mg/dL (8.4-10.6); Glucose* 111 mg/dL (60-115)
[2024-01-31 20:39] LABS: Slide Review Reflex No
[2024-01-31] MEDS: carvediloL 6.25 MG TABLET PO (20:42)
[2024-01-31] MEDS: 0.9 % SODIUM CHLORIDE 1000 ml 1,000 ML 100 ML IV (20:43)
[2024-01-31] MEDS: INSULIN GLARGINE,HUM.REC.ANLOG 100 UNIT/ML INSULN.PEN 20 UNIT SUBCUT (20:44)
[2024-01-31] MEDS: SODIUM CHLORIDE 0.9 % (FLUSH) 10 ML SYRINGE 5 ML IVF (20:45)
[2024-01-31 21:24] LABS: Hemoglobin A1C* 6.8 % (0-5.6)
[2024-02-01 03:00] VITALS: BP 167/70; PULSE 78; RESP 20; O2SAT 95
[2024-02-01 03:27] VITALS: PULSE 70
--- NOTE | 2024-02-01 05:06 | PC.NURSE ---
[id number] Pt pleasant and cooperative, SBA to br, tolerating activity well. vision to L eye improving during shift, last check pt reports 90% back to baseline, no other deficits noted during neuro checks. permissive hypertension during shift. 140s-160s systolically.
[2024-02-01 06:09] LABS: Hematocrit 32.8 % (37.0-53.0); Hemoglobin* 10.3 gm/dL (13.5-17.5); Mean Corpuscular HGB Conc 31 gm/dL (32-36); Mean Corpuscular Hemoglobin 30 pg (26-34); Mean Corpuscular Volume 96 fL (80-100); Platelet Count* 286 K/uL (140-440); Red Blood Count 3.43 m/uL (4.30-5.90); White Blood Count* 8.65 K/uL (4.50-11.00)
[2024-02-01 06:15] LABS: Slide Review Reflex No
[2024-02-01 06:17] LABS: Chloride* 106 mmol/L (96-114); Potassium* 4.6 mmol/L (3.6-5.1); Sodium* 138 mmol/L (135-149)
[2024-02-01 06:19] LABS: Cholesterol* 107 mg/dL (90-199)
[2024-02-01 06:20] LABS: Anion Gap 6 mEq/L (7-15); Blood Urea Nitrogen* 29 mg/dL (7-30); Calcium* 9.2 mg/dL (8.4-10.6); Carbon Dioxide* 26 mmol/L (20-32); Creatinine* 1.2 mg/dL (0.5-1.5); Est. Creatinine Clearance* 46.67; Estimated Glomerular Filt Rate 62 ml/min; Triglycerides* 157 mg/dL (40-149)
[2024-02-01 06:21] LABS: HDL Cholesterol* 34 mg/dL (>=40); LDL Cholesterol Calculated 42 mg/dL (<100)
[2024-02-01 06:36] LABS: Glucose* 82 mg/dL (60-115)
[2024-02-01 07:00] VITALS: BP 145/66; PULSE 70; PULSE 71; RESP 20; TEMP 36.3; O2SAT 94
[2024-02-01] MEDS: SODIUM CHLORIDE 0.9 % (FLUSH) 10 ML SYRINGE 5 ML IVF (09:06)
[2024-02-01] MEDS: ASPIRIN 81 MG TAB.CHEW PO (09:06)
[2024-02-01] MEDS: carvediloL 6.25 MG TABLET PO (09:06)
[2024-02-01 11:00] VITALS: BP 145/65; PULSE 74; RESP 20; TEMP 36.6; O2SAT 93
--- NOTE | 2024-02-01 14:28 | PM.DS1 ---
DS: Providers Provider Date Seen: 02/01/24 Date of admission: 01/31/24 18:48 Primary care physician: Prashant Valdez MD Admitting Clinician: Sara Estevez MD Consults: OT, PT, Stroke Neurology Attending Physician on discharge: Vivien Velazquez MD Date of Discharge: 02/01/24 DS: Diagnosis Discharge Diagnosis (1) CVA (cerebral vascular accident): Status: Acute Problem details: - presented with left visual changes described as progressively worsening tunnel vision (previous complete vision loss right eye r/t retinal tear) CT head: Focal hypoattenuation within the right paramedian occipital lobe (series 3, image 36), potentially artifactual, however acute or subacute cortical infarct can not be excluded. No acute intracranial hemorrhage. Atherosclerotic calcification of the carotid siphons and intracranial vertebral arteries CTA head/neck: Unremarkable. No sign of occlusion or significant aneurysm. Tortuous courses of the internal carotid arteries with multiple kinks, but no definite dissection flap. No sign of dissection or significant stenosis - patient has a dual chamber pacemaker - no MRI recommended. - ASA 81mg daily, received 324 in ED - seen by therapies, no acute - no acute abnormalities on TTE - LDL 42, A1C 6.8 - seen by Stroke Neurology, recommended restarting Coumadin, bridge with 81mg ASA, close PCP f/u (2) Hypertension: Status: Acute Problem details: - permissive HTN during stay, resume home medications upon discharge (3) Hyperlipidemia: Status: Acute Problem details: - LDL 42 (4) ASCVD (arteriosclerotic cardiovascular disease): Status: Acute Problem details: - s/p 4 vessel bypass 09/20 - routine outpatient f/u with Cardiology (5) Atrial fibrillation: Status: Acute Problem details: S/p atrial appendage ligation S/p dual chamber Pacemaker Implant 05/10/2021, last device check 12/17/23 Continue carvedilol. Not anticoagulated (previously on warfarin), restarting Warfarin on d/c (6) HFrEF (heart failure with reduced ejection fraction): Status: Acute Problem details: S/p CABG 08/2021 Previous BNP 1309 ECHO 2021 as above, repeat ordered Continue torsemide, spironolactone when confirmed by pharmacy (7) Diabetes 1.5, managed as type 1: Status: Acute Problem details: - A1C 6.8 (8) Vision loss of right eye: Status: Acute Problem details: CRVO, approximately 1999 (9) Rheumatoid arthritis: Status: Acute Problem details: Right hand, with swelling involving the left hand and digits; treated with methotrexate and folic acid Followed by [facility], [facility] DS: Summary Hospital Course Hospital Course: Kt presented to the hospital with visual changes on 01/30. CT head in the ER revealed a hypodensity in the right medial occipital lobe, scattered atherosclerosis on CTA head neck. MRI unable to be completed secondary to pacemaker status. No acute changes on TTE, comorbidities remained stable. Seen by PT and OT, recommend no driving; no other needs identified. Patient seen by Stroke Neurology, recommended restarting Coumadin. Patient and agreeable. He is discharged home in stable condition on 02/01/2024 with close PCP follow-up (will need referral to Neurology for outpatient f/u at that time), INR in 2 days. Status at Discharge Functional status at discharge: independent ambulation Overall status at discharge: patient is back to baseline Time Spent with Patient Time attestation: Total time spent providing and/or coordinating discharge services: Time spent: Greater than 30 minutes Specific discharge activities: Neurology referral, medication reconciliation Exam Narrative: Exam Narrative: GEN: Alert HEENT: EOMIs bilaterally, no scleral icterus CV: Rate controlled atrial fibrillation R: LCTA bilaterally Ext: wwp, no concerning edema Skin: No concerning skin lesions or rashes on exposed skin Neuro: No focal deficits, no resting tremor, gait normal Psych: Appropriate Const: Vital Signs, click to edit/add: Vital Signs - 24 hr 01/31/24 15:41 01/31/24 16:00 01/31/24 16:30 Temperature 97.2 F L Pulse Rate Pulse Rate [Left P ulse Oximeter] 87 76 77 Pulse Rate [Pulse Oximeter] Respiratory Rate 18 16 16 Blood Pressure [Le ft Upper Arm] 159/78 H 136/72 145/87 H Blood Pressure [Ri ght Arm] Pulse Oximetry 96 99 99 Oxygen Delivery Me thod Room Air Room Air Room Air 01/31/24 17:00 01/31/24 17:30 01/31/24 18:00 Temperature Pulse Rate Pulse Rate [Left P ulse Oximeter] 75 70 78 Pulse Rate [Pulse Oximeter] Respiratory Rate 16 16 Blood Pressure [Le ft Upper Arm] 126/65 137/71 127/71 Blood Pressure [Ri ght Arm] Pulse Oximetry 98 98 [facility] Room [facility] Room Air 01/31/24 18:30 01/31/24 19:08 01/31/24 20:02 Temperature 97.6 F Pulse Rate Pulse Rate [Left P ulse Oximeter] 75 Pulse Rate [Pulse Oximeter] 74 81 Respiratory Rate 16 18 16 Blood Pressure [Le ft Upper Arm] 156/75 H Blood Pressure [Ri ght Arm] 142/67 H Pulse Oximetry 99 92 95 Oxygen Delivery [facility] Room Air Room Air Room Air 01/31/24 20:02 01/31/24 20:08 01/31/24 20:10 Temperature Pulse Rate Pulse Rate [Left P ulse Oximeter] Pulse Rate [Pulse Oximeter] 74 Respiratory Rate 16 16 Blood Pressure [Le ft Upper Arm] Blood Pressure [Ri ght Arm] Pulse Oximetry 95 Oxygen Delivery [facility] Room Air 01/31/24 23:00 01/31/24 23:00 02/01/24 03:00 Temperature Pulse Rate Pulse Rate [Left P ulse Oximeter] Pulse Rate [Pulse Oximeter] 86 86 78 Respiratory Rate 20 20 Blood Pressure [Le ft Upper Arm] Blood Pressure [Ri ght Arm] 141/69 H 167/70 H Pulse Oximetry 94 95 Oxygen Delivery [facility] Room Air Room Air 02/01/24 03:00 02/01/24 03:27 02/01/24 07:00 Temperature Pulse Rate 70 Pulse Rate [Left P ulse Oximeter] Pulse Rate [Pulse Oximeter] 78 71 Respiratory Rate Blood Pressure [Le ft Upper Arm] Blood Pressure [Ri ght Arm] Pulse Oximetry [facility] 02/01/24 07:00 02/01/24 07:00 02/01/24 07:00 Temperature 97.3 F L Pulse Rate 70 Pulse Rate [Left P ulse Oximeter] Pulse Rate [Pulse Oximeter] 71 71 Respiratory Rate 20 20 Blood Pressure [Le ft Upper Arm] Blood Pressure [Ri ght Arm] 145/66 H Pulse Oximetry 94 [facility] 02/01/24 11:00 02/01/24 11:00 Temperature 97.8 F Pulse Rate Pulse Rate [Left P ulse Oximeter] Pulse Rate [Pulse Oximeter] 74 74 Respiratory Rate 20 Blood Pressure [Le ft Upper Arm] Blood Pressure [Ri ght Arm] 145/65 H Pulse Oximetry 93 Oxygen Delivery Me thod Room Air DS: Data Data Completed and Pending Completed studies during hospitalization: CT in ED: Focal hypoattenuation within the right paramedian occipital lobe (series 3, image 36), potentially artifactual, however acute or subacute cortical infarct can not be excluded. Labs on day of discharge: Labs from last 24 hours 02/01/24 01/31/24 01/31/24 05:44 20:06 16:45 WBC 8.65 9.51 RBC 3.43 L 3.74 L Hgb 10.3 L 11.3 L Hct 32.8 L 36.0 L MCV 96 96 MCH 30 30 MCHC 31 L 31 L RDW Coeff of Anil 16.5 H Plt Count 286 294 Neut % (Auto) 75.3 H Lymph % (Auto) 14.5 L [place] % (Auto) 6.5 Eos % (Auto) 2.8 Baso % (Auto) 0.4 Neut # (Auto) 7.20 H Lymph # (Auto) 1.40 [place] # (Auto) 0.60 Eos # (Auto) 0.27 Baso # (Auto) 0.04 Abs Immat Gran (auto) 0.05 Imm/Tot Granulo (auto) 0.5 Sodium 138 136 Potassium 4.6 4.9 Chloride 106 101 Carbon Dioxide 26 26 Anion Gap 6 L 9 BUN 29 32 H Creatinine 1.2 1.5 Estimated Creat Clear 46.67 37.33 Estimated GFR 62 47 Glucose 82 111 Hemoglobin A1c 6.8 H Calcium 9.2 9.5 Total Bilirubin 0.4 AST 20 ALT 19 Alkaline Phosphatase 69 Total Protein 7.3 Albumin 4.5 Triglycerides 157 H Cholesterol 107 LDL Cholesterol, Calc 42 HDL Cholesterol 34 L POC Creatinine 1.8 H Discharge Plan Discharge Disposition: Home, Self-Care Date of Admission: 01/31/24 18:48 Attending Provider on Discharge: Vivien Velazquez Consulting Providers: Ana Mcclellan Primary Care Provider: Prashant Valdez Condition: Stable Anticipated Discharge Date/Time: 02/01/24 14:17 Discharge Medications: New warfarin [Jantoven] 5 mg Tablet 5 mg PO DAILYC Qty: 30 0RF aspirin [Children's Aspirin] 81 mg Tablet,Chewable 81 mg PO DAILY Qty: 30 0RF Continued magnesium oxide 400 mg (241.3 mg magnesium) tablet 400 mg PO DAILY cholecalciferol (vitamin D3) 50 mcg (2,000 unit) capsule 2,000 unit PO DAILY diphenhydramine HCl 25 mg tablet 25 mg PO HS PRN latanoprost 0.005 % drops 0.005 drp ophthalmic (eye) DAILY Patient Comments: RIGHT EYE Adult 50 Plus Probiotic 4 billion cell capsule 4,000 mmu cells PO DAILY Rx Instructions: administer with a meal glucosamine-chondroitin 900 mg tablet 900 mg PO DAILY Fish Oil 340-1,000 mg capsule 1 cap PO DAILY vitamin B complex Tablet 1 tab PO DAILY albuterol 90 mcg/actuation aerosol 2 spray inhalation Q4H PRN (DME) lancets [BD Ultra Fine Lancets] 33 gauge misc See Rx Instructions .Route Rx Instructions: As directed torsemide 20 mg tablet 20 mg PO QAM Qty: 90 3RF methotrexate sodium 2.5 mg tablet 15 mg PO QWEEK Rx Instructions: EVERY SUNDAY folic acid 1 mg tablet 1 mg PO DAILY celecoxib 200 mg capsule 200 mg PO DAILY glipizide 10 mg tablet extended release 24hr 10 mg PO DAILY simvastatin 20 mg tablet 20 mg PO HS allopurinol 200 mg tablet 200 mg PO DAILY Rx Instructions: 1/2 tablet daily for 10 days, then 1 tab daily orally UD; carvedilol 6.25 mg tablet 6.25 mg PO BID Qty: 180 3RF dutasteride 0.5 mg capsule 0.5 mg PO DAILY Qty: 90 3RF insulin lispro [Humalog KwikPen Insulin] 100 unit/mL insulin pen 1 sliding scale dose subcut USEASDIRECTD Qty: 15 3RF Rx Instructions: sliding scale 4 units before meals if sugar is 60-100, 6 units from 101-160, 8 units for 161-220, 10 units for 221-280, and 12 units for 281 or higher. (DME) OneTouch Ultra Test Strip See Rx Instructions .Route Qty: 100 3RF Rx Instructions: TEST FOUR TIMES DAILY. metformin 500 mg tablet extended release 24 hr 1,000 mg PO BID Qty: 360 1RF insulin glargine [Lantus Solostar U-100 Insulin] 100 unit/mL (3 mL) insulin pen 40 unit subcut QPM Qty: 30 6RF (DME) pen needle, diabetic [BD Ultra-Fine Short Pen Needle] 31 gauge x 5/16 needle See Rx Instructions .Route Qty: 100 3RF Rx Instructions: use daily spironolactone 50 mg tablet 50 mg PO BID Qty: 180 3RF Discharge Orders: Discharge Order (Routine); Ordered 02/01/24 Ordered By: Vivien Velazquez Patient Education: Warfarin (By mouth), Aspirin (By mouth), Stroke (DC) Additional Instructions: Start Coumadin today (5mg) and take once/day. You will take this WITH ASA 81mg once/day until your INR is >2. INR on Sunday at the hospital. See Dr. Valdez as scheduled for followup and to discuss hospital findings. Activity Level: Activity as Tolerated and No strenuous activity Discharge Diet: Regular Follow Up Appointments: Prashant Valdez MD [Primary Care Provider] - ([facility] INR on Sunday, 2023 @10:15am [facility] for follow-up with Dr. Valdez, 2023 @12:45pm. ) Forms: [employer] Info Instructions
--- NOTE | 2024-02-01 16:07 | PC.NURSE ---
Discharge Note: Pt a/o and able to verbalize needs. Moves well independently throughout his room. VSS, BP's mildly hypertensive. Pt denies pain or discomfort. He states visual symptoms he was experiencing on admission have completely resolved. ECHO this morning, results pending. Pt and his verbalized dissatisfaction with observation status. Front Desk Host explained pt did not meet inpatient criteria at this time. Neuro consult this afternoon and pt to begin Coumadin on discharge. Pt was discharged to home independently with his at 1540. Pt and his verbalized understanding of discharge instructions and follow up appointments.
== END 2024-02-01 15:05 | disposition home or self-care (01) ==
LOC: ED 18:28 → MEDSURG 18:49
PROVIDERS: Physician Assistant; Admitting Provider Family Medicine; Emergency Provider Family Medicine; PCP Family Medicine; Visit Provider Family Medicine
DX: I63.9 Cerebral infarction, unspecified (principal); H53.8 Other visual disturbances; I25.10 Atherosclerotic heart disease of native coronary artery without angina pectoris; I11.0 Hypertensive heart disease with heart failure; I50.21 Acute systolic (congestive) heart failure; E13.9 Other specified diabetes mellitus without complications; E78.5 Hyperlipidemia, unspecified; I48.91 Unspecified atrial fibrillation; M06.9 Rheumatoid arthritis, unspecified; N40.0 Benign prostatic hyperplasia without lower urinary tract symptoms; H35.7 Separation of retinal layers; Z79.4 Long term (current) use of insulin; Z79.84 Long term (current) use of oral hypoglycemic drugs; Z86.018 Personal history of other benign neoplasm; Z87.891 Personal history of nicotine dependence; Z87.11 Personal history of peptic ulcer disease; Z98.49 Cataract extraction status, unspecified eye; Z90.79 Acquired absence of other genital organ(s); Z95.1 Presence of aortocoronary bypass graft; Z95.0 Presence of cardiac pacemaker; Z98.890 Other specified postprocedural states
CPT/HCPCS: 36415; 70450; 70496; 70498; 80048; 80053; 80061; 82565; 82962; 83036; 85025; 85027; 93306; 96360; 96361; 96372; 97110; 97112; 97161; 97165; 97535; 99215; 99284; 99285; G0378; A9270; J1815; J7030; Q9967

== ENCOUNTER 2024-02-29 07:25 | Outpatient (RCR) | payer MEDICARE, OTHER, SELFPAY ==
--- NOTE | 2024-02-29 10:46 | PT.OPEX ---
Please review and sign the attached physical therapy evaluation, completed on 02/29/24. Thank you. PT [place] Outpatient Eval PT [facility] Outpatient Eval Start: 02/20/24 18:17 Freq: Status: Active Protocol: Document 02/29/24 07:11 TLQ (Rec: 02/29/24 08:29 TLQ [id number]) E-signed By Beverly Baeza DPT Physical Therapy Outpatient Evaluation Insurance Information Insurance Name Medicare B,[employer] Medical Diagnosis CVA Balance deficits Treating Diagnosis Impaired balance R26.81 Muscle weakness M62.81 Imaging Report Information Head CT at [facility] on 01/31/24 with the following impression: 1. Focal hypoattenuation within the right paramedian occipital lobe (series 3, image 36), potentially artifactual, however acute or subacute cortical infarct can not be excluded. 2. No acute intracranial hemorrhage. 3. Atherosclerotic calcification of the carotid siphons and intracranial vertebral arteries. Head CTA at [facility] on 01/31/24 with the following impression: No large vessel occlusion or significant intracranial stenosis. Neck CTA at [facility] on 01/31/24 with the following impression: 1. Moderate proximal right ICA stenosis, 60 percent by NASCET criteria, due to highly irregular, heavily calcified plaque. 2. Mild proximal left ICA stenosis, less than 50 percent by NASCET criteria. 3. Large indeterminate right thyroid nodule; ultrasound would be useful for further evaluation if not already performed. Referring MD Prashant Valdez MD Subjective Preferred Name Kt Meraz was hospitalized at [facility] 01/31/24-01/31 for possible CVA. 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 Since leaving the hospital he has not lost his balance, denies any falls. Does feel like he lurches at times when he's walking, can miss a step due to this, feels like this is related to his vision. Feels like his mobility is similar to what is was prior to his hospitalization. Does note that his left eyesight can slow him down at times. Only wears glasses for reading. Does not use any assistive devices for mobility. Sometimes uses thomason when walking to the bathroom at night. Has started going to the [employer] a few days a week to work on strength, uses a few weight machines and then does some walking in the pool. PMHx: T1 and T2DM, HTN, hyperlipidemia, ASCVD, A-fib, HFrEF, RA, COPD, asthma, depression, pacemaker, allergies, right visual impairment *02/29/24 evaluation started late due to patient completing initial paperwork upon arrival to clinic* Date of Last Physician Visit 02/06/24 Current Work Status Retired Precautions Therapy Limitations/Systems Review Vision,Hearing Objective Other/Pertinent Objective BALANCE 30 second STS: 15 reps with arms crossed (<11 reps for males ages 75-79 indicates increased risk of falls) TU seconds (>13.5 seconds indicates increased risk of falls De La Garza Balance Scale: 50/56 (<45 /56 indicates increased risk of falls) Tandem stance: able to step IND, holds up to 8 seconds GAIT ambulates without use of A.D., mild Trendelenburg STAIR NAVIGATION reciprocal pattern with use of 1 or 2 railings 4-ITEM DGI: 11/12 (<10/12 indicates increased risk of falls) Horizontal head turns (2), lateral path deviation Vertical head turns (3) Gait on level surfaces (3) Changes in gait speed (3) BALANCE/CTSIB Romberg eyes open firm surface : 30 seconds Romberg eyes closed firm surface: 30 seconds, mild postural sway Romberg eyes open foam surface : 30 seconds, mild postural sway Romberg eyes closed form surface: 30 seconds, mild- moderate postural sway STRENGTH hip flexion: R 4, L 4+ hip extension: 4+ BL hip abduction: 5 BL hip adduction: 5 BL knee flexion: 5 BL knee extension: 5 BL ankle dorsiflexion: 5 BL plantarflexion: good contraction BL Assessment Assessment/Impression Kt is a 78-year-old male who presents to physical therapy today for an assessment of his balance following a CVA on 01/31/24. Patient was hospitalized at [facility] from 01/31/24-02/01/24, imaging of head and neck taken with impressions indicated above. As a result of his CVA, Kt reports L visual changes , has prior medical history of R visual impairment. At the time of today's evaluation he is not relying on an A.D. for mobility, he states his mobility and balance is near his pre-CVA baseline, denies any trips or falls. Kt enjoys using the recumbent bike, weight equipment, and pool for physical activity at the [facility] - reports attendance as being 2-3 days per week. Completed the following static and dynamic balance assessments in clinic today without significant findings: 30 second STS, TUG, De La Garza Balance Scale, CTSIB, and 4-item DGI. It should be noted the patient had difficulty maintaining tandem stance and during gait with horizontal head turns, however he did not experience LOB. Kt mentions his only difficulty with balance can be when he gets up to use the bathroom in the middle of the night. We discussed safe environment set up: remove any rugs for reduced tripping hazard, can utilize motion- sensor night lights to provide visual input when ambulating in the dark. At this time Kt does not require skilled physical therapy interventions for safety, performance on balance assessments does not place him at an increased risk for falls and patient reports being at baseline mobility status. Should he continue to have L eye visual impairment, I encouraged him to return to his PCP, may benefit from a vision therapy assessment. These examination findings were reviewed with the patient in clinic today, he verbalized understanding to all education that was provided. Evaluation only, no further physical therapy at this time. Plan of Care Rehabilitation Potential Good Physical Therapy Goals Evaluation only at this time Frequency/Duration Evaluation only at this time Evaluation Billing Untimed Code Treatment Minutes 40 Complexity Low Certification Information Initial Certification Date 02/29/24 Provider Signature Required Yes Provider Signature Shows Agreement With POC & Medical Necessity Physician NPI Number Write NPI# Here Physician Comment/Change : Physician Signature & Date Requested Please Sign/Date Here
== END 2024-04-14 08:34 | disposition home or self-care (01) ==
PROVIDERS: PCP Family Medicine; Visit Provider Family Medicine
DX: I63.9 Cerebral infarction, unspecified (principal); Z51.89 Encounter for other specified aftercare
CPT/HCPCS: 97161

== ENCOUNTER 2024-03-05 14:10 | Outpatient (CLI) | payer MEDICARE, OTHER, SELFPAY ==
--- OUTSIDE RECORDS SUMMARY | 2024-03-05 14:18 | XMS_ITS | Encounter Summary ---
Author Organization [facility] Address [address] [place] [id number] Care Team Providers Care Perioperative Assistant Name Role Phone Needs Pcp, Assignment Primary Care Provider Reason for Visit * Reason Comments Refill methotrexate 2.5 MG tablet [Pharmacy Med Name: METHOTREXATE 2.5MG TABLETS - YELLOW] Encounter Details Date Type Department Care Team (Late st Contact Info) Description 02/05/2024 Refill Rheumatology at [facility] [address] [address] [place], [place] [id number] Desilet, Luke W, DO [address] [place], [place] [phone] Refill (methotrexate 2.5 MG tablet [Pharmacy Med Name: METHOTREXATE 2.5MG TABLETS - YELLOW]) Social History Tobacco Use Types Packs/Day Years Used Date Smoking Tobacco: Former Cigarettes Smokeless Tobacco: Never Alcohol Use Standard Drinks/Week Comments Yes 1 (1 standard drink = 0.6 oz pure alcohol) Drinks very infrequently, likely less than once per month. Sex and Gender Information Value Date Recorded Sex Assigned at Not on file Gender Identity Not on file Sexual Orientation Not on file documented as of this encounter Nursing Notes * Gisele Beckwith RN - 02/05/2024 3:00 PM CDT Disp Refills Start End methotrexate 2.5 MG tablet 72 Tablet 0 02/05/2024 05/05/2024 Sig - Route: Take 6 Tablets (15 mg) by mouth once every week. - Oral Sent to pharmacy as: Methotrexate Sodium 2.5 MG Oral Tablet Class: E-Prescribing Date/Time Signed: 02/05/2024 14:22 E-Prescribing Status: Receipt confirmed by pharmacy (02/05/2024 2:23 PM CDT) Duplicate request, denied. * Umesh Brennan Xrwcomm - 02/05/2024 2:58 PM CDT methotrexate 2.5 MG tablet [Pharmacy Med Name: METHOTREXATE 2.5MG TABLETS - YELLOW] Immunosuppressants -> The request contains a note from the pharmacy. -> ALT and Cr are overdue (performed 7 months ago, required every 2 months) -> AST is overdue (performed over 11 months ago, required every 2 months) -> HCT is abnormal (33.4 % lies outside 41.0 % - 53.0 %) -> HGB is abnormal (10.7 g/dL lies outside 13.5 g/dL - 17.0 g/dL) -> RBC is abnormal (3.53 m/cmm lies outside 4.5 m/cmm - 5.9 m/cmm) Last qualifying visit: 07/24/2023 (in Rheumatology) Next scheduled visit: 05/08/2024 (in Rheumatology) Last ordered by CHEL MOTT W: 02/05/2024 (0 days ago) QTY: 72, Refills: 0, Sig: take 6 tablets (15 mg) by mouth once every week. (changed but equivalent) Cr: 1.26 mg/dL on 07/24/2023 AST: 13 U/L on 02/28/2023 ALT: 14 U/L on 07/24/2023 HCT: 33.4 % on 02/05/2024 HGB: 10.7 g/dL on 02/05/2024 PLT: 309 k/cmm on 02/05/2024 RBC: 3.53 m/cmm on 02/05/2024 WBC: 8.5 k/cmm on 02/05/2024 [facility] Embedded Refills, Reference: [id number], 02/05/2024 2:58:07 PM CDT, Pool: ROSEMARY BELL REFDEYSI [[id number]] ([id number]) * Umesh Brennan Xrwchristina - 02/05/2024 2:58 PM CDT The following lab order(s) may be associated with the following Patient Result Comment (Entered by Chel Mott DO at 03/01/2023 7:12 AM): COMPREHENSIVE METABOLIC PANEL Good Quinones, I have received and reviewed your lab results from your recent rheumatology clinic visit.As we discussed on the phone, your creatinine (a measure of kidney function) and potassium are slightly elevated. I recommend you stay hydrated and avoid NSAIDs (Aleve, naproxen, ibuprofen, Motrin). I have ordered a lab for you to get this rechecked in [place] in approximately 1 week on 03/07/2023.Your other labs are w ithin acceptable limits. Your hepatitis B and C tests are negative. Your markers of inflammation (ESR and CRP) and white blood cell count are slightly elevated. Inflammatory markers likely are elevated due to rheumatoid arthritis and white blood cell count likely slightly elevated due to steroid use.Let me know if you have any questions or concerns.Chel Mott DO37:12 AM documented in this encounter Plan of Treatment Upcoming Encounters Date Type Department Care Team (Late st Contact Info) Description 05/08/2024 10:45 AM BASTING MACHINE OPERATOR Appointment Rheumatology at [facility] [place] [address] [address] [address] [place] [address] DesiletChel W, DO [address] [place] [address] 07/15/2024 3:00 PM BASTING MACHINE OPERATOR Appointment [facility] [address] [place] [address] DesileChel walters, DO [address] [place], [place] [phone] documented as of this encounter Visit Diagnoses Not on filedocumented in this encounter Care Teams Perioperative Assistant Relationship Specialty Start Date End Date Needs Pcp, [place] [address] PCP - General 04/10/23 documented as of this encounter
--- OUTSIDE RECORDS SUMMARY | 2024-03-05 14:18 | XMS_ITS | Encounter Summary ---
Author [facility] Address [address] [place] [address] Care Team Providers Care Mill Crane Operator Name Role Phone Needs Pcp, Assignment Primary Care Provider [phone] Encounter Details Date Type Department Care Team (Late st Contact Info) Description 02/05/2024 2:40 PM CDT Lab Visit [facility] [address] [place] [address] 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); 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 use [...] st Contact Info) Description 05/08/2024 10:45 AM COLLECT ON DELIVERY CLERK Appointment Rheumatology at [facility] [address] [address] [address] [place] [address] Desilet, Opalke W, DO [address] [place] [address] 07/15/2024 3:00 PM COLLECT ON DELIVERY CLERK Appointment [facility] [address] [place] [address] Desilet, Luke W, DO [address] [place], [place] [phone] documented as of this encounter Procedures Procedure Name Priority Date/Time Associated Diagnosis Comments CBC AND DIFFERENTIAL PANEL Routine 02/05/2024 2:48 PM CDT 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) 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 use CREATININE / GFR Routine 02/05/2024 2:48 PM CDT 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) 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 use COMPLETE BLOOD COUNT-W/DIFF Routine 02/05/2024 2:48 PM CDT 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) 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 use ALT (SGPT) Routine 02/05/2024 2:48 PM CDT 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) 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 use ALBUMIN Routine 02/05/2024 2:48 PM CDT 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) 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 use documented in this encounter Results * (ABNORMAL) Complete Blood Count-W/Diff (02/05/2024 2:48 PM CDT) WBC 8.5 3.5 - 10.5 x10(9)/L 02/05/2024 2:51 PM CDT [facility] RBC 3.53(L) 4.32 - 5.72 x10(12)/L 02/05/2024 2:51 PM T [facility] Hemoglobin 10.7(L) 13.5 - 17.5 g/dL 02/05/2024 2:51 PM CDT [facility] HCT 33.4(L) 38.8 - 50.0 % 02/05/2024 2:51 PM [facility] MCV 94.6 80.0 - 100.0 fL 02/05/2024 2:51 PM CDT [facility] MCH 30.3 27.6 - 33.3 pg 02/05/2024 2:51 PM CDT [facility] MCHC 32.0 31.5 - 35.2 g/dL 02/05/2024 2:51 PM [facility] RDW 16.4(H) 11.9 - 15.5 % 02/05/2024 2:51 PM T [facility] Platelets 309 150 - 450 x10(9)/L 02/05/2024 2:51 PM T [facility] Automated NRBC 0 <=0 /100 WBC 02/05/2024 2:51 PM T [facility] Neutrophil Absolute 6.6 1.7 - 7.0 10(9)/L 02/05/2024 2:51 PM T [facility] Lymphocyte Absolute 1.0 1.0 - 4.8 10(9)/L 02/05/2024 2:51 PM [facility] Monocyte Absolute 0.6 0.2 - 0.9 10(9)/L 02/05/2024 2:51 PM T [facility] Eosinophil Absolute 0.3 0.0 - 0.5 10(9)/L 02/05/2024 2:51 PM [facility] Basophil Absolute 0.1 0.0 - 0.3 10(9)/L 02/05/2024 2:51 PM [facility] Immature Granulocyte % 0.4 0.0 - 0.5 % 02/05/2024 2:51 PM [facility] Blood Venipuncture / Unknown 02/05/2024 2:48 PM CDT 02/05/2024 2:48 PM CDT Luke W Desilet DO LAB_1 [facility] [address] [place] [id number] * (ABNORMAL) Creatinine / GFR (02/05/2024 2:48 PM CDT) Creatinine 1.48(H) 0.73 - 1.18 mg/dL 02/05/2024 4:03 PM T [facility] GFR, Estimated 48(L) >60 mL/min/1.7 3m2 02/05/2024 4:03 PM T [facility] Blood Venipuncture / Unknown 02/05/2024 2:48 PM CDT 02/05/2024 2:48 PM CDT Narrative [facility] - 02/05/2024 4:03 PM CDT The National Kidney Disease Education Program suggests measuring Cystatin C in patients with eGFRcrea of 45 to 59 ml/min/1.73^2 who do not have other markers of kidney damage (i.e. elevated urine Albumin/Creatinine Ratio or a prior Cystatin C confirming the presence of chronic kidney disease). Idris W Desilet DO LAB_1 Performing Organization Address [facility] Co de Phone Number [facility] [address] [place] [address] * ALT (SGPT) (02/05/2024 2:48 PM CDT) ALT (SGPT) 14 <=55 U/L 02/05/2024 4:03 PM CDT [facility] Blood Venipuncture / Unknown 02/05/2024 2:48 PM CDT 02/05/2024 2:48 PM CDT OpalApozy Desilet DO LAB_1 Performing Organization Address [facility] Phone Number [facility] [address] [place] [address] * (ABNORMAL) Albumin (02/05/2024 2:48 PM CDT) Albumin 3.4(L) 3.5 - 5.0 g/dL 02/05/2024 4:03 PM CDT [facility] Blood Venipuncture / Unknown 02/05/2024 2:48 PM CDT 02/05/2024 2:48 PM CDT Biorasisilet DO LAB_1 Performing Organization Address [facility] de Phone Number [address] documented in this encounter Visit Diagnoses Diagnosis 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) 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 use Encounter for long-term (current) use of other medications documented in this encounter Care Teams Mill Crane Operator Relationship Specialty Start Date End Date Needs Pcp, [place] [address] PCP - General 04/10/23 documented as of this encounter
--- OUTSIDE RECORDS SUMMARY | 2024-03-05 14:18 | XMS_ITS | Clinical Summary ---
Author Organization Formerly [facility] Address [address] [place] [address] Care Team Providers Care Licensed Life And Health Agent Name Role Phone Needs Pcp, Assignment Primary Care Provider [phone] Source Comments You are receiving this document [...] for each transition of care or referral. [facility] Allerg[facility] Active Allergy Reactions Criticality Noted Date Comments Cephalosporins Hives High 02/28/2023 Medications Medication Sig Dispensed Refills Start Date End Date Status metFORMIN XR (GLUCOPHAGE XR) 500 MG 24 hour release tablet Take 2 Tablets (1,000 mg) by mouth two times a day. 3 Active glipiZIDE (GLUCOTROL) 5 MG tablet Take 1 Tablet (5 mg) by mouth two times a day before meals. Active simvastatin (ZOCOR) 20 MG tablet Take 1 Tablet (20 mg) by mouth daily at bedtime. 3 Active torsemide (DEMADEX) 20 MG tablet Take 1 Tablet (20 mg) by mouth daily. Active spironolactone (ALDACTONE) 50 MG tablet Take 1 Tablet (50 mg) by mouth two times a day. 3 Active MAGNESIUM OXIDE 400 (240 Mg) MG tablet Take 1 Tablet (400 mg) by mouth daily. 3 Active B-D ULTRAFINE III SHORT PEN 31G X 8 MM needle Inject subcutaneously daily. 3 Active aspirin 81 MG chewable tablet Chew [...] % active Active GLUCOSAMINE CHONDROITIN COMPLX OR Glucosamine-Chondro itin Oral 250 mg-200 mg active Active Ferrous Sulfate Dried (FERROUS SULFATE CR OR) Ferrous Sulfate Oral active Active Cholecalciferol 50 MCG (2000 UT) TBDP Cholecalciferol Oral active Active Albuterol Sulfate, sensor, 108 (90 Base) MCG/ACT AEPB Albuterol HFA Inhaler 90 mcg/actuation active Active LANTUS SOLOSTAR 100 UNIT/ML pen Taking 32 units nightly 3 Active folic acid 1 MG tablet Take 1 Tablet (1 mg) by mouth daily. 90 Tablet 3 4 025 Active methotrexate 2.5 MG tablet Take 6 Tablets (15 mg) by mouth once every week. 72 Tablet 4 024 Active warfarin 5 MG tablet Managed by outside facility/provider 4 Active folic acid 1 MG tablet Take 1 Tablet (1 mg) by mouth daily. 90 Tablet 3 3 024 Discontinued(*M ed change OR same med OR reorder, new dose/directions ) warfarin 5 MG tablet Take 1.5 Tablets (7.5 mg) by mouth daily. 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 Overview (07/24/2023): WHEELER to LAD, Saphenous vein graft sequential to OM and D1, Saphenous vein graft to PDA CAD in [place] artery 08/25/2021 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 Dyslipidemia 08/10/2021 Abnormal nuclear stress test 08/10/2021 Abdominal aortic aneurysm (AAA) without rupture 05/09/2021 Elevated PSA 10/13/2015 Erectile dysfunction 10/13/2015 Encounters Date Type Department Care Team Description 02/06/2024 Telephone [facility] [id number] [address] [place] [address] [phone] Provider, Not On File 02/05/2024 2:40 PM CDT Lab Visit [facility] [address] [place] [id number] 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); 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 use 02/05/2024 2:15 PM CDT Office Visit Rheumatology at [address] [address] Desilet, Luke W, DO 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); 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 use; Stage 3a chronic kidney disease (HRC) 02/05/2024 Refill Rheumatology at [place] [address] [place] [id number] Desilet, Luke W, DO Refill (methotrexate 2.5 MG tablet [Pharmacy Med Name: METHOTREXATE 2.5MG TABLETS - YELLOW]) from Last 3 Months Immunizations Name Administration Dates Next Due Flu Vac (3+ yrs) 03/20/2014, 2,02/23/2011, 010,06/02/2008,06/03/2007,05/16/2005, Flu Vac Preserv Free (3+yrs) 04/23/2013,03/24/20 09 [id number] 06/30/2009 HepA Adult (19+ yrs) 12/07/1999 HepB Adult (Engerix-B, 20+ y rs, 3 dose series) 01/05/2000,12/07/1999 IPV (Polio) 12/07/1999 Influenza IIV3 (Trivalent) F luzone Highdose, 65+ Yrs (72521) 04/16/2019,04/09/2018,03/01/2017, 016,03/18/2015 Influenza IIV4 (Quadrivalent ) 0.5mL (52391) 04/19/2021 Influenza IIV4 (Quadrivalent ) Fluad, 65+ Yrs 03/14/2022 Influenza IIV4 (Quadrivalent ) Fluzone, 65+ Yrs 04/03/2023,04/13/2021,03/18/2020 Moderna COVID-19 12+ 04/03/2023 PCV13 (Prevnar) 10/07/2014 PPSV23 (Pneumovax) [...] Sign Reading Time Taken Comments Blood Pressure 140/65 02/05/2024 2:07 PM CDT Pulse 88 02/05/2024 2:07 PM CDT Temperature - - Respiratory Rate - - Oxygen Saturation - - Inhaled Oxygen Concentration - - Weight 95.4 kg (210 lb 4.8 oz) 02/05/2024 2:07 P M CDT Height 170.2 cm (5' 7) 04/10/2023 10:06 AM CDT Body Mass Index 32.94 04/10/2023 10:06 AM CDT Plan of Treatment Upcoming Encounters Date Type Department Care Team (Late st Contact Info) Description 05/08/2024 10:45 AM COMMUNITY HEALTH OUTREACH WORKER Appointment Rheumatology at [facility] [place] [address] [place] [address] [place] [address] Desilet, Luke W, DO [address] [place], [place] [address] 07/15/2024 3:00 PM COMMUNITY HEALTH OUTREACH WORKER Appointment [facility] [address] [place] [address] Desilet, Luke W, DO [address] [place], [place] [phone] Health Maintenance Due Date Last Done Comments Diabetes: Eye Exam 1945 Diabetes: Foot Exam 1945 Diabetes: Lipid Panel 1945 Diabetes: Urine Microalbumin 1945 Medicare Annual Wellness Visit 1945 HepA (2 of 2 - Risk 2-dose series) 06/07/2000 12/07/1999 HepB (3) 06/07/2000 01/05/2000, 12/07/1999 Diabetes: HGBA1C 02/24/2022 11/24/2021 COVID-19 Vaccine ( season) 2024 04/03/2023, 03/14/2022, 12/16/2021, Additional history exists Influenza (#1) 2024 04/03/2023, 03/02, 04/19/2021, Additional history exists Diabetes: Creatinine 02/04/2025 02/05/2024, 07/24/2023, 04/10/2023, Additional history exists DTaP/Tdap/Td (4 - Tdap) [...] Associated Diagnosis Comments COMPLETE BLOOD COUNT-W/DIFF Routine 02/05/2024 2:48 PM CDT 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) 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 use CBC AND DIFFERENTIAL PANEL Routine 02/05/2024 2:48 [...] rheumatoid factor (HRC) 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 use HEPATITIS C ANTIBODY, WITH REFLEX Routine 02/28/2023 9:50 AM CDT 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 use from Last 3 Months or Most Recently Relevant to Health Maintenance Results * (ABNORMAL) Creatinine / GFR (02/05/2024 2:48 PM CDT) Creatinine 1.48(H) 0.73 - 1.18 mg/dL 02/05/2024 4:03 PM T [facility] GFR, Estimated 48(L) >60 mL/min/1.7 3m2 02/05/2024 4:03 PM T [facility] Blood Venipuncture / Unknown 02/05/2024 2:48 PM CDT 02/05/2024 2:48 PM CDT [facility] LABORATORY - 02/05/2024 4:03 PM CDT The National Kidney Disease Education Program suggests measuring Cystatin C in patients with eGFRcrea of 45 to 59 ml/min/1.73^2 who do not have other markers of kidney damage (i.e. elevated urine Albumin/Creatinine Ratio or a prior Cystatin C confirming the presence of chronic kidney disease). Luke W Desilet DO LAB_1 Performing Organization Address City/State/[facility] Co de Phone Number [facility] [address] [place] [address] * (ABNORMAL) Complete Blood Count-W/Diff (02/05/2024 2:48 PM CDT) WBC 8.5 3.5 - 10.5 x10(9)/L 02/05/2024 2:51 PM CDT [facility] RBC 3.53(L) 4.32 - 5.72 x10(12)/L 02/05/2024 2:51 PM T [facility] Hemoglobin 10.7(L) 13.5 - 17.5 g/dL 02/05/2024 2:51 PM T [facility] HCT 33.4(L) 38.8 - 50.0 % 02/05/2024 2:51 PM [facility] MCV 94.6 80.0 - 100.0 fL 02/05/2024 2:51 PM CDT [facility] MCH 30.3 27.6 - 33.3 pg 02/05/2024 2:51 PM T [facility] MCHC 32.0 31.5 - 35.2 g/dL 02/05/2024 2:51 PM T [facility] RDW 16.4(H) 11.9 - 15.5 % 02/05/2024 2:51 PM CDT [facility] Platelets 309 150 - 450 x10(9)/L 02/05/2024 2:51 PM T [facility] Automated NRBC 0 <=0 /100 WBC 02/05/2024 2:51 PM T [facility] Neutrophil Absolute 6.6 1.7 - 7.0 10(9)/L 02/05/2024 2:51 PM CDT [facility] Lymphocyte Absolute 1.0 1.0 - 4.8 10(9)/L 02/05/2024 2:51 PM CDT [facility] Monocyte Absolute 0.6 0.2 - 0.9 10(9)/L 02/05/2024 2:51 PM CDT [facility] Eosinophil Absolute 0.3 0.0 - 0.5 10(9)/L 02/05/2024 2:51 PM CDT [facility] Basophil Absolute 0.1 0.0 - 0.3 10(9)/L 02/05/2024 2:51 PM CDT [facility] Immature Granulocyte % 0.4 0.0 - 0.5 % 02/05/2024 2:51 PM CDT [facility] Blood Venipuncture / Unknown 02/05/2024 2:48 PM CDT 02/05/2024 2:48 PM CDT Lu W Desilet DO LAB_1 Performing Organization Address [facility] Co de Phone Number [facility] [address] [place] [address] * ALT (SGPT) (02/05/2024 2:48 PM CDT) ALT (SGPT) 14 <=55 U/L 02/05/2024 4:03 PM CDT [facility] Blood Venipuncture / Unknown 02/05/2024 2:48 PM CDT 02/05/2024 2:48 PM CDT LuCrosswise Desilet DO LAB_1 Performing Organization Address [facility]/ZIP Co de Phone Number [facility] [address] [place] [address] * (ABNORMAL) Albumin (02/05/2024 2:48 PM CDT) Pathologist [facility] Albumin 3.4(L) 3.5 - 5.0 g/dL 02/05/2024 4:03 PM CDT [facility] Blood Venipuncture / Unknown 02/05/2024 2:48 PM CDT 02/05/2024 2:48 PM CDT Idris Brink Desilet DO LAB_1 [facility] [address] [place] [address] * Hepatitis C Antibody, with Reflex (02/28/2023 9:50 AM CDT) [facility] Hepatitis C Antibody Negative (Non Reactive) Negative (Non Reactive) 02/28/2023 2:22 PM CDT [facility] Comment:Antibodies to HCV no t detected. Does not exclude the possiblity of exposure to HCV. Blood Venipuncture / Unknown 02/28/2023 9:50 AM CDT 02/28/2023 9:50 AM CDT Idris Frontstartilet DO LAB_1 [facility] [address] from Last 3 Months or Most Recently Relevant to Health Maintenance Care Teams Licensed Life And Health Agent Relationship Specialty Start Date End Date Needs Pcp, [place] [address] PCP - General 04/10/23
--- OUTSIDE RECORDS SUMMARY | 2024-03-05 14:18 | XMS_ITS | Encounter Summary ---
Author Organization [facility] Address [address] [place] [address] Care Team Providers Care Steward/Stewardess Chief Cargo Vessel Name Role Phone Needs Pcp, Assignment Primary Care Provider Encounter Details Date Type Department Care Team (Late st Contact Info) Description 02/06/2024 Telephone [facility] [id number] [address] [place] [phone] Provider, Not On File [address] [place] [address] Social History Tobacco Use Types Packs/Day Years [...] as of this encounter Nursing Notes * Marianna Rodríguez, RN - 02/06/2024 8:56 AM CDT Chart reviewed. Patient remains on the anticoagulant, but care is managed by an outside clinician/health system: Change the anticoagulant to historical documented in this encounter Plan of Treatment Upcoming Encounters Date Type Department Care Team (Late st Contact Info) Description 05/08/2024 10:45 AM MICROSOFT SYSTEMS ENGINEER Appointment Rheumatology at [facility] [address] [place] [id number] Desilet, Idris W, DO [address] [place], [place] [phone] 07/15/2024 3:00 PM MICROSOFT SYSTEMS ENGINEER Appointment [facility] [address] [place] [address] Idris Torrez DO [address] [place], [place] [phone] documented as of this encounter Visit Diagnoses Not on filedocumented in this encounter Care Teams Steward/Stewardess Chief Cargo Vessel Relationship Specialty Start Date End Date Needs Pcp, Assignment [place], [place] [id number] PCP - General 04/10/23 documented as of this encounter
--- OUTSIDE RECORDS SUMMARY | 2024-03-05 14:19 | XMS_ITS | Clinical Summary ---
Author Organization [facility] Address [place], [place] [address] Care Team Providers Care Marble Worker Name Role Phone Prashant Valdez MD Primary Care Provider [phone] Allergies Active Allergy Reactions Criticality Noted Date [...] type, unspecified whether angina present, unspecified whether [place] or transplanted heart Place 1 Tablet (0.4 [...] Insulin 100 unit/mL inpn pen 05/04/2023 Active aspirin chewable 81 mg chewable tablet [...] EVERY DAY 90 Tablet 1 10/29/2023 Active folic acid 1 mg tablet Take 1 mg by mouth. 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 Overview: WHEELER to LAD, Saphenous vein graft sequential to OM and D1, Saphenous vein graft to PDA CAD in [place] artery 08/25/2021 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 Abnormal nuclear stress test 08/10/2021 Dyslipidemia 08/10/2021 Type 2 diabetes mellitus wit h hyperglycemia, without long-term current use of insulin 05/09/2021 Abdominal aortic aneurysm (AAA) without rupture 05/09/2021 Permanent atrial fibrillation 01/24/2019 Elevated PSA 10/13/2015 Erectile dysfunction 10/13/2015 HTN (hypertension) 06/02/2015 Gastric ulcer 06/23/2010 Overview: EGD 06/2010 ulcers Encounters Date Type Department Care Team Description 02/09/2024 Transcribe Orders [facility] [address] [place] [address] Prashant Valdez MD 02/06/[address] [facility] [address] [facility] [address] [facility] [address] [place] [address] Mary Stoll NP Questions; Hospital F/U 02/02/2024 Orders Only [facility] Scanner 1 scan: (1-Ord) [facility], MULTIPLE LABS, 02/02/2024 02/01/2024 11:00 AM CDT Ancillary Procedure [facility] [address] [place] [address] 02/01/2024 Office Visit [facility] [address] [facility] [place] [address] Ana Mcclellan MD 01/31/2024 Orders Only [facility] Scanner 1 scan: (1-Ord) [facility], ANGIO HEAD, 01/31/2024 01/31/2024 Orders Only [facility] Scanner 1 scan: (1-Ord) [facility], ANGIO NECK, 01/31/2024 from Last 3 Months Immunizations Name Administration [...] Comments Blood Pressure 138/60 05/08/2023 12:49 PM PROGRAM SPECIALIST Pulse 84 05/08/2023 12:49 PM PROGRAM SPECIALIST Temperature 36.9 ??C (98.4 ??F) 09/17/2021 7:47 AM CD T Respiratory Rate 19 09/23/2021 1:02 PM CDT Oxygen Saturation 96% 05/08/2023 12:49 PM PROGRAM SPECIALIST Inhaled Oxygen Concentration - - Weight 93.4 kg (206 lb) 05/08/2023 12:49 PM PROGRAM SPECIALIST Height 170.2 cm (5' 7) 05/08/2023 12:49 PM PROGRAM SPECIALIST Body Mass Index 32.26 05/08/2023 12:49 PM PROGRAM SPECIALIST Plan of Treatment Upcoming Encounters Date Type Department Care Team (Late st Contact Info) Description 03/13/2024 1:30 PM CDT Office Visit [facility] [address] [place] [address] Mary Stoll, JUANCARLOS [address] [place] [address] 04/17/2024 Cardiac Device Check [facility] [phone] Health Maintenance Due Date Last Done Comments Depression screening for age 12+ 1956 Hepatitis C screening for ag e 18-79 1962 RSV vaccine for adults or (1 - 1-dose 60+ series) 2004 Medicare Wellness for age 65+ 2009 Zoster (shingles) series for age 50+ (2 of 3) 02/24/2011 12/30/2010 Tetanus booster 06/02/2018 06/02/2008 COVID-19 vaccine series ( season) 2024 04/03/2023, 03/14/2022, 12/16/2021, Additional [...] Procedure Name Priority Date/Time Associated Diagnosis Comments SCAN-LABORATORY REPORT 12:00 AM CDT ECHO TTE COMPLETE WO CONTRAST Routine 02/01/2024 11:56 AM CDT CVA (cerebral vascular accident) (HC) SCAN-CT INTERPRETATION 4 12:00 AM CDT SCAN-CT INTERPRETATION 4 12:00 AM CDT from Last 3 Months Results * SCAN-LABORATORY REPORT (02/02/2024 12:00 AM CDT) Scanner OTHER * ECHO TTE COMPLETE WO CONTRAST (02/01/2024 11:56 AM CDT) AORTIC VALVE MEAN PG 9 mmHg EJECTION FRACTION 63 % PEAK TR VELOCITY 3.0 m/s LVEDD 3.5 cm Anatomical Region Laterality Modality Ultrasound 02/01/2024 11:2 6 AM CDT Narrative 02/01/2024 12:40 PM CDT ECHOCARDIOGRAM JONI MONCADA ?Accession#: ?? [id number] : ?1945 78 years Study Date: ?? 02/01/2024 11:26:09 AM Gender: M ? BP: ? 145/65 mmHg Height: 170.00 cm ? BSA: ?2.05 m? ? ? Weight: 94.00 kg ?Tech: ? MHR ?Referring MD: SARA HUTCHINS Site: ? [facility] Reading Location: [facility] Patient Location: Inpatient. Procedure: 2D, Color Doppler and Spectral Doppler. Indication for study: CVA Cardiac Rhythm: Irregular.Study quality: Fair. Final Impressions: 1. Normal left ventricular size, moderately increased wall thickness, normal global systolic function, calculated EF of 63 %. 2. Right ventricular cavity size is mildly enlarged, global systolic RV function is moderately reduced. 3. The mitral valve is degenerative, trace mitral regurgitation, mild stenosis. Mean gradient 4 mmHg at HR 70 BPM. 4. Mildly enlarged left atrium. Comparison Compared to prior exam of 09/12/2021: LVEF appears improved, mild mitral stenosis present, tricuspid regurgitation does not appear as significant. Chamber Sizes and Function Normal left ventricular size, moderately increased wall thickness, normal global systolic function, calculated EF of 63 %. Left atrial size is mildly enlarged. Right ventricular cavity size is mildly enlarged, global systolic RV function is moderately reduced. A single pacemaker lead is seen in the right heart. The right atrium is moderately enlarged. Right atrial volume index is 21 ml/m? ? ?. Right atrial area is 18 cm? ? ?. The pulmonary artery is of normal size and origin. The sinus of Valsalva is normal sized. The ascending aorta is normal sized. Valves, RV Pressures and Diastolic Function The aortic valve is trileaflet, no stenosis and no regurgitation. The mitral valve is degenerative, trace mitral regurgitation. Mitral annular calcification is present. Indeterminate pattern of LV diastolic filling. The tricuspid valve is not well visualized. Tricuspid regurgitation is mild regurgitation. The tricuspid regurgitant velocity is 3.0 m/s, the estimated right ventricular systolic pressure is 36 mmHg plus right atrial pressure. The pulmonic valve is normal. Trace pulmonary regurgitation. Masses, Effusion, Shunts There is no pericardial effusion. The inferior vena cava is dilated, respiratory size variation greater than 50%. No left to right shunting was detected by limited color flow Doppler interrogation of the interatrial septum. MEASUREMENTS AND CALCULATIONS 2-D Measurements and LV Function: LVID (d) ?3.5 cm Planimetered EF 63 % LVID (s) ?2.6 cm LV FS% (2D) ? 24 % IVS (d) ? 1.5 cm LVOT diameter ?? 2.8 cm LVPW (d) ?1.6 cm HR ?73 bpm Ao Sinus ?3.5 cm LA Vol index ?41 ml/m2 Ao ST junct 2.5 cm RA Vol index ?21 ml/m2 Asc Ao ?3.5 cm RA area ? 18 cm? ? ? LA ?5.2 cm RV Max 4C (d) ?? 4.2 cm Aortic Valve: Vmax ? 1.9 m/s ??ANGELICA (V) ?? 3.16 cm? ? ? VTI ?0.41 m ?? ANGELICA (I) ?? 2.87 cm? ? ? LVOT V max 1.0 m/s ??Max PG ?14 mmHg LVOT VTI ?? 0.20 m ?? Mean PG ?? 9 mmHg SV ? 116 ml ?? Dim Index 0.48 SV index ?? 57 ml/m? ? ? CO ?8.5 l/min ?CI ?4.1 l/min/m? ? ? Mitral Valve: MV Mean G 4 mmHg Tricuspid Valve and estimated PA pressures: TR Vmax 3.0 m/s TAPSE 1.1 cm TR maxG 36 mmHg . This study was interpreted by an [facility] accredited facility. CC: HIM (med records) [facility] - IP [facility]. ??Final ?? Procedure Note Brent Verduzco MD - 02/01/2024 ECHOCARDIOGRAM JONI MONCADA : 1945 78 years Study Date: 02/01/2024 11:26:09 AM Gender: M BP: 145/65 mmHg Height: 170.00 cm BSA: 2.05 m? ? ? Weight: 94.00 kg Tech: [facility] Referring MD: SARA HUTCHINS Site: [facility] Reading Location: [facility] Patient Location: Inpatient. Procedure: 2D, Color Doppler and Spectral Doppler. Indication for study: CVA Cardiac Rhythm: Irregular.Study quality: Fair. Final Impressions: 1. Normal left ventricular size, moderately increased wall thickness,normal global systolic function, calculated EF of 63 %. 2. Right ventricular cavity size is mildly enlarged, global systolic RVfunction is moderately reduced. 3. The mitral valve is degenerative, trace mitral regurgitation, mildstenosis. Mean gradient 4 mmHg at HR 70 BPM. 4. Mildly enlarged left atrium. Comparison Compared to prior exam of 09/12/2021: LVEF appears improved, mild mitralstenosis present, tricuspid regurgitation does not appear assignificant. Chamber Sizes and Function Normal left ventricular size, moderately increased wall thickness, normalglobal systolic function, calculated EF of 63 %. Left atrial size ismildly enlarged. Right ventricular cavity size is mildly enlarged, globalsystolic RV function is moderately reduced. A single pacemaker lead isseen in the right heart. The right atrium is moderately enlarged. Rightatrial volume index is 21 ml/m? ? ?. Right atrial area is 18 cm? ? ?. Thepulmonary artery is of normal size and origin. The sinus of Valsalva isnormal sized. The ascending aorta is normal sized. Valves, RV Pressures and Diastolic Function The aortic valve is trileaflet, no stenosis and no regurgitation. Themitral valve is degenerative, trace mitral regurgitation. Mitral annularcalcification is present. Indeterminate pattern of LV diastolic filling.The tricuspid valve is not well visualized. Tricuspid regurgitation ismild regurgitation. The tricuspid regurgitant velocity is 3.0 m/s, theestimated right ventricular systolic pressure is 36 mmHg plus right atrialpressure. The pulmonic valve is normal. Trace pulmonary regurgitation. Masses, Effusion, Shunts There is no pericardial effusion. The inferior vena cava is dilated,respiratory size variation greater than 50%. No left to right shunting wasdetected by limited color flow Doppler interrogation of the interatrialseptum. MEASUREMENTS AND CALCULATIONS 2-D Measurements and LV Function: LVID (d) 3.5 cm Planimetered EF 63 % LVID (s) 2.6 cm LV FS% (2D) 24 % IVS (d) 1.5 cm LVOT diameter 2.8 cm LVPW (d) 1.6 cm HR 73 bpm Ao Sinus 3.5 cm LA Vol index 41 ml/m2 Ao ST junct 2.5 cm RA Vol index 21 ml/m2 Asc Ao 3.5 cm RA area 18 cm? ? ? LA 5.2 cm RV Max 4C (d) 4.2 cm Aortic Valve: Vmax 1.9 m/s ANGELICA (V) 3.16 cm? ? ? VTI 0.41 m ANGELICA (I) 2.87 cm? ? ? LVOT V max 1.0 m/s Max PG 14 mmHg LVOT VTI 0.20 m Mean PG 9 mmHg SV 116 ml Dim Index 0.48 SV index 57 ml/m? ? ? CO 8.5 l/min CI 4.1 l/min/m? ? ? Mitral Valve: MV Mean G 4 mmHg Tricuspid Valve and estimated PA pressures: TR Vmax 3.0 m/s TAPSE 1.1 cm TR maxG 36 mmHg . This study was interpreted by an [facility] accredited facility. CC: HIM (med records) [facility], Med/Surg - IP [facility]. Final Sara Hutchins MD ECHO ORD * SCAN-CT INTERPRETATION (01/31/2024 12:00 AM CDT) Only the most recent of2 resultswithin the time period is included. Anatomical Region Laterality Modality Other Scanner OTHER from Last 3 Months Advance Directives * Full Code (Latest Code [...] Code Status Discussion: Reviewed Preferences Care Teams Marble Worker Relationship Specialty Start Date End Date Prashant Valdez MD PCP - General Family Practice 08/23/17
--- OUTSIDE RECORDS SUMMARY | 2024-03-05 14:19 | XMS_ITS | Encounter Summary ---
Author Organization [facility] [employer] Address [address] [place] [address] Care Team Providers Care Apartment Property Manager Name Role Phone Needs Pcp, Assignment Primary Care Provider [phone] Reason for Visit * Reason Comments Follow-up Encounter Details Date Type Department Care Team (Late st Contact Info) Description 02/05/2024 2:15 PM CDT Office Visit Rheumatology at [facility] [address] [address] [place] [address] Idris Torrez DO [address] [place], [place] [phone] 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); 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 use; Stage 3a chronic kidney disease (HRC) Social History Tobacco Use Types Packs/Day [...] oz) 02/05/2024 2:07 P M CDT Height - - Body Mass Index 32.94 04/10/2023 10:06 AM CDT documented in this encounter Patient Instructions * Patient Instructions* Idris Torrez DO - 02/05/2024 2:15 PM CDT Images from the original note were not included. It was good to see you today. We are following up regarding rheumatoid arthritis. Rheumatoid arthritis looks to be well-controlled on your current dose of methotrexate. We will continue this for now. We need to check the methotrexate safety labs every 3 months. Continue methotrexate 6 tablets weekly Continue folic acid 1 mg daily Follow up with me in 3 months documented in this encounter Progress Notes * Idris Torrez DO - 02/05/2024 2:15 PM CDT Images from the original note were [...] and planned to taper off of prednisone. As of July of 2023, low disease activity on methotrexate monotherapy. Rheumatologic Serologies: Positive: RF (16, reference range 0-14 IU/mL), CCP (184, reference range 0-19 units) Rheumatologic medications: Current: - methotrexate (oral) 15 mg weekly (January 2023 - present) - folic acid 1 mg daily History of Present Illness: Joni presents to the Rheumatology Clinic today for 6 month follow up of seropositive rheumatoid arthritis as detailed above. Last visit was in July of 2023. Patient missed visit scheduled on 01/17/2024. Also did not get recommended methotrexate monitoring labs at three-month interval. Today, the patient reports to clinic accompanied by his . 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 He was hospitalized in [place] for 1 day. He is on aspirin and warfarin. Otherwise no neurologic deficits from stroke. Patient reports that rheumatoid arthritis has been well-controlled in recent months. No significantjoint pain, swelling, or stiffness. Feels like his right hand is slightly titer when making a fist than his left hand though he is able to tolerate all activities. Denies any pain. No significant morning stiffness. Taking methotrexate as prescribed. Tolerates methotrexate well. He forgot to get labs 3 months ago. Also missed DEXA scan appointment in October. Pain & RAPID3: In flowsheet if completed by patient. Pain = 0; RAPID-3 = 3.7 OBJECTIVE Physical Examination: VS: BP (!) 140/65 (BP Location: Right Arm, BP Cuff Size: Large) Pulse 88 Wt 210 lb 4.8 oz (95.4kg) BMI 32.94 kg/m?? General: alert, oriented, no acute distress [...] edema noted Musculoskeletal: All four limbs examined. No swollen or tender joints on exam. No tenderness with palpation, erythema, warmth, or swelling noted in the upper or lower extremity joints. Normal range of motion in all joints. Laboratory Data: Reviewed recent relevant results: 07/24/2023: Albumin borderline low at 3.4 g per dL (reference range 3.5-5.0) ALT within normal limits at 14 units/liter Creatinine 1.26, EGFR 58, at approximate baseline CBC with differential with stable anemia (hemoglobin 10.0 grams/deciliter, hematocrit 31.2%), RDW slightly increased at 16.7%, WBC count normal, differential normal Immunofixation with no monoclonal protein SPEP with no monoclonal protein Serum free light chain ratio elevated at 2.23 Calcium 10.1 mg/dL (reference range 8.4-10.4) Twenty-five hydroxyvitamin D within normal limits at 47 ng/mL Radiographic Information: No relevant results in interval Microbiology: No relevant results in interval Pathology: Reviewed recent relevant results: Flow Cytometry: [id number] Order: [id number] Collected 07/24/2023 15:34 Status: Final result Visible to patient: Yes (not seen) Dx: Leukocytosis, unspecified type (HRC) Specimen Information: Blood, Venous 1 Follow-up Encounter Component Resulting Agency Flow Interpretation Peripheral blood, flow cytometric immunophenotyping: [...] without aberrant loss of CD3 or CD5. at 1413 Flow Processing Information RL Received 3 ml of blood Cellularity: 7,766 cells per microliter Viability: 91.66 % Antibodies Performed: T cells: CD3, CD4, CD5, CD8 B cells: CD10, CD19, CD20, kappa, lambda Other: CD45 Clinical Information MTLAB leukocytosis ASR Disclaimer MTLAB This test was developed and the performance characteristics were determined by [facility]. It has not been cleared or approved by the U.S. Food and Drug Administration. The FDA has determined that such clearance or approval is not necessary. By his/her signature, the pathologist listed as making the final diagnosis certifies that he/she has personally reviewed this case and confirmed or corrected the diagnosis. Technical Component performed at: [facility], [address] [place] [address] Professional Component performed at: [facility], [address] [place] [id number] Assessment/Plan Joni Moncada is a pleasant 78 y.o. male who presented to the rheumatology department for seropositive rheumatoid arthritis. Joni was seen today for follow-up. Diagnoses and all orders for this visit: 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) - Albumin; Future - ALT (SGPT); Future - Creatinine / GFR; Future - CBC -W/Diff; Future 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 use - Albumin; Future - ALT (SGPT); Future - Creatinine / GFR; Future - CBC -W/Diff; Future Stage 3a chronic kidney disease (HRC) Other orders - folic acid 1 MG tablet; Take 1 Tablet (1 mg) by mouth daily. - methotrexate 2.5 MG tablet; Take 6 Tablets (15 mg) by mouth once every week. Joni presents to the Rheumatology Clinic today for seropositive rheumatoid arthritis as detailedabove. He has been on methotrexate for about 1 year. He continues to do well on methotrexate 15 mg weekly. No significant joint pain, swelling, or stiffness. No active joints on exam today. RAPID3 score of 3.7 indicating low disease activity. Unfortunately, had a posterior circulation stroke reportedly about 1 week ago. Is on warfarin and aspirin. Was hospitalized for 1 day. He forgot to get labs 3 months ago. Also recently forgot to come in for scheduled DEXA scan. Discussed with patient and how to increase adherence and he prefers visits every 3 months to accompany his labs. We will plan to follow up with him every 3 months. Given stable disease activity, we will plan to continue low-dose methotrexate 15 mg weekly. We willupdate labs today and watch creatinine closely given CKD 3. May need lower dose of methotrexate in the future. Plan: -continue oral methotrexate 15 mg weekly -continue folic acid 1 mg daily -update methotrexate monitoring labs today (CBC, creatinine, ALT, albumin). Methotrexate monitoringlabs every 3 months. -rescheduled DEXA scan at checkout desk -follow up in the rheumatology clinic in 3 months Idris Torrez DO 02/05/2024 4:05 PM This documentation was completed using [employer] Direct Dictation Software which may contain typographical and word substitution errors. Please contact my office if clarification is needed. documented in this encounter Plan of Treatment Upcoming Encounters Date Type Department Care Team (Late st Contact Info) Description 05/08/2024 10:45 AM CALL CENTER TEAM LEADER Appointment Rheumatology at [facility] [place] [id number] Desilet Opalmoe Brink, DO [address] [place], [place] [phone] 07/15/2024 3:00 PM CALL CENTER TEAM LEADER Appointment [facility] [address] [place] [address] DesiletIdris W, DO [address] [place] [address] documented as of this encounter Results * (ABNORMAL) Creatinine / GFR (02/05/2024 2:48 PM CDT) Creatinine 1.48(H) 0.73 - 1.18 mg/dL 02/05/2024 4:03 PM CDT [facility] GFR, Estimated 48(L) >60 mL/min/1.7 3m2 02/05/2024 4:03 PM CDT [facility] Blood Venipuncture / Unknown 02/05/2024 2:48 PM CDT 02/05/2024 2:48 PM CDT Narrative [facility] - 02/05/2024 4:03 PM CDT The National Kidney Disease Education Program suggests measuring Cystatin C in patients with eGFRcrea of 45 to 59 ml/min/1.73^2 who do not have other markers of kidney damage (i.e. elevated urine Albumin/Creatinine Ratio or a prior Cystatin C confirming the presence of chronic kidney disease). Idris W Desilet DO LAB_1 [facility] [address] [place] [address], [facility] * ALT (SGPT) (02/05/2024 2:48 PM CDT) ALT (SGPT) 14 <=55 U/L 02/05/2024 4:03 PM CDT [facility] Blood Venipuncture / Unknown 02/05/2024 2:48 PM CDT 02/05/2024 2:48 PM CDT Idris Brink Desilet DO LAB_1 Performing Organization Address [facility]/ZIP Co de Phone Number [facility] [address] [place] [address] * (ABNORMAL) Albumin (02/05/2024 2:48 PM CDT) Albumin 3.4(L) 3.5 - 5.0 g/dL 02/05/2024 4:03 PM CDT [facility] Blood Venipuncture / Unknown 02/05/2024 2:48 PM CDT 02/05/2024 2:48 PM CDT Idris Brink Desilet DO LAB_1 Performing Organization Address [facility] Co de Phone Number [facility] [address] [place] [address] documented in this encounter Visit Diagnoses Diagnosis 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)- Primary 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 use Encounter for long-term (current) use of other medications Stage 3a chronic kidney disease (HRC) documented in this encounter Care Teams Apartment Property Manager Relationship Specialty Start Date End Date Needs Pcp, [place], [place] [phone] PCP - General 04/10/23 documented as of this encounter
--- NOTE | 2024-03-05 14:30 | CRLHL7_ITS ---
For Patients: As a result of the Century Cures Act, medical imaging exams and procedure reports are released immediately into your electronic medical record. You may view this report before your referring provider. If you have questions, please contact your health care provider. DXA BONE MINERAL DENSITY STUDY Current height: 5???7?. Weight (lb): 205. Ethnicity: . 1. Have you had a previous hip or vertebral fracture? No. 2. Have you had any fractures during your adult life which did not result from significant trauma (e.g., auto accident)? No. 3. Did either of your parents have a hip fracture? No. 4. Do you smoke? No. 5. Have you ever taken Glucocorticoids? No. 6. Do you have rheumatoid arthritis? Yes. 7. Do you have secondary osteoporosis? No. 8. Do you drink 3 or more alcoholic drinks per day? No. 9. Are you being treated for osteoporosis? No. 10. Have you ever taken any of the following medications: Actonel, Evista, Fosamax, Miacalcin, Reclast, Boniva, Forteo, HRT (i.e. estrogen/hormone therapy), Protelos, Prolia, Vitamin D, Calcium, other ??? please specify. ANSWER: Yes, vitamin D, calcium. 11. Do you have any of the following medical conditions: Anorexia or bulimia, asthma or emphysema, end stage renal disease, hyperparathyroidism, any seizure disorders, cancer, inflammatory bowel diseases, hysterectomy, other ??? please specify. ANSWER: Yes, Asthma or emphysema. 12. What was your maximum height: 5???8?. 13. Do you perform weight bearing exercise regularly? Yes. 14. Do you regularly consume dairy products? Yes. 15. Do you drink caffeinated beverages? Yes. TECHNIQUE: Bone mineral density study was performed using the [employer]. FINDINGS: The results of the study expressed as bone mineral density (BMD) are as follows: Lumbar spine L1 to L4: BMD: 1.125 g/cm2. T-score: 0.3. Z-score: 1.5. Neck Left: BMD: 0.796 g/cm2. T-score: -1.0. Z-score: -0.5. Right: BMD: 0.767 g/cm2. T-score: -1.2. Z-score: 0.3. Total Left: BMD: 0.996 g/cm2. T-score: -0.2. Z-score: 0.8. Right: BMD: 1.005 g/cm2. T-score: -0.2. Z-score: 0.8. IMPRESSION: Osteopenia. *Comparison exams done prior to 12/2019 were performed on different unit, Pureshield. FRAX 10-year Fracture Risk Major Osteoporotic Fracture: 6.4 percent Hip Fracture: 2.0 percent Reported Risk Factors: [place] () Neck BMD=0.767, BMI=32.1 Medardo Mtz M.D. Diagnostic Radiologist [email or web address] ABBY/Dictated by: Medardo Mtz MD @ 03/05/2024 3:59:00 PM (Electronically Signed)
== END 2024-03-05 14:11 | disposition home or self-care (01) ==
LOC: RAD 14:11
PROVIDERS: PCP Family Medicine; Visit Provider Family Medicine
DX: Z13.820 Encounter for screening for osteoporosis (principal); M85.89 Other specified disorders of bone density and structure, multiple sites; M05.741 Rheumatoid arthritis with rheumatoid factor of right hand without organ or systems involvement; Z79.52 Long term (current) use of systemic steroids
CPT/HCPCS: 77080

== ENCOUNTER 2024-05-05 11:58 | Outpatient (REF) | payer MEDICARE, OTHER, SELFPAY ==
--- OUTSIDE RECORDS SUMMARY | 2024-05-05 12:03 | XMS_ITS | Clinical Summary ---
Author Organization [facility] Address [address] [place] [address] Care Team Providers Care Outpatient Coder Name Role Phone Needs Pcp, Assignment Primary Care Provider [phone] Source Comments You are receiving this document [...] for each transition of care or referral. [facility] Allerg[facility] Active Allergy Reactions Criticality Noted Date [...] % active Active GLUCOSAMINE CHONDROITIN COMPLX OR Glucosamine-Chondroit in Oral 250 mg-200 mg active Active Ferrous Sulfate Dried (FERROUS SULFATE CR OR) Ferrous Sulfate Oral active Active Cholecalciferol 50 MCG (1999 UT) TBDP Cholecalciferol Oral active Active Albuterol Sulfate, sensor, 108 (90 Base) MCG/ACT AEPB Albuterol HFA Inhaler 90 mcg/actuation active Active LANTUS SOLOSTAR 100 UNIT/ML pen Taking 32 units nightly 04/10/2023 Active folic acid 1 MG tablet Take 1 Tablet (1 mg) by mouth daily. 90 Tablet 3 02/05/2024 5 Active methotrexate 2.5 MG tablet Take 6 Tablets (15 mg) by mouth once every week. 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 Dyslipidemia 08/10/2021 Abnormal nuclear stress test 08/10/2021 Abdominal aortic aneurysm (AAA) without rupture 05/09/2021 Elevated PSA 10/13/2015 Erectile dysfunction 10/13/2015 Encounters Date Type Department Care Team Description 02/06/2024 Telephone [facility] [id number], [place] [address] Provider, Not On File 02/05/2024 2:40 PM CDT Lab Visit [facility] [address] [place] [phone] 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); 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 use 02/05/2024 2:15 PM CDT Office Visit Rheumatology at [place] [address] [place] [id number] Desilet, Luke W, DO 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); 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 use; Stage 3a chronic kidney disease (HRC) 02/05/2024 Refill Rheumatology at [place] [address] [place] [phone] Desilet, Luke W, DO Refill (methotrexate 2.5 MG tablet [Pharmacy Med Name: METHOTREXATE 2.5MG TABLETS - YELLOW]) from Last 3 Months Immunizations Name Administration Dates Next Due Flu Vac (3+ yrs) 03/20/2014, 2,02/23/2011, 010,06/02/2008,06/03/2007,05/16/2005, Flu Vac Preserv Free (3+yrs) 04/23/2013,03/24/20 09 [id number] 06/30/2009 HepA Adult (19+ yrs) 12/07/1999 HepB Adult (Engerix-B, 20+ y rs, 3 dose series) 01/05/2000,12/07/1999 IPV (Polio) 12/07/1999 Influenza IIV3 (Trivalent) F luzone Highdose, 65+ Yrs (88680) 04/16/2019,04/09/2018,03/01/2017, 016,03/18/2015 Influenza IIV4 (Quadrivalent ) 0.5mL (65375) 04/19/2021 Influenza IIV4 (Quadrivalent ) Fluad, 65+ [...] st Contact Info) Description 05/08/2024 10:45 AM MEDICAID BILLING CLERK Appointment Rheumatology at [facility] [address] [address] [address] [place] [address] Desilet, Luke W, DO [address] [place], [place] [phone] 07/15/2024 3:00 PM MEDICAID BILLING CLERK Appointment [facility] [address] [place] [address] Desilet, Luke W, DO [address] [place], [place] [phone] Health Maintenance Due Date Last Done Comments [...] Hep C Screening (Preventive Services) Completed 02/28/2023 RSV Completed 04/30/2023 Hib Aged Out No longer eligi ble based on patient's age to complete this topic Infant RSV Aged Out No longer eligi ble based [...] - 1.18 mg/dL 02/05/2024 4:03 PM CDT [facility] GFR, Estimated 48(L) >60 mL/min/1.7 3m2 02/05/2024 4:03 PM [facility] Blood Venipuncture / Unknown 02/05/2024 2:48 PM CDT 02/05/2024 2:48 PM CDT [facility] - 02/05/2024 4:03 PM CDT The National Kidney Disease Education Program suggests measuring Cystatin C in patients with eGFRcrea of 45 to 59 ml/min/1.73^2 who do not have other markers of kidney damage (i.e. elevated urine Albumin/Creatinine Ratio or a prior Cystatin C confirming the presence of chronic kidney disease). Luke W Desilet DO LAB_1 [facility] [address] [place] [address], [facility] * (ABNORMAL) Complete Blood Count-W/Diff (02/05/2024 2:48 PM CDT) WBC 8.5 3.5 - 10.5 x10(9)/L 02/05/2024 2:51 PM [facility] RBC 3.53(L) 4.32 - 5.72 x10(12)/L 02/05/2024 2:51 PM [facility] Hemoglobin 10.7(L) 13.5 - 17.5 g/dL 02/05/2024 2:51 PM [facility] HCT 33.4(L) 38.8 - 50.0 % 02/05/2024 2:51 PM [facility] MCV 94.6 80.0 - 100.0 fL 02/05/2024 2:51 PM [facility] MCH 30.3 27.6 - 33.3 pg 02/05/2024 2:51 PM [facility] MCHC 32.0 31.5 - 35.2 g/dL 02/05/2024 2:51 PM [facility] RDW 16.4(H) 11.9 - 15.5 % 02/05/2024 2:51 PM [facility] Platelets 309 150 - 450 x10(9)/L 02/05/2024 2:51 PM [facility] Automated NRBC 0 <=0 /100 WBC 02/05/2024 2:51 PM CDT [facility] Neutrophil Absolute 6.6 1.7 - 7.0 10(9)/L 02/05/2024 2:51 PM CDT [facility] Lymphocyte Absolute 1.0 1.0 - 4.8 10(9)/L 02/05/2024 2:51 PM CDT [facility] Monocyte Absolute 0.6 0.2 - 0.9 10(9)/L 02/05/2024 2:51 PM CDT [facility] Eosinophil Absolute 0.3 0.0 - 0.5 10(9)/L 02/05/2024 2:51 PM CDT [facility] Basophil Absolute 0.1 0.0 - 0.3 10(9)/L 02/05/2024 2:51 PM CDT [facility] Immature Granulocyte % 0.4 0.0 - 0.5 % 02/05/2024 2:51 PM CDT [facility] Blood Venipuncture / Unknown 02/05/2024 2:48 PM CDT 02/05/2024 2:48 PM CDT [employer] Technologyilet DO LAB_1 Performing Organization Address City/[facility]/ZIP Co de Phone Number [address] * ALT (SGPT) (02/05/2024 2:48 PM CDT) Pathologist [facility] ALT (SGPT) 14 <=55 U/L 02/05/2024 4:03 PM CDT [facility] Blood Venipuncture / Unknown 02/05/2024 2:48 PM CDT 02/05/2024 2:48 PM CDT [place] Desilet LAB_1 Performing Organization Address [facility]/ZIP Co de Phone Number [address] * (ABNORMAL) Albumin (02/05/2024 2:48 PM CDT) Pathologist [facility] Albumin 3.4(L) 3.5 - 5.0 g/dL 02/05/2024 4:03 PM CDT [facility] Blood Venipuncture / Unknown 02/05/2024 2:48 PM CDT 02/05/2024 2:48 PM CDT Idris Brink Desilet DO LAB_1 [facility] [address] [place] [address], [facility] * Hepatitis C Antibody, with Reflex (02/28/2023 9:50 AM CDT) Hepatitis C Antibody Negative (Non Reactive) Negative (Non Reactive) 02/28/2023 2:22 PM CDT [facility] Comment:Antibodies to HCV no t detected. Does not exclude the possiblity of exposure to HCV. Blood Venipuncture / Unknown 02/28/2023 9:50 AM CDT 02/28/2023 9:50 AM CDT Opalmoe W Desilet DO LAB_1 [facility] [address] from Last 3 Months or Most Recently Relevant to Health Maintenance Care Teams Outpatient Coder Relationship Specialty Start Date End Date Needs Pcp, [place] [address] PCP - General 04/10/23
--- OUTSIDE RECORDS SUMMARY | 2024-05-05 12:03 | XMS_ITS | Encounter Summary ---
Author Organization [facility] Address [address] [place] [address] Care Team Providers Care Cigarette Lighter Repairer Name Role Phone Needs Pcp, Assignment Primary Care Provider Encounter Details Date Type Department Care Team (Late st Contact Info) Description 02/05/2024 2:40 PM CDT Lab Visit [facility] [address] [place] [address] Rheumatoid arthritis involving multiple sites with positive [...] st Contact Info) Description 05/08/2024 10:45 AM ANIMAL GENETICIST Appointment Rheumatology at [facility] [address] [address] [address] [place] [address] Desilet, Opalke W, DO [address] [place] [address] 07/15/2024 3:00 PM ANIMAL GENETICIST Appointment [facility] [address] [place] [address] Desilet, Luke W, DO [address] [place], [place] [address] documented as of this encounter Procedures Procedure [...] - 10.5 x10(9)/L 02/05/2024 2:51 PM CDT [facility] RBC 3.53(L) 4.32 - 5.72 x10(12)/L 02/05/2024 2:51 PM T [facility] Hemoglobin 10.7(L) 13.5 - 17.5 g/dL 02/05/2024 2:51 PM CDT [facility] HCT 33.4(L) 38.8 - 50.0 % 02/05/2024 2:51 PM [facility] MCV 94.6 80.0 - 100.0 fL 02/05/2024 2:51 PM CDT [facility] MCH 30.3 27.6 - 33.3 pg 02/05/2024 2:51 PM CDT [facility] MCHC 32.0 31.5 - 35.2 g/dL 02/05/2024 2:51 PM [facility] RDW 16.4(H) 11.9 - 15.5 % 02/05/2024 2:51 PM T [facility] Platelets 309 150 - 450 x10(9)/L 02/05/2024 2:51 PM T [facility] Automated NRBC 0 <=0 /100 WBC 02/05/2024 2:51 PM T [facility] Neutrophil Absolute 6.6 1.7 - 7.0 10(9)/L 02/05/2024 2:51 PM T [facility] Lymphocyte Absolute 1.0 1.0 - 4.8 10(9)/L 02/05/2024 2:51 PM [facility] Monocyte Absolute 0.6 0.2 - 0.9 10(9)/L 02/05/2024 2:51 PM T [facility] Eosinophil Absolute 0.3 0.0 - 0.5 10(9)/L 02/05/2024 2:51 PM [facility] Basophil Absolute 0.1 0.0 - 0.3 10(9)/L 02/05/2024 2:51 PM [facility] Immature Granulocyte % 0.4 0.0 - 0.5 % 02/05/2024 2:51 PM [facility] Blood Venipuncture / Unknown 02/05/2024 2:48 PM CDT 02/05/2024 2:48 PM CDT Luke W Desilet DO LAB_1 [facility] [address] [place] [address] * (ABNORMAL) Creatinine / GFR (02/05/2024 2:48 PM CDT) Creatinine 1.48(H) 0.73 - 1.18 mg/dL 02/05/2024 4:03 PM T [facility] GFR, Estimated 48(L) >60 mL/min/1.7 3m2 02/05/2024 4:03 PM T [facility] Blood Venipuncture / Unknown 02/05/2024 2:48 PM CDT 02/05/2024 2:48 PM CDT Narrative [facility] - 02/05/2024 4:03 PM CDT The National Kidney Disease Education Program suggests measuring Cystatin C in patients with eGFRcrea of 45 to 59 ml/min/1.73^2 who do not have other markers of kidney damage (i.e. elevated urine Albumin/Creatinine Ratio or a prior Cystatin C confirming the presence of chronic kidney disease). Idris W Desilet DO LAB_1 Performing Organization Address [facility] Co de Phone Number [facility] [address] [place] [address] * ALT (SGPT) (02/05/2024 2:48 PM CDT) ALT (SGPT) 14 <=55 U/L 02/05/2024 4:03 PM CDT [facility] Blood Venipuncture / Unknown 02/05/2024 2:48 PM CDT 02/05/2024 2:48 PM CDT OpalChogger Desilet DO LAB_1 Performing Organization Address [facility] Phone Number [facility] [address] [place] [address] * (ABNORMAL) Albumin (02/05/2024 2:48 PM CDT) Albumin 3.4(L) 3.5 - 5.0 g/dL 02/05/2024 4:03 PM CDT [facility] Blood Venipuncture / Unknown 02/05/2024 2:48 PM CDT 02/05/2024 2:48 PM CDT eSnipsilet DO LAB_1 Performing Organization Address [facility] de Phone Number [address] documented in this encounter Visit Diagnoses Diagnosis 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) 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 use Encounter for long-term (current) use of other medications documented in this encounter Care Teams Cigarette Lighter Repairer Relationship Specialty Start Date End Date Needs Pcp, [place] [address] PCP - General 04/10/23 documented as of this encounter
--- OUTSIDE RECORDS SUMMARY | 2024-05-05 12:03 | XMS_ITS | Encounter Summary ---
Author Organization [facility] Address [address] [place] [address] Care Team Providers Care Maintenance Service Technician Name Role Phone Needs Pcp, Assignment Primary Care Provider Encounter Details Date Type Department Care Team (Late st Contact Info) Description 02/06/2024 Telephone [facility] [id number] [address] [place] [id number] Provider, Not On File [address] [place] [address] Social History Tobacco Use Types Packs/Day Years [...] st Contact Info) Description 05/08/2024 10:45 AM SLATE CUTTER Appointment Rheumatology at [facility] [address] [place] [id number] Desilet, Idris W, DO [address] [place], [place] [phone] 07/15/2024 3:00 PM SLATE CUTTER Appointment [facility] [address] [place] [address] Idris Torrez DO [address] [place], [place] [phone] documented as of this encounter Visit Diagnoses Not on filedocumented in this encounter Care Teams Maintenance Service Technician Relationship Specialty Start Date End Date Needs Pcp, Assignment [place], [place] [address] PCP - General 04/10/23 documented as of this encounter
--- OUTSIDE RECORDS SUMMARY | 2024-05-05 12:03 | XMS_ITS | Encounter Summary ---
Author Organization [facility] Address [address] [place] [address] Care Team Providers Care Photographer Helper Name Role Phone Needs Pcp, Assignment Primary Care Provider [phone] Reason for Visit * Reason Comments Refill methotrexate 2.5 MG tablet [Pharmacy Med Name: METHOTREXATE 2.5MG TABLETS - YELLOW] Encounter Details Date Type Department Care Team (Late st Contact Info) Description 02/05/2024 Refill Rheumatology at [facility] [address] [address] [place], [place] [phone] Desilet, Luke W, DO [address] [place], [place] [address] Refill (methotrexate 2.5 MG tablet [Pharmacy Med [...] on 02/05/2024 WBC: 8.5 k/cmm on 02/05/2024 [facility] Embedded Refills, Reference: [id number], 02/05/2024 2:58:07 PM CDT, Pool: ROSEMARY BELL REFDEYSI [[id number]] ([id number]) * Umesh Brennan Xrwchristina - 02/05/2024 2:58 [...] for you to get this rechecked in [place] in approximately 1 week on 03/07/2023.Your other [...] st Contact Info) Description 05/08/2024 10:45 AM WHEEL CUTTER Appointment Rheumatology at [facility] [place] [address] [address] [address] [place] [address] DesiletChel W, DO [address] [place] [address] 07/15/2024 3:00 PM WHEEL CUTTER Appointment [facility] [address] [place] [address] DesileChel walters, DO [address] [place], [place] [phone] documented as of this encounter Visit Diagnoses Not on filedocumented in this encounter Care Teams Photographer Helper Relationship Specialty Start Date End Date Needs Pcp, [place] [address] PCP - General 04/10/23 documented as of this encounter
--- OUTSIDE RECORDS SUMMARY | 2024-05-05 12:04 | XMS_ITS | Encounter Summary ---
Author Organization [facility] Address [address] [place] [address] Care Team Providers Care Field Inspector Name Role Phone Needs Pcp, Assignment Primary Care Provider [phone] Reason for Visit * Reason Comments Follow-up Encounter Details Date Type Department Care Team (Late st Contact Info) Description 02/05/2024 2:15 PM CDT Office Visit Rheumatology at [facility] [address] [address] [place] [address] Idris Torrez DO [address] [place], [place] [phone] Rheumatoid arthritis involving multiple sites with positive [...] an ophthalmology visit. He was hospitalized in [place] for 1 day. He is on aspirin [...] Pathology: Reviewed recent relevant results: Flow Cytometry: [id number] Order: [id number] Collected 07/24/2023 15:34 Status: Final result Visible [...] and the performance characteristics were determined by [facility]. It has not been cleared or approved by the U.S. Food and Drug Administration. The FDA has determined that such clearance or approval is not necessary. By his/her signature, the pathologist listed as making the final diagnosis certifies that he/she has personally reviewed this case and confirmed or corrected the diagnosis. Technical Component performed at: [facility], [address] [place] [address] Professional Component performed at: [facility], [address] [place] [address] Assessment/Plan Joni Moncada is a pleasant 78 [...] 4:05 PM This documentation was completed using M*Textádo Fluency Direct Dictation Software which may contain typographical and word substitution errors. Please contact my office if clarification is needed. documented in this encounter Plan of Treatment Upcoming Encounters Date Type Department Care Team (Late st Contact Info) Description 05/08/2024 10:45 AM SOLAR ELECTRIC PRACTITIONER Appointment Rheumatology at [facility] [place] [phone] Desilet Opalmoe Brink, DO [address] [place], [place] [phone] 07/15/2024 3:00 PM SOLAR ELECTRIC PRACTITIONER Appointment [facility] [address] [place] [address] DesiletIdris W, DO [address] [place] [address] documented as of this encounter Results * (ABNORMAL) Creatinine / GFR (02/05/2024 2:48 PM CDT) Creatinine 1.48(H) 0.73 - 1.18 mg/dL 02/05/2024 4:03 PM CDT [facility] GFR, Estimated 48(L) >60 mL/min/1.7 3m2 02/05/2024 4:03 PM CDT [facility] Blood Venipuncture / Unknown 02/05/2024 2:48 PM CDT 02/05/2024 2:48 PM CDT Narrative [facility] - 02/05/2024 4:03 PM CDT The National Kidney Disease Education Program suggests measuring Cystatin C in patients with eGFRcrea of 45 to 59 ml/min/1.73^2 who do not have other markers of kidney damage (i.e. elevated urine Albumin/Creatinine Ratio or a prior Cystatin C confirming the presence of chronic kidney disease). Idris W Desilet DO LAB_1 [facility] [address] [place] [address], [facility] * ALT (SGPT) (02/05/2024 2:48 PM CDT) ALT (SGPT) 14 <=55 U/L 02/05/2024 4:03 PM CDT [facility] Blood Venipuncture / Unknown 02/05/2024 2:48 PM CDT 02/05/2024 2:48 PM CDT Idris Brink Desilet DO LAB_1 Performing Organization Address [facility]/ZIP Co de Phone Number [facility] [address] [place] [address] * (ABNORMAL) Albumin (02/05/2024 2:48 PM CDT) Albumin 3.4(L) 3.5 - 5.0 g/dL 02/05/2024 4:03 PM CDT [facility] Blood Venipuncture / Unknown 02/05/2024 2:48 PM CDT 02/05/2024 2:48 PM CDT Idris Brink Desilet DO LAB_1 Performing Organization Address [facility] Co de Phone Number [facility] [address] [place] [address] documented in this encounter Visit Diagnoses Diagnosis 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
--- OUTSIDE RECORDS SUMMARY | 2024-05-05 12:04 | XMS_ITS | Clinical Summary ---
Author Organization [employer] [facility] Address [place], [place] [address] Care Team Providers Care Coastal Tug Mate Name Role Phone Prashant Valdez MD Primary Care Provider [phone] Allergies Active Allergy Reactions Criticality Noted Date Comments Cephalosporins Hives High 06/03/2007 Medications Medication Sig Dispensed Refills Start Date End Date Status XALATAN 0.005 % EYE DROPS Place 1 Drop into right eye at bedtime. 0 06/03/2007 Active albuterol HFA (PRO-AIR,VENTOLIN ,PROVENTIL) 90 mcg/actuation inhalerIndication s:Counseling for travel Inhale 2 Puffs by mouth 4 times daily if needed. 1 Inhaler 2 06/02/2015 Active ACCU-CHEK MIGUEL PLUS TEST STRP strip TEST D UTD 0 11/28/2016 Active dutasteride 0.5 mg capsule Take 0.5 mg by mouth once daily. 11 07/09/2018 Active b complex vitamins (VITAMIN B COMPLEX) capsule Take 1 capsule by mouth once daily. 0 07/15/2018 Active Glucosamine-Chond roitin 250-200 mg tablet Take 1 Tablet by mouth once daily. 0 05/09/2021 Active timolol hemihydrate (BETIMOL) 0.25 % ophthalmic solution Place 1 Drop into right eye once daily. Active simvastatin (ZOCOR) 10 mg tablet Take 10 mg by mouth at bedtime. Active calcium carbonate/vitamin D3 (CALCIUM 500 + D ORAL) Take 500 mg by mouth once daily. Active nitroglycerin (NITROSTAT) 0.4 mg sublingual tabletIndications :Coronary artery disease, unspecified vessel or lesion type, unspecified whether angina present, unspecified whether [place] or transplanted heart Place 1 Tablet (0.4 [...] mouth 2 times daily before meals. Active WalkerIndications :S/P CABG x 4 Walker with front wheels for home use. 1 Each 09/16/2021 Active metFORMIN (GLUCOPHAGE XR) 500 mg Extended-Release tabletIndications :Type 2 diabetes mellitus with hyperglycemia, without long-term current use of insulin (HC) Take 2 Tablets (1,000 mg) by mouth 2 times daily with meals. 0 09/17/2021 Active Lantus Solostar U-100 Insulin 100 unit/mL (3 mL) penIndications:Ty pe 2 diabetes mellitus with hyperglycemia, without long-term current use of insulin (HC) Inject 24 units subcutaneous before bedtime. 3 04/18/2022 Active HumaLOG KwikPen Insulin 100 unit/mL inpn pen 05/04/2023 Active spironolactone (ALDACTONE) 25 mg tabletIndications :Heart failure with preserved ejection fraction, unspecified HF chronicity (HC) Take 1 Tablet (25 mg) by mouth every morning. 90 Tablet 3 05/08/2023 Active magnesium oxide (Mag-Ox) 400 mg tabletIndications :Heart failure with preserved ejection fraction, unspecified HF chronicity (HC),Hypomagnesem ia Take 1 Tablet (400 mg) by mouth once daily. 90 Tablet 3 05/08/2023 Active carvediloL (COREG) 6.25 mg tabletIndications :S/P CABG x 4,HTN (hypertension) Take 1 Tablet (6.25 mg) by mouth two times daily with meals. 180 Tablet 3 05/08/2023 Active torsemide (DEMADEX) 20 mg tabletIndications :Heart failure with preserved ejection fraction, unspecified HF chronicity (HC) TAKE 1 TABLET(20 MG) BY MOUTH EVERY DAY 90 Tablet 1 10/29/2023 Active warfarin (COUMADIN) 7.5 mg tablet Take 7.5 mg by mouth once daily. Active warfarin (COUMADIN) 5 mg tablet Take 5 mg by mouth once daily. Active METHOTREXATE ORAL Take by mouth. Act brandi aspirin (Aspirin EC) 81 mg enteric coated tabletIndications :Hx of ischemic right AUTOCAD DESIGNER stroke Take 1 Tablet (81 mg) by mouth once daily with a meal. 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 Overview (09/05/2021): WHEELER to LAD, Saphenous vein graft sequential to OM and D1, Saphenous vein graft to PDA CAD in [place] artery 08/25/2021 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 Abnormal nuclear stress test 08/10/2021 Dyslipidemia 08/10/2021 Type 2 diabetes mellitus wit h hyperglycemia, without long-term current use of insulin 05/09/2021 Abdominal aortic aneurysm (AAA) without rupture 05/09/2021 Permanent atrial fibrillation 01/24/2019 Elevated PSA 10/13/2015 Erectile dysfunction 10/13/2015 HTN (hypertension) 06/02/2015 Gastric ulcer 06/23/2010 Overview (06/23/2010): EGD 06/2010 ulcers Encounters Date Type Department Care Team Description 04/29/2024 2:30 PM CDT Office Visit [facility] [address] [place] [phone] Remy Cordoba MD Consult (R > L carotid stenosis) 04/29/2024 12:49 PM CDT - 04/29/2024 11:59 PM CDT Hospital Encounter [facility] [address] [place] [address] Radhames Aguilar PA Carotid stenosis, bilateral 04/29/2024 Travel 03/19/2024 Orders Only [facility] [address] [place] [phone] Radhames Aguilar, PA <No scans attached> 03/13/2024 1:30 PM CDT Office Visit [facility] [address] [place] [phone] Mary Stoll NP Follow Up (Stroke follow up '01/2024 [facility] - evaluated via tele-health) 03/13/2024 Telephone [facility] [address] [facility] [address] [place] [address] Mary Stoll NP PASCUAL 03/13/2024 Travel 03/12/2024 Telephone [facility] Special[facility] [address] [place] [address] Mary Stoll NP Appointment Reminder 02/11/2024 Orders Only [facility] Scanner 1 scan: (1-Ord) [facility], 02/11/2024 02/09/2024 Transcribe Orders [facility] [address] [place] [address] Prashant Valdez MD 02/06/2024 Telephone [facility] [address] [facility] [address] [place] [address] Mary Stoll NP Questions; Hospital F/U from Last 3 Months Immunizations Name Administration [...] Sign Reading Time Taken Comments Blood Pressure 161/70 04/29/2024 2:40 PM CDT pt talking Pulse 71 04/29/2024 2:39 PM CDT Temperature 36.9 ??C (98.4 ??F) 09/17/2021 7 :47 AM CDT Respiratory Rate 19 09/23/2021 1:02 PM CDT Oxygen Saturation 94% 04/29/2024 2:3 9 PM CDT Inhaled Oxygen Concentration - - Weight 92.1 kg (203 lb 0.7 oz) 04/29/20 2:39 PM CDT Height 170.2 cm (5' 7.01) 04/29/2024 2 :39 PM CDT Body Mass Index 31.79 04/29/2024 2:39 PM CDT Plan of Treatment Upcoming Encounters Date Type Department Care Team (Late st Contact Info) Description 08/12/2024 11:00 AM CORE MEASURES ABSTRACTOR Cardiac Device Check [facility] [address] [place] [address] Health Maintenance Due Date Last Done Comments Depression screening for age 12+ 1956 Hepatitis C screening for ag e 18-79 1962 Medicare Wellness for age 65+ 2009 Zoster (shingles) series for age 50+ (1 of 2) 02/24/2011 12/30/2010 Tetanus booster 06/02/2018 06/02/2008 RSV vaccine for adults or (1 - 1-dose 75+ series) 2019 Influenza for age 65+ 03/02/2024 04/09/2018, 007 COVID-19 vaccine series ( season) 2024 03/19/2024, 04/03/2023, 03/14/2022, Additional history exists BMI (ht and wt on same day) for age 18+ 04/29/2025 04/29/2024, 03/13/2024, 05/08/2023, Additional history exists Tdap Completed 06/02/2008 Pneumococcal series for age 65+ Completed 04/09/2018, 10/07/2014, 10/23/2008 Goals Goal Patient Goal Type Associated Problems Recent Progress Patient-Stated? Author BLOOD PRESSURE - MAINTAINS BP less than 140/90 Blood Pressure No Vivien Velazquez Procedures Procedure Name Priority Date/Time Associated Diagnosis Comments US CAROTID DUPLEX BILATERAL Routine 04/29/2024 1:39 PM CDT Carotid stenosis, bilateral SCAN-EYE EXAM 02/11/2024 12:00 AM CDT from Last 3 Months Results * US CAROTID DUPLEX BILATERAL (04/29/2024 1:39 PM CDT) Anatomical Region Laterality Modality CAROTID, NECK Ultrasound 04/29/2024 1:07 PM CDT Narrative 04/29/2024 1:56 PM CDT VASCULAR ULTRASOUND REPORT JONI MONCADA Accession#: ?? [id number] : ?1945 Study Date: ?? 04/29/2024 1:07:27 PM Age: ?78 years ?? Tech: ? LMS Gender: M ?Referring MD: RADHAMES MORRISONAlexandra Site: [facility] Vascular [facility] Study performed: ?Carotid Indication for Study: TIA/CVA TECHNIQUE: The extracranial carotid arteries, vertebral arteries and subclavian arteries were examined per exam protocol with duplex ultrasound, color-flow and spectral Doppler. Flow velocities including peak systolic (PSV), end diastolic (EDV), and velocity ratios if applicable were documented at sites per exam protocol. IMPRESSION: 1. Based on the ICA velocities, ICA/CCA ratio, and 2D images there is plaque causing 50-69% stenosis in the right internal carotid artery and there is plaque causing <50% stenosis in the left internal carotid artery. 2. Abnormal flow in the right vertebral artery suggestive of flow-limiting stenosis and normal antegrade flow in the left vertebral artery. 3. Multiphasic flow in the right subclavian artery consistent with no flow limiting stenosis and multiphasic flow in the left subclavian artery consistent with no flow limiting stenosis. COMPARISON: No prior study available for comparison. FINDINGS: Enlarged thyroid. Elevated velocities in the external carotid arteries, bilaterally. Large calcifications in the internal carotid arteries likely obscuring higher velocities, bilaterally. RIGHT FINDINGS: Abnormal flow in the right vertebral artery. Multiphasic flow in the right subclavian artery consistent with no flow limiting stenosis. LEFT FINDINGS: Antegrade flow in the left vertebral artery. Multiphasic flow in the left subclavian artery consistent with no flow limiting stenosis. MEASUREMENTS: +--------+--------+------+--------+--------+ RIGHT ?? RIGHT ?LEFT ?LEFT ?? +--------+--------+------+--------+--------+ PSV cm/s EDV cm/s Vessel PSV cm/s EDV cm/s +--------+--------+------+--------+--------+ ?? 97 ? 13 ?? P. CCA ?? 90 ? 11 ?? +--------+--------+------+--------+--------+ ?? 81 ? 18 ?? D. CCA ?? 95 ? 20 ?? +--------+--------+------+--------+--------+ ??194 ? 32 ?? P. ICA ?? 90 ? 19 ?? +--------+--------+------+--------+--------+ ??190 ? 30 ?? M. ICA ??102 ? 24 ?? +--------+--------+------+--------+--------+ ??143 ? 37 ?? D. ICA ?? 88 ? 26 ?? +--------+--------+------+--------+--------+ ??307 ? 19 ?? ECA ?226 ? 19 ?? +--------+--------+------+--------+--------+ +-----+ +----+ RIGHT ? LEFT +-----+ +----+ 145 Subclavian Artery (cm/s) 151 +-----+ +----+ 23 ?? Vertebral Artery (cm/s) 72 +-----+ +----+ 2.4 ? ICA/CCA Ratio ? 1.1 +-----+ +----+ TERRI Oneil. Electronically signed on 04/29/2024 1:56:13 PM This study was performed and interpreted by a service accredited by the Intersocietal Accreditation Commission (IAC/Vascular), www.intersocietal.org/vascular Report generated by [employer]. ??Final ?? Procedure Note Cody Cameron MBBS - 04/29/2024 VASCULAR ULTRASOUND REPORT JONI MONCADA : 1945 Study Date: 04/29/2024 1:07:27 PM Age: 78 years Tech: GUSTAVO Gender: M Referring MD: RADHAMES AGUILAR Site: [facility] Study performed: Carotid Indication for Study: TIA/CVA TECHNIQUE: The extracranial carotid arteries, vertebral arteries and subclavianarteries were examined per exam protocol with duplex ultrasound,color-flow and spectral Doppler. Flow velocities including peak systolic(PSV), end diastolic (EDV), and velocity ratios if applicable weredocumented at sites per exam protocol. IMPRESSION: 1. Based on the ICA velocities, ICA/CCA ratio, and 2D images there isplaque causing 50-69% stenosis in the right internal carotid artery andthere is plaque causing <50% stenosis in the left internal carotidartery. 2. Abnormal flow in the right vertebral artery suggestive offlow-limiting stenosis and normal antegrade flow in the left vertebralartery. 3. Multiphasic flow in the right subclavian artery consistent with noflow limiting stenosis and multiphasic flow in the left subclavian arteryconsistent with no flow limiting stenosis. COMPARISON: No prior study available for comparison. FINDINGS: Enlarged thyroid. Elevated velocities in the external carotid arteries, bilaterally. Large calcifications in the internal carotid arteries likely obscuringhigher velocities, bilaterally. RIGHT FINDINGS: Abnormal flow in the right vertebral artery. Multiphasic flow in the rightsubclavian artery consistent with no flow limiting stenosis. LEFT FINDINGS: Antegrade flow in the left vertebral artery. Multiphasic flow in the leftsubclavian artery consistent with no flow limiting stenosis. MEASUREMENTS: +--------+--------+------+--------+--------+ RIGHT RIGHT LEFT LEFT +--------+--------+------+--------+--------+ PSV cm/s EDV cm/s Vessel PSV cm/s EDV cm/s +--------+--------+------+--------+--------+ 97 13 P. CCA 90 11 +--------+--------+------+--------+--------+ 81 18 D. CCA 95 20 +--------+--------+------+--------+--------+ 194 32 P. ICA 90 19 +--------+--------+------+--------+--------+ 190 30 M. ICA 102 24 +--------+--------+------+--------+--------+ 143 37 D. ICA 88 26 +--------+--------+------+--------+--------+ 307 19 ECA 226 19 +--------+--------+------+--------+--------+ +-----+ +----+ RIGHT LEFT +-----+ +----+ 145 Subclavian Artery (cm/s) 151 +-----+ +----+ 23 Vertebral Artery (cm/s) 72 +-----+ +----+ 2.4 ICA/CCA Ratio 1.1 +-----+ +----+ TERRI Oneil. Electronically signed on 04/29/2024 1:56:13 PM This study was performed and interpreted by a service accredited by theIntersocietal Accreditation Commission (IAC/Vascular),www.[email or web address].org/vascular Report generated by [employer]. Final Radhames EDMOND US * SCAN-EYE EXAM (02/11/2024 12:00 AM CDT) Scanner OTHER from Last 3 Months Advance [...] Code Status Discussion: Reviewed Preferences Care Teams Coastal Tug Mate Relationship Specialty Start Date End Date Prashant Valdez MD PCP - General Family Practice 08/23/17
[2024-05-05 12:20] LABS: Cholesterol* 141 mg/dL (90-199)
[2024-05-05 12:21] LABS: HDL Cholesterol* 37 mg/dL (>=40); LDL Cholesterol Calculated 61 mg/dL (<100); Triglycerides* 213 mg/dL (40-149)
== END 2024-05-05 11:59 | disposition home or self-care (01) ==
LOC: NPINS 11:58
PROVIDERS: PCP Family Medicine; Visit Provider Surgery
DX: Z86.73 Personal history of transient ischemic attack (TIA), and cerebral infarction without residual deficits (principal)
CPT/HCPCS: 80061

== ENCOUNTER 2024-09-01 10:41 | Outpatient (CLI) | payer MEDICARE, OTHER, SELFPAY | END 2024-09-01 10:42 | disposition home or self-care (01) | LOC: NFLDREF 09-02 01:46 | PROVIDERS: PCP Family Medicine; Referring Provider Family Medicine; Visit Provider Family Medicine | DX: Z79.4 Long term (current) use of insulin (principal); I48.11 Longstanding persistent atrial fibrillation | CPT/HCPCS: 85610 ==

== ENCOUNTER 2024-09-11 09:59 | Outpatient (CLI) | payer MEDICARE, OTHER, SELFPAY | END 2024-09-11 10:00 | disposition home or self-care (01) | LOC: NFLDREF 09-15 01:10 | PROVIDERS: PCP Family Medicine; Referring Provider Family Medicine; Visit Provider Family Medicine | DX: I48.91 Unspecified atrial fibrillation (principal) | CPT/HCPCS: 85610 ==

== ENCOUNTER 2024-09-24 09:37 | Outpatient (CLI) | payer MEDICARE, OTHER, SELFPAY | END 2024-09-24 09:38 | disposition home or self-care (01) | LOC: NFLDREF 18:04 | PROVIDERS: PCP Family Medicine; Referring Provider Family Medicine; Visit Provider Family Medicine | DX: Z79.01 Long term (current) use of anticoagulants (principal) | CPT/HCPCS: 85610 ==

== ENCOUNTER 2024-10-12 13:35 | Emergency (ER) | payer MEDICARE, OTHER, SELFPAY ==
--- OUTSIDE RECORDS SUMMARY | 2024-10-12 13:37 | XMS_ITS | CCD ---
Author Name Interface, [email or web address] Address [address] [place] [address] [facility] Address [address] [place] [address] Care Team Providers Care Foot Drill Operator Name Role Phone Umang Valentin Unavailabl e Care Plan Reason for Visit Encounters Diagnostic Results Medications Problems Procedures Social History
--- OUTSIDE RECORDS SUMMARY | 2024-10-12 13:37 | XMS_ITS | Clinical Summary ---
Author Organization [employer] [facility] Address [address] [place] [address] Care Team Providers Care Welder Apprentice Gas Name Role Phone Prashant Valdez MD Primary Care Provider [phone] Allergies Active Allergy Reactions Criticality Noted Date Comments Cephalosporins Hives High 06/03/2007 Medications XALATAN 0.005 % EYE DROPS Place 1 Drop into right eye at bedtime. 0 7 Active albuterol HFA (PRO-AIR,VENTOLI N,PROVENTIL) 90 mcg/actuation inhalerIndicatio ns:Counseling for travel Inhale 2 Puffs by mouth 4 times daily if needed. 1 Inhaler 2 5 Active ACCU-CHEK MIGUEL PLUS TEST STRP strip TEST D UTD 0 7 Active dutasteride 0.5 mg capsule Take 0.5 mg by mouth once daily. 11 9 Active b complex vitamins (VITAMIN B COMPLEX) capsule Take 1 capsule by mouth once daily. 0 9 Active Glucosamine-Jordin droitin 250-200 mg tablet Take 1 Tablet by mouth once daily. 0 1 Active timolol hemihydrate (BETIMOL) 0.25 % ophthalmic solution Place 1 Drop into right eye once daily. Active simvastatin (ZOCOR) 10 mg tablet Take 10 mg by mouth at bedtime. Active calcium carbonate/vitami n D3 (CALCIUM 500 + D ORAL) Take 500 mg by mouth once daily. Active nitroglycerin (NITROSTAT) 0.4 mg sublingual tabletIndication s:Coronary artery disease, unspecified vessel or lesion type, unspecified whether angina present, unspecified whether [place] or transplanted heart Place 1 Tablet (0.4 mg) under the tongue every 5 minutes if needed for Chest Pain. 30 Tablet 1 08/10/2021 2:45 PM TELECOM ANALYST 2 Active ferrous sulfate, 65 mg elemental, tablet Take 1 Tablet (325 mg) by mouth once daily with a meal. 0 2 Active cholecalciferol (VITAMIN D3) 1,000 unit capsule Take 1 Capsule (1,000 units) by mouth once daily. 0 2 Active glipiZIDE (GLUCOTROL) 5 mg tablet Take 5 mg by mouth 2 times daily before meals. Active WalkerIndication s:S/P CABG x 4 Walker with front wheels for home use. 1 Each 2 Active metFORMIN (GLUCOPHAGE XR) 500 mg Extended-Release tabletIndication s:Type 2 diabetes mellitus with hyperglycemia, without long-term current use of insulin (HC) Take 2 Tablets (1,000 mg) by mouth 2 times daily with meals. 0 2 Active Lantus Solostar U-100 Insulin 100 unit/mL (3 mL) penIndications:T ype 2 diabetes mellitus with hyperglycemia, without long-term current use of insulin (HC) Inject 24 units subcutaneous before bedtime. 3 2 Active HumaLOG KwikPen Insulin 100 unit/mL inpn pen 3 Active spironolactone (ALDACTONE) 25 mg tabletIndication s:Heart failure with preserved ejection fraction, unspecified HF chronicity (HC) Take 1 Tablet (25 mg) by mouth every morning. 90 Tablet 3 3 Active magnesium oxide (Mag-Ox) 400 mg tabletIndication s:Heart failure with preserved ejection fraction, unspecified HF chronicity (HC),Hypomagnese karli Take 1 Tablet (400 mg) by mouth once daily. 90 Tablet 3 3 Active carvediloL (COREG) 6.25 mg tabletIndication s:S/P CABG x 4,HTN (hypertension) Take 1 Tablet (6.25 mg) by mouth two times daily with meals. 180 Tablet 3 3 Active torsemide (DEMADEX) 20 mg tabletIndication s:Heart failure with preserved ejection fraction, unspecified HF chronicity (HC) TAKE 1 TABLET(20 MG) BY MOUTH EVERY DAY 90 Tablet 1 4 Active warfarin (COUMADIN) 7.5 mg tablet Take 7.5 mg by mouth once daily. Active warfarin (COUMADIN) 5 mg tablet Take 5 mg by mouth once daily. Active METHOTREXATE ORAL Take by mouth. 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 Overview (09/05/2021): WHEELER to LAD, Saphenous vein graft sequential to OM and D1, Saphenous vein graft to PDA CAD in [place] artery 08/25/2021 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 Abnormal nuclear stress test 08/10/2021 Dyslipidemia 08/10/2021 Type 2 diabetes mellitus wit h hyperglycemia, without long-term current use of insulin 05/09/2021 Abdominal aortic aneurysm (AAA) without rupture 05/09/2021 Permanent atrial fibrillation 01/24/2019 Elevated PSA 10/13/2015 Erectile dysfunction 10/13/2015 HTN (hypertension) 06/02/2015 Gastric ulcer 06/23/2010 Overview (06/23/2010): EGD 06/2010 ulcers Immunizations Immunization Administration Dates Next Due Influenza, High-dose Inactivated [...] Recorded Sex Assigned at Not on file Legal Sex Male 5:26 AM TELECOM ANALYST Gender Identity Not on file Sexual Orientation Not on file Obstetrics History Last Filed Vital Signs Vital Sign Reading Time Taken Comments Blood Pressure 161/70 04/29/2024 2:40 PM CDT pt talking Pulse 71 04/29/2024 2:39 PM CDT Temperature 36.9 C (98.4 F) 09/17/2021 7:47 AM CDT Respiratory Rate 19 [...] Care Team (Late st Contact Info) Description 10/21/2024 10:00 AM CDT Appointment [facility] [address] [place] [address] 10/21/2024 11:00 AM CDT Office Visit [facility] [address] [place] [phone] Remy Cordoba MD [address] [place] [address] Health Maintenance Due Date Last Done Comments Depression screening for age 12+ 1957 Medicare Wellness for age 65+ 2009 Zoster (shingles) series for age 50+ (1 of 2) 02/24/2011 12/30/2010 Tetanus booster 06/02/2018 06/02/2008 RSV vaccine for adults or (1 - 1-dose 75+ series) 2019 COVID-19 vaccine series (8 - Pfizer risk 2023- season) 2024 03/19/2024, 04/03/2023, 03/14/2022, Additional history exists Influenza Vaccine (Season Ended) 2025 04/09/20 18, 06/03/2007 BMI (ht and wt on same day) for age 18+ 04/29/2025 04/29/2024, 03/13/2024, 05/08/2023, Additional history exists Tdap Completed 06/02/2008 Pneumococcal series for age 50+ Completed 04/09/2018, 10/07/2014, 10/23/2008 Goals Goal Patient Goal Type Associated Problems Recent Progress Patient-Stated? Author BLOOD PRESSURE - MAINTAINS BP less than 140/90 Blood Pressure No Vivien Velazquez Insurance [employer] MR PB ONLY [employer] MAPPING SOLUTION HB MEDICARE PART B HB ONLY MEDICARE PART A HB ONLY MEDICA PRIME SOLUTION HB MEDICARE PPS Advance Directives * Full Code (Latest Code [...] Code Status Discussion: Reviewed Preferences Care Teams Welder Apprentice Gas Relationship Specialty Start Date End Date Prashant Valdez MD PCP - General Family Practice 08/23/17
--- OUTSIDE RECORDS SUMMARY | 2024-10-12 13:37 | XMS_ITS | Clinical Summary ---
[facility] Address [address] [place] [address] Care Team Providers Care Inspector Plumbing Name Role Phone Needs Pcp, Assignment Primary Care Provider [phone] Source Comments You are receiving this document [...] for each transition of care or referral. [facility] Allergies Active Allergy Reactions Criticality Noted Date Comments Cephalosporins Hives High 02/28/2023 Medications metFORMIN XR (GLUCOPHAGE XR) 500 MG 24 hour release tablet Take 2 Tablets (1,000 mg) by mouth two times a day. 09/18/19 23 Active glipiZIDE (GLUCOTROL) 5 MG tablet Take 1 Tablet (5 mg) by mouth two times a day before meals. Active simvastatin (ZOCOR) 20 MG tablet Take 1 Tablet (20 mg) by mouth daily at bedtime. 12/05/19 23 Active torsemide (DEMADEX) 20 MG tablet Take 1 Tablet (20 mg) by mouth daily. Activ e spironolactone (ALDACTONE) 50 MG tablet Take 1 Tablet (50 mg) by mouth two times a day. 02/03/20 23 Active MAGNESIUM OXIDE 400 (240 Mg) MG tablet Take 1 Tablet (400 mg) by mouth daily. 12/15/19 23 Active B-D ULTRAFINE III SHORT PEN 31G X 8 MM needle Inject subcutaneously daily. 01/20/20 23 Active carvedilol (COREG) 6.25 MG tablet Carvedilol Oral BID active Active dutasteride (AVODART) 0.5 MG capsule Dutasteride Oral active Active acetaminophen (TYLENOL) 500 MG tablet every 6 hours as needed. Active B Complex Vitamins (VITAMIN B COMPLEX OR) Take 2,000 Units by mouth daily. Active timolol (BETIMOL) 0.5 % eye drop solution Timolol Ophthalmic Drops 0.5 % active Activ e GLUCOSAMINE CHONDROITIN COMPLX OR Glucosamine-Chondro itin Oral 250 mg-200 mg active Active Ferrous Sulfate Dried (FERROUS SULFATE CR OR) Ferrous Sulfate Oral active Active Cholecalciferol 50 MCG (1999 UT) TBDP Cholecalciferol Oral active Active Albuterol Sulfate, sensor, 108 (90 Base) MCG/ACT AEPB Albuterol HFA Inhaler 90 mcg/actuation active Active LANTUS SOLOSTAR 100 UNIT/ML pen Taking 32 units nightly 04/10/20 23 Active warfarin 5 MG tablet Managed by outside facility/provider 02/06/20 24 Active insulin lispro, human, (HUMALOG; ADMELOG) 100 UNIT/ML injection pen Inject subcutaneously. 02/25/20 24 Active folic acid 1 MG tablet Take 1 Tablet (1 mg) by mouth daily. 90 Tablet 3 05/08/20 24 025 Active methotrexate 2.5 MG tablet Take 4 Tablets (10 mg) by mouth once every week. 48 Tablet 1 08/06/19 25 025 Active Active Problems Problem Noted Date Diagnosed [...] Saphenous vein graft to PDA CAD in [place] artery 08/25/2021 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 Dyslipidemia 08/10/2021 Abnormal nuclear stress test 08/10/2021 Abdominal aortic aneurysm (AAA) without rupture 05/09/2021 Elevated PSA 10/13/2015 Erectile dysfunction 10/13/2015 Encounters Date Type Department Care Team Description 08/06/2024 10:10 AM VITAMIN MANAGER Lab Visit [facility] [address] [place] [address] 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 use 08/06/2024 9:30 AM VITAMIN MANAGER Office Visit Rheumatology at [facility] [place] [address] [place] [address] Idris Torrez DO 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); 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 use; Stage 3a chronic kidney disease (HRC); At risk for osteoporosis; Elevated blood pressure reading; long term care administrator (current) use of systemic steroids from Last 3 Months Immunizations Immunization Administration Dates Next Due Flu Vac (3+ yrs) 03/20/2014, 2,02/23/2011,2009,06/02/2008,06/03/2007,05/16/2005,1 Flu Vac Preserv Free (3+yrs) 04/23/2013,03/24/20 09 [id number] 06/30/2009 HepA Adult (19+ yrs) 12/07/1999 HepB Adult (Engerix-B, 20+ y rs, 3 dose series) 01/05/2000,12/07/1999 IPV (Polio) 12/07/1999 Influenza IIV3 (Trivalent) F murielzofilippo Highdose, 65+ Yrs (28243) 03/19/2024,04/16/2019,04/09/2018,2016,03/22/2016,03/18/2015 Influenza IIV4 (Quadrivalent ) 0.5mL ([id number]) 03/14/2022,04/19/2021,04/16/2019,2017,03/01/2017,03/22/2016,03/18/2015,0 03/20/2014,04/23/2013,02/13/2012, 011,04/06/2010,06/30/2009,03/24/2009,,05/16/2005,04/13/2003 Influenza IIV4 (Quadrivalent ) Fluad, 65+ Yrs 03/14/2022 Influenza IIV4 (Quadrivalent ) Fluzone, 65+ Yrs 04/03/2023,04/13/2021,03/18/2020 Moderna COVID-19 12+ 03/19/2024,04/03/2023 PCV13 (Prevnar) 10/07/2014 PCV20 (Chfiytr78) 05/08/2024 PPSV23 (Pneumovax) 04/09/2018,10/23/2008 Pfizer Bivalent 12+ 03/14/2022 Pfizer Monovalent 12+ Purple Top 022,03/22/2021,09/07/2020,2020 RSV Arexvy 04/30/2023 Tdap 01/04/2018,06/02/2008,12/18/2005 Typhoid (Typhim [...] at Not on file Legal Sex Male 7:02 AM CDT Gender Identity Not on file Sexual Orientation Not on file Last Filed Vital Signs Vital Sign Reading Time Taken Comments Blood Pressure 156/80 08/06/2024 9:23 AM VITAMIN MANAGER Pulse 83 08/06/2024 9:23 AM VITAMIN MANAGER Temperature - - Respiratory Rate - - Oxygen Saturation - - Inhaled Oxygen Concentration - - Weight 95.9 kg (211 lb 8 oz) 08/06/2024 9:23 AM VITAMIN MANAGER with shoes Height 170.2 cm (5' 7) 04/10/2023 10:06 AM CDT Body Mass Index 33.13 04/10/2023 10:06 AM CDT Plan of Treatment Upcoming Encounters Date Type Department Care Team (Late st Contact Info) Description 02/03/2025 9:30 AM CDT Appointment [facility] [address] [place] [address] Desilet, Luke W, DO [address] [place], [place] [phone] 02/03/2025 10:15 AM CDT Appointment Rheumatology at [facility] [address] [address] [address] [place], [place] [address] Desilet, Luke W, DO [address] [place], [place] [phone] Health Maintenance Due Date Last Done Comments Diabetes: Eye Exam 1944 Diabetes: Foot Exam 1944 Diabetes: Lipid Panel 1944 Diabetes: Urine Microalbumin 1945 Medicare Annual Wellness Visit 1945 HepA (2 of 2 - Risk 2-dose series) 06/07/2000 12/07/1999 HepB (3) 06/07/2000 01/05/2000, 12/07/1999 Diabetes: HGBA1C 05/27/2022 11/24/2021 COVID-19 Vaccine ( season) 2024 03/19/2024, 04/03/2023, 03/14/2022, Additional history exists Diabetes: Creatinine 08/06/2025 08/06/2024, 05/08/2024, 02/05/2024, Additional history exists DTaP/Tdap/Td (4 - Tdap) 01/05/2028 01/05/20 18, 06/02/2008, 12/18/2005 IPV (Polio) Aged Out 12/07/1999 No longer eligi ble based on patient's age to complete this topic Zoster/Shingles Completed 02/27/2019, 11/30, 12/21/2011, Additional history exists RSV Completed 04/30/2023 Influenza Completed 03/19/2024, 08/2022, 03/14/2022, Additional history exists Pneumococcal 50+ Yrs Completed 05/08/2024, 04/09/2018, 10/07/2014, Additional history exists Hib Aged Out No longer eligi ble based on patient's age to complete this topic MCV4 Aged Out No longer eligi ble based on patient's age to complete this topic Meningococcal B Aged Out No longer el igible based on patient's age to complete this topic Procedures Procedure Name Priority Date/Time Associated Diagnosis Comments COMPLETE BLOOD COUNT-W/DIFF Routine 08/06/2024 10:23 AM VITAMIN MANAGER 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 use CREATININE / GFR Routine 08/06/2024 10:2 3 AM VITAMIN MANAGER 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 use ALBUMIN Routine 08/06/2024 10:23 AM VITAMIN MANAGER 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 use ALT (SGPT) Routine 08/06/2024 10:23 AM VITAMIN MANAGER 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 use CBC AND DIFFERENTIAL PANEL Routine 08/06/2024 10:23 AM VITAMIN MANAGER 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 use from Last 3 Months Results * (ABNORMAL) Creatinine / GFR (08/06/2024 10:23 AM VITAMIN MANAGER) Creatinine 1.27(H) 0.73 - 1.18 mg/dL 08/06/2024 12:26 PM [facility] GFR, Estimated 57(L) >60 mL/min/1.7 3m2 08/06/2024 12:26 PM [facility] Blood Venipuncture / Unknown 08/06/2024 10:23 AM VITAMIN MANAGER 08/06/2024 10:23 AM [facility] - 08/06/2024 12:26 PM VITAMIN MANAGER The National Kidney Disease Education Program suggests measuring Cystatin C in patients with eGFRcrea of 45 to 59 ml/min/1.73^2 who do not have other markers of kidney damage (i.e. elevated urine Albumin/Creatinine Ratio or a prior Cystatin C confirming the presence of chronic kidney disease). us Idris Brink Desilet DO LAB_1 Final Result [facility] [address] [place] [address], [facility] * (ABNORMAL) Complete Blood Count-W/Diff (08/06/2024 10:23 AM [facility]) WBC 10.6(H) 3.5 - 10.5 x10(9)/L 08/06/2024 10:30 AM [facility] RBC 3.50(L) 4.32 - 5.72 x10(12)/L 08/06/2024 10:30 AM [facility] Hemoglobin 10.4(L) 13.5 - 17.5 g/dL 08/06/2024 10:30 AM [facility] HCT 33.0(L) 38.8 - 50.0 % 08/06/2024 10:30 AM [facility] MCV 94.3 80.0 - 100.0 fL 08/06/2024 10:30 AM [facility] MCH 29.7 27.6 - 33.3 pg 08/06/2024 10:30 AM [facility] MCHC 31.5 31.5 - 35.2 g/dL 08/06/2024 10:30 AM [facility] RDW 15.9(H) 11.9 - 15.5 % 08/06/2024 10:30 AM [facility] Platelets 354 150 - 450 x10(9)/L 08/06/2024 10:30 AM [facility] Automated NRBC 0 <=0 /100 WBC 08/06/2024 10:30 AM [facility] Neutrophil Absolute 8.3(H) 1.7 - 7.0 10(9)/L 08/06/2024 10:30 AM [facility] Lymphocyte Absolute 1.0 1.0 - 4.8 10(9)/L 08/06/2024 10:30 AM [facility] Monocyte Absolute 0.8 0.2 - 0.9 10(9)/L 08/06/2024 10:30 AM [facility] Eosinophil Absolute 0.4 0.0 - 0.5 10(9)/L 08/06/2024 10:30 AM [facility] Basophil Absolute 0.1 0.0 - 0.3 10(9)/L 08/06/2024 10:30 AM [facility] Immature Granulocyte % 0.5 0.0 - 0.5 % 08/06/2024 10:30 AM [facility] Blood Venipuncture / Unknown 08/06/2024 10:23 AM VITAMIN MANAGER 08/06/2024 10:23 AM VITAMIN MANAGER us Luke W Desilet DO LAB_1 Final Result Performing Organization Address [facility] [address]/[facility] Phone Number [facility] [address] [place] [phone] * ALT (SGPT) (08/06/2024 10:23 AM VITAMIN MANAGER) ALT (SGPT) 15 0 - 55 U/L 08/06/2024 12:26 PM [facility] Blood Venipuncture / Unknown 08/06/2024 10:23 AM VITAMIN MANAGER 08/06/2024 10:23 AM VITAMIN MANAGER us Luke W Desilet DO LAB_1 Final Result Performing Organization Address [facility] de Phone Number [facility] [address] [place] [phone] * (ABNORMAL) Albumin (08/06/2024 10:23 AM VITAMIN MANAGER) Albumin 3.3(L) 3.5 - 5.0 g/dL 08/06/2024 12:26 PM [facility] Blood Venipuncture / Unknown 08/06/2024 10:23 AM VITAMIN MANAGER 08/06/2024 10:23 AM VITAMIN MANAGER us Luke W Desilet DO LAB_1 Final Result Performing Organization Address [facility] [address]/[facility] Co de Phone Number [facility] [address] [place] [address], [facility] from Last 3 Months Insurance [employer]ICA [employer] MEDICARE MANAGED CARE [employer] Care Teams Inspector Plumbing Relationship Specialty Start Date End Date Needs Pcp, [place] [address] PCP - General 04/10/23
[2024-10-12 13:41] VITALS: BP 175/85; PULSE 75; RESP 18; TEMP 36.3; O2SAT 96; BMI 31.0
--- NOTE | 2024-10-12 13:54 | ED_ITS ---
HPI - General Adult General Time Seen by Provider: 13:48 Date Seen: 10/12/24 Chief complaint: Diabetic Related Problem Stated complaint: Low blood sugar Time Seen by Provider: 10/12/24 13:48 Source: patient, family, RN notes reviewed and other (Urgent care report) Mode of arrival: ambulatory Limitations: no limitations History of Present Illness HPI narrative: This 79-year-old male presents with his ambulatory into the ED upon referral from urgent care. He went to our urgent care with global eyes weakness and some confusion. He is known to be diabetic, blood sugar was checked in urgent care and it was 55. He did get some more juice and crackers there. He on arrival here is feeling better. He takes metformin, glipizide, Humalog and Lantus reportedly for his diabetes. He ate a typical breakfast but did not eat lunch. He notes he got up from the chair in just started feeling foggy, continued to feel foggy and went to the kitchen, tried to eat a little yogurt but it did not help. He laid his head down on the table, his then proceeded to bring him to Urgent Care. On arrival here his glucose is 75. He denies any chest pain, no shortness of breath. No headaches, no neurologic changes, is not been sick with anything, no cough or cold symptoms, no abdominal pain, no nausea vomiting, no diarrhea, no urinary symptoms. He is feeling back to baseline. He has not eaten lunch. His now states she wishes she would have thought to check his blood sugar at home. Related Data Home Medications ?Medication ?Instructions ?Recorded ?Confirmed albuterol 90 mcg/actuation aerosol 2 spray inhalation Q4H PRN 03/03/22 09/15/24 inhaler cholecalciferol (vitamin D3) 50 2,000 unit PO DAILY 03/03/22 09/15/24 mcg (2,000 unit) capsule diphenhydramine HCl 25 mg tablet 25 mg PO HS PRN 03/03/22 09/15/24 lancets 33 gauge (BD Ultra Fine 03/03/22 06/18/24 Lancets) latanoprost 0.005 % eye drops 0.005 drp ophthalmic (eye) DAILY 03/03/22 09/15/24 omega-3 fatty acids-fish oil 340 1 cap PO DAILY 03/03/22 09/15/24 mg-1,000 mg capsule (Fish Oil) vitamin B complex 1 tab PO DAILY 03/03/22 09/15/24 folic acid 1 mg tablet 1 mg PO DAILY 03/14/23 09/15/24 methotrexate sodium 2.5 mg tablet 15 mg PO QWEEK 03/14/23 09/15/24 insulin glargine 100 unit/mL (3 38 unit subcut QPM 09/15/24 09/15/24 mL) subcutaneous pen (Lantus Solostar U-100 Insulin) metformin 500 mg tablet,extended 1,000 mg PO DIRECTED 09/15/24 09/15/24 release 24 hr Previous Rx's ?Medication ?Instructions ?Recorded insulin lispro 100 unit/mL 1 sliding scale dose subcut 05/02/23 subcutaneous pen (Humalog KwikPen USEASDIRECTD #15 mL (U-100) Insulin) pen needle, diabetic 31 gauge x #100 ea 10/24/23 5/16 (BD Ultra-Fine Short Pen Needle) carvedilol 6.25 mg tablet 6.25 mg PO BID #180 tabs 04/08/24 dutasteride 0.5 mg capsule 0.5 mg PO DAILY #90 caps 04/08/24 simvastatin 20 mg tablet 20 mg PO QPM #90 tabs 04/08/24 blood sugar diagnostic (OneTouch #400 ea 06/17/24 Ultra Test strips) magnesium oxide 400 mg (241.3 mg 400 mg PO DAILY #90 tabs 07/29/24 magnesium) tablet spironolactone 50 mg tablet 50 mg PO BID #180 tabs 08/13/24 torsemide 20 mg tablet 20 mg PO QAM #90 tabs 08/21/24 allopurinol 100 mg tablet 200 mg (2 x 100 mg) PO QDAY #180 09/11/24 tabs warfarin 5 mg tablet (Jantoven) 5 mg PO .UD #100 tabs 09/11/24 glipizide 10 mg tablet, extended 10 mg PO DAILY #90 tabs 09/29/24 release 24 hr Allergies Allergy/AdvReac Type Severity Reaction Status Date / Time Cephalosporins Allergy Severe hives, Verified 10/12/24 12:56 black outs Review of Systems Status of ROS: Reports: 6 or more systems reviewed and unremarkable except as noted in History and below PFSH PFSH Medical History 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, 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) Surgical History Status post four vessel coronary artery bypass ?Z95.1 - Presence of aortocoronary bypass graft (ICD-10) Status post cardiac pacemaker procedure ?Z95.0 - Presence of cardiac pacemaker (ICD-10) Status post transurethral resection of prostate ?Z90.79 - Acquired absence of other genital organ(s) (ICD-10) Status post ligation of left atrial appendage ?Z98.890 - Other specified postprocedural states (ICD-10) Status post excision of lipoma ?Z98.890 - Other specified postprocedural states (ICD-10) ?Z86.018 - Personal history of other benign neoplasm (ICD-10) Status post cataract extraction ?Z98.49 - Cataract extraction status, 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) Family History Other FH: coronary artery bypass surgery Social History What is your current living situation?: I presently have a place to live Problems where you live: no known problems Problems where you live details: N/A In the past 12 months, utilities in danger of being shut off: no In past 12 months, lack of transportation kept you from medical appts, meetings, work, or getting things needed for daily living: no In the past 12 mos, have been you worried that your food would run out before you had money to buy more?: never true In the past 12 mos, the food you bought just didn't last and you didn't have money to buy more?: never true Smoking Status: Former smoker Do you use any of these nicotine containing products: None Second hand tobacco smoke exposure: No How often do you have a drink containing alcohol: monthly or less How often do you have six or more drinks on one occasion: Never AUDIT-C Alcohol total score: 1 Non-prescribed substance use: denies use Caffeine: Yes (2 cups / day) How often does anyone, including family, friends and others, physically hurt you : never How often does anyone, including family, friends and others, insult or talk down to you: never How often does anyone, including family, friends and others, threaten you with harm: never How often does anyone, including family, friends and others, scream or curse at you: never Exam Const: Vital Signs, click to edit/add: Vital Signs - 24 hr 10/12/24 13:41 Temperature 97.3 F L Pulse Rate [Pulse Oximeter] 75 Respiratory Rate 18 Blood Pressure [Ri ght Upper Arm] 175/85 H Pulse Oximetry 96 Oxygen Delivery Me thod Room Air This 79-year-old male is alert, interactive, no apparent distress. He is sitting up on the edge of the bed in exam room 8. Sclera clear, face atraumatic, speaking in complete sentences with normal speech. Neck supple, no adenopathy or masses, just a venous distension. Lungs are clear, good air entry, no wheezing or crackles, no tachypnea, no accessory muscle use. CV regular rate and rhythm, no significant murmur, normal S1-S2. Abdomen is soft, nontender, nondistended, no organomegaly. He has no lower extremity edema. Is ambulatory into the ED of his own accord. Documenting provider has reviewed patient's vital signs: yes Course Course ED Course: Patient had some relative hypoglycemia at 55 in Urgent Care, did take in crackers and orange juice prior to coming here. Will monitor his sugars here. He is feeling better now, presumably this was some mild hypoglycemia. Will obtain EKG, look at full complement of labs. He is endorsing no symptoms of illness but will consider early infectious etiology as a causative problem for hypoglycemia. Reevaluation(s) Time of Reevaluation #1: 15:35 Reevaluation #1: Patient did eat applesauce and turkey sandwich here. His sugar is 76. He would prefer to go home, his is with them. The understand that with the glipizide he could have ongoing hypoglycemia, need to be very diligent in watching his sugars and trying to eat more frequent snacks today, staying on top of eating appropriately. They feel they can do this, do not want hospitalization. The understand if he has any further issues of his sugars going low at home, needs to return and will need to be hospitalized. I will giv e them trial to go home given he has not had any severe hypoglycemia. Vital Signs Vital signs: Initial Vital Signs Temperature 97.3 F L 10/12/24 13:41 Temperature Source Temporal Artery Scan 10/12/24 13:41 Pulse Rate 75 10/12/24 13:41 Respiratory Rate 18 10/12/24 13:41 Blood Pressure 175/85 H 10/12/24 13:41 Blood Pressure Mean 115 H 10/12/24 13:41 Blood Pressure Position Sitting 10/12/24 13:41 Pulse Oximetry 96 10/12/24 13:41 Oxygen Delivery Method Room Air 10/12/24 13:41 Vital Signs Temperature 97.3 F L 10/12/24 13:41 Pulse Rate 75 10/12/24 13:41 Respiratory Rate 18 10/12/24 13:41 Blood Pressure 175/85 H 10/12/24 13:41 Pulse Oximetry 96 10/12/24 13:41 Oxygen Delivery Method Room Air 10/12/24 13:41 Temperature 97.3 F L 10/12/24 13:41 Pulse Rate 75 10/12/24 13:41 Respiratory Rate 18 10/12/24 13:41 Blood Pressure 175/85 H 10/12/24 13:41 Pulse Oximetry 96 10/12/24 13:41 Oxygen Delivery Method Room Air 10/12/24 13:41 Medical Decision Making Lab Data Lab results reviewed: Yes I reviewed the patient's lab results Labs: Lab Results 10/12/24 10/12/24 10/12/24 Range/Units 13:45 13:58 14:00 WBC 11.75 H (4.50-11.00) K/uL RBC 3.83 L (4.30-5.90) m/uL Hgb 11.2 L (13.5-17.5) gm/dL Hct 36.2 L (37.0-53.0) % MCV 95 (80-100) fL MCH 29 (26-34) pg MCHC 31 L (32-36) gm/dL RDW Coeff of Anil 16.2 H (11.5-15.5) % Plt Count 358 (140-440) K/uL Neut % (Auto) 82.0 H (42.0-72.0) % Lymph % (Auto) 7.9 L (20-44) % [place] % (Auto) 6.8 (0.0-11.0) % Eos % (Auto) 2.5 (0.0-7.0) % Baso % (Auto) 0.4 (0.0-3.0) % Neut # (Auto) 9.60 H (1.7-7.0) K/uL Lymph # (Auto) 0.90 (0.90-2.90) K/uL [place] # (Auto) 0.80 (0.00-0.90) K/UL Eos # (Auto) 0.30 (0.00-0.50) K/uL Baso # (Auto) 0.00 (0.00-0.30) K/uL Abs Immat Gran (auto) 0.00 (0.00-0.30) K/uL Imm/Tot Granulo (auto) 0.4 % Sodium 138 (135-149) mmol/L Potassium 5.1 (3.6-5.1) mmol/L Chloride 101 (96-114) mmol/L Carbon Dioxide 25 (20-32) mmol/L Anion Gap 12 (7-15) mEq/L BUN 35 H (7-30) mg/dL Creatinine 1.4 (0.5-1.5) mg/dL Estimated Creat Clear 39.35 Estimated GFR 51 ml/min Glucose 68 (60-115) mg/dL Lactate 1.7 (0.5-1.9) mmol/L Calcium 9.9 (8.4-10.6) mg/dL Total Bilirubin 0.4 (0.1-1.5) mg/dL AST 31 (12-35) U/L ALT 29 (4-50) U/L Alkaline Phosphatase 66 (40-150) U/L Troponin I < 0.01 (0.01-0.04) ng/mL C-Reactive Protein 1.9 H (0.5-1.0) mg/dL Total Protein 7.8 (6.0-8.3) g/dL Albumin 4.5 (3.3-5.0) g/dL Urine Color Yellow (Yellow) Urine Appearance Clear (Clear) Urine pH 5.5 (5.0-8.5) Ur Specific [place] 1.020 (1.000-1.030) Urine Protein Negative (Negative) Urine Glucose (UA) Negative (Negative) Urine Ketones Negative (Negative) Urine Blood Negative (Negative) Urine Nitrite Negative (Negative) Urine Bilirubin Negative (Negative) Urine Urobilinogen 0.2 (0.2-1.0) Ur Leukocyte Esterase Trace A (Negative) Urine RBC 0-2 (0-2) Urine WBC 2-5 (0-5) Ur Squamous Epith Cells Moderate A (None-Few) Urine Bacteria Moderate A (None) SARS-CoV-2 (PCR) Negative SARS-CoV-2 (Negative) Influenza Type A (PCR) Negative PCR FLU A (Negative) Influenza Type B (PCR) Negative PCR FLU B (Negative) RSV (PCR) Negative PCR RSV (Negative) POC Glucose (60-115) mg/dl 10/12/24 Range/Units 15:28 WBC (4.50-11.00) K/uL RBC (4.30-5.90) m/uL Hgb (13.5-17.5) gm/dL Hct (37.0-53.0) % MCV (80-100) fL MCH (26-34) pg MCHC (32-36) gm/dL RDW Coeff of Anil (11.5-15.5) % Plt Count (140-440) K/uL Neut % (Auto) (42.0-72.0) % Lymph % (Auto) (20-44) % [place] % (Auto) (0.0-11.0) % Eos % (Auto) (0.0-7.0) % Baso % (Auto) (0.0-3.0) % Neut # (Auto) (1.7-7.0) K/uL Lymph # (Auto) (0.90-2.90) K/uL [place] # (Auto) (0.00-0.90) K/UL Eos # (Auto) (0.00-0.50) K/uL Baso # (Auto) (0.00-0.30) K/uL Abs Immat Gran (auto) (0.00-0.30) K/uL Imm/Tot Granulo (auto) % Sodium (135-149) mmol/L Potassium (3.6-5.1) mmol/L Chloride (96-114) mmol/L Carbon Dioxide (20-32) mmol/L Anion Gap (7-15) mEq/L BUN (7-30) mg/dL Creatinine (0.5-1.5) mg/dL Estimated Creat Clear Estimated GFR ml/min Glucose (60-115) mg/dL Lactate (0.5-1.9) mmol/L Calcium (8.4-10.6) mg/dL Total Bilirubin (0.1-1.5) mg/dL AST (12-35) U/L ALT (4-50) U/L Alkaline Phosphatase (40-150) U/L Troponin I (0.01-0.04) ng/mL C-Reactive Protein (0.5-1.0) mg/dL Total Protein (6.0-8.3) g/dL Albumin (3.3-5.0) g/dL Urine Color (Yellow) Urine Appearance (Clear) Urine pH (5.0-8.5) Ur Specific [place] (1.000-1.030) Urine Protein (Negative) Urine Glucose (UA) (Negative) Urine Ketones (Negative) Urine Blood (Negative) Urine Nitrite (Negative) Urine Bilirubin (Negative) Urine Urobilinogen (0.2-1.0) Ur Leukocyte Esterase (Negative) Urine RBC (0-2) Urine WBC (0-5) Ur Squamous Epith Cells (None-Few) Urine Bacteria (None) SARS-CoV-2 (PCR) (Negative) Influenza Type A (PCR) (Negative) Influenza Type B (PCR) (Negative) RSV (PCR) (Negative) POC Glucose 76 (60-115) mg/dl ECG Data Attestation: I personally reviewed and interpreted this ECG as follows: (Ventricular paced rhythm, 72 beats per minute.) Prior ECG tracings: not available for review Discharge Plan Discharge Clinical Impression: Hypoglycemia associated with diabetes Patient Disposition: Home, Self-Care Condition: Stable Instructions: Hypoglycemia in a Person with Diabetes (ED) Additional Instructions: Need to schedule follow-up with your primary care provider in clinic this week. Your insulin or diabetic medications may require adjustment. You need to watch your blood glucose very carefully today, maybe check a few extra times, certainly check if you have any concerns or symptoms of recurrent hypoglycemia. You need to eat frequent snacks and make sure you are eating adequate meals today. I would recommend decreasing your insulin glargine to 36 units tonight, take this dose nightly until you follow-up with your primary care provider. If you have recurrent hypoglycemia, need to return to the ER. Activity Level: Activity as Tolerated Prescriptions: No Action insulin glargine [Lantus Solostar U-100 Insulin] 100 unit/mL (3 mL) insulin pen 38 unit subcut QPM metformin 500 mg tablet extended release 24 hr 1,000 mg PO DIRECTED Rx Instructions: 1 tab qam/ 2 tabs qhs cholecalciferol (vitamin D3) 50 mcg (2,000 unit) capsule 2,000 unit PO DAILY diphenhydramine HCl 25 mg tablet 25 mg PO HS PRN latanoprost 0.005 % drops 0.005 drp ophthalmic (eye) DAILY Patient Comments: RIGHT EYE Fish Oil 340-1,000 mg capsule 1 cap PO DAILY vitamin B complex Tablet 1 tab PO DAILY albuterol 90 mcg/actuation aerosol 2 spray inhalation Q4H PRN (DME) lancets [BD Ultra Fine Lancets] 33 gauge misc See Rx Instructions .Route Rx Instructions: As directed methotrexate sodium 2.5 mg tablet 15 mg PO QWEEK Rx Instructions: EVERY SUNDAY folic acid 1 mg tablet 1 mg PO DAILY insulin lispro [Humalog KwikPen Insulin] 100 unit/mL insulin pen 1 sliding scale dose subcut USEASDIRECTD Qty: 15 3RF Rx Instructions: sliding scale 4 units before meals if sugar is 60-100, 6 units from 101-160, 8 units for 161-220, 10 units for 221-280, and 12 units for 281 or higher. (DME) pen needle, diabetic [BD Ultra-Fine Short Pen Needle] 31 gauge x 5/16 needle See Rx Instructions .Route Qty: 100 3RF Rx Instructions: use daily simvastatin 20 mg tablet 20 mg PO QPM Qty: 90 3RF carvedilol 6.25 mg tablet 6.25 mg PO BID Qty: 180 2RF dutasteride 0.5 mg capsule 0.5 mg PO DAILY Qty: 90 2RF (DME) OneTouch Ultra Test Strip See Rx Instructions .Route Qty: 400 3RF Rx Instructions: TEST FOUR TIMES DAILY. magnesium oxide 400 mg (241.3 mg magnesium) tablet 400 mg PO DAILY Qty: 90 3RF spironolactone 50 mg tablet 50 mg PO BID Qty: 180 1RF torsemide 20 mg tablet 20 mg PO QAM Qty: 90 0RF allopurinol 100 mg tablet 200 mg PO QDAY Qty: 180 3RF warfarin [Jultoven] 5 mg tablet 5 mg PO .UD Qty: 100 0RF Protocol: Dose Management Condition: Sunday Dose/Route: 5 mg Instruction: 1 x 5 mg tablet Condition: Sunday Dose/Route: 5 mg Instruction: 1 x 5 mg tablet Condition: Sunday Dose/Route: 5 mg Instruction: 1 x 5 mg tablet Condition: Sunday Dose/Route: 5 mg Instruction: 1 x 5 mg tablet Condition: Dose/Route: 5 mg Instruction: 1 x 5 mg tablet Condition: Sunday Dose/Route: 5 mg Instruction: 1 x 5 mg tablet Condition: Sunday Dose/Route: 5 mg Instruction: 1 x 5 mg tablet Protocol Text: Adjustment Start Date: 09/25/24 INR Value: 2.70 INR Date: 09/24/24 Recheck Date: 10/16/24 Rx Instructions: 5mg daily glipizide 10 mg tablet extended release 24hr 10 mg PO DAILY Qty: 90 3RF Follow Up/Referrals: Prashant Valdez MD [Primary Care Provider] - Stand Alone Forms: [employer] Info Instructions
[2024-10-12 14:03] LABS: Appearance Urine Clear (Clear); Bilirubin Urine Negative (Negative); Blood Urine Negative (Negative); Color Urine Yellow (Yellow); Glucose Urine Negative (Negative); Ketones Urine Negative (Negative); Leukocyte Esterase Urine Trace (Negative); Nitrite Urine Negative (Negative); Protein Urine Negative (Negative); Urobilinogen Urine 0.2 (0.2-1.0); pH Urine 5.5 (5.0-8.5)
--- OUTSIDE RECORDS SUMMARY | 2024-10-12 14:07 | XMS_ITS | Clinical Summary ---
Author Organization [employer] [facility] Address [address] [place] [id number] Care Team Providers Care Commissions Specialist Name Role Phone Prashant Valdez MD Primary Care Provider [phone] Allergies Active Allergy Reactions Criticality Noted Date [...] type, unspecified whether angina present, unspecified whether iroquois or transplanted heart Place 1 Tablet (0.4 mg) under the tongue every 5 minutes if needed for Chest Pain. 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 Gender Identity Not on file Sexual Orientation [...] IMAGING [address] [place] [address] 10/21/2024 11:00 AM CDT Office Visit [facility] [address] [place] [id number] Remy Cordoba MD [address] [place] [address] Health Maintenance Due Date Last Done Comments [...] 140/90 Blood Pressure No Vivien Velazquez [employer] MR PB ONLY [employer] SOLUTION HB MEDICARE PART B HB ONLY [...] Code Status Discussion: Reviewed Preferences Care Teams Commissions Specialist Relationship Specialty Start Date End Date Prashant Valdez MD PCP - General Family Practice 08/23/17
[2024-10-12 14:08] LABS: Basophils Percent Auto 0.4 % (0.0-3.0); Eosinophils Percent Auto 2.5 % (0.0-7.0); Hematocrit 36.2 % (37.0-53.0); Hemoglobin* 11.2 gm/dL (13.5-17.5); Immature Granulocytes Pct Auto 0.4 %; Lactate* 1.7 mmol/L (0.5-1.9); Lymphocytes Percent Auto 7.9 % (20-44); Mean Corpuscular HGB Conc 31 gm/dL (32-36); Mean Corpuscular Hemoglobin 29 pg (26-34); Mean Corpuscular Volume 95 fL (80-100); Monocytes Percent Auto 6.8 % (0.0-11.0); Platelet Count* 358 K/uL (140-440); RDW Coefficient of Variation % 16.2 % (11.5-15.5); Red Blood Count 3.83 m/uL (4.30-5.90); White Blood Count* 11.75 K/uL (4.50-11.00)
--- OUTSIDE RECORDS SUMMARY | 2024-10-12 14:08 | XMS_ITS | CCD ---
Author Name Interface, [email or web address] lity Address [address] [facility] [address] [address] [facility] Address [address] [facility] [address] [address] Care Team Providers Care Television News Video Editor Name Role Phone Umang Valentin Leatha agudelo Care Plan Date Type Value 02/07/2024 APPOINTMENT TELE[facility] PATIENT 20 MIN 12/08/2021 LABORDER Bone survey 09/26/2022 LABORDER Immunoglobulin m easurement 09/26/2022 LABORDER Ferritin panel 09/26/2022 LABORDER Iron profile 09/26/2022 LABORDER CMP 09/26/2022 LABORDER CBC w/ auto diff 09/26/2022 LABORDER Serum Protein El ectrophoresis (SPEP) 09/26/2022 LABORDER Free kappa / kaba bda with K/L ratio, serum 01/25/2024 LABORDER Iron profile 01/25/2024 LABORDER Free kappa / kaba bda with K/L ratio, serum 01/25/2024 LABORDER CBC w/ auto diff 01/25/2024 LABORDER CMP 01/25/2024 LABORDER Serum Protein El ectrophoresis (SPEP) 01/25/2024 LABORDER Immunoglobulin m easurement 01/25/2024 LABORDER Ferritin panel Reason for Visit TELEHEALTH [facility] EST PATIENT 20 MIN Encounters Date Name 02/07/2024 Iron deficiency anem ia (disorder) Diagnostic Results Date Type Test Units Lower Limit Upper Limit Result Flag Comments Status Ordered By Specimen Source Lab Address 01/23 Misc other lab See attache frankel Medications Date Name Route Dose Frequency Instructions Start Date End Date Status Aspirin Oral inac tive Albuterol HFA Inhaler 90 mcg/actuation active Magnesium Oxide Oral active Cyanocobalamin Oral inactive Ferrous Sulfate Oral active Nitroglycerin Sublingual inactive Glucosamine-Chondr oitin Oral 250 mg-200 mg active Dutasteride Oral active Latanoprost Ophthalmic Drops 0.005 % inactive Insulin Glargine Subcutaneous Pen 100 unit/mL 24 unit active Omeprazole Oral Delayed Release Capsule active Spironolactone Oral active Torsemide Oral ac tive Acetaminophen Oral active Carvedilol Oral BID a ctive Simvastatin Oral active Glipizide Oral BID ac tive Vitamin B Complex Oral Tablet orally 1.0 daily active Timolol Ophthalmic Drops 0.5 % active Warfarin Oral 5 mg 5 days/week and 7.5 2 days/week inactive Prednisone Oral once a day inactive Methotrexate Oral 6 tabs once a week active Metformin Oral orally 1000.0 mg 2 times per day active Cholecalciferol Oral active Problems Diagnosis Status Date of 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
--- OUTSIDE RECORDS SUMMARY | 2024-10-12 14:08 | XMS_ITS | CCD ---
Author Name Interface, [email or web address] lity Address [address] [facility] [address] [address] [facility] Address [address] [facility] [address] [address] Care Team Providers Care Retail Grocer Name Role Phone Umang Valentin Leatha agudelo Care Plan Date Type Value 02/07/2024 APPOINTMENT TELEHEALTH [facility] PATIENT 20 MIN 12/08/2021 LABORDER [...]
--- OUTSIDE RECORDS SUMMARY | 2024-10-12 14:08 | XMS_ITS | Clinical Summary ---
[facility] Address [address] [place] [address] Care Team Providers Care Mobile Nurse Name Role Phone Needs Pcp, Assignment Primary Care Provider [phone] Source Comments You are receiving this document [...] for each transition of care or referral. 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 Dyslipidemia 08/10/2021 Abnormal nuclear stress test 08/10/2021 Abdominal aortic aneurysm (AAA) without rupture 05/09/2021 Elevated PSA 10/13/2015 Erectile dysfunction 10/13/2015 Encounters Date Type Department Care Team Description 08/06/2024 10:10 AM SUPERVISOR TYPE BAR AND SEGMENT Lab Visit [facility] [address] [place] [address] 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 use 08/06/2024 9:30 AM SUPERVISOR TYPE BAR AND SEGMENT Office Visit Rheumatology at [facility] [place] [address] [place] [id number] Idris Torrez DO 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); 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 use; Stage 3a chronic kidney disease (HRC); At risk for osteoporosis; Elevated blood pressure reading; 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 from Last 3 Months Immunizations Immunization Administration Dates Next Due Flu Vac (3+ yrs) 03/20/2014, 2,02/23/2011,2009,06/02/2008,06/03/2007,05/16/2005,1 Flu Vac Preserv Free (3+yrs) 04/23/2013,03/24/20 09 [id number] 06/30/2009 HepA Adult (19+ yrs) 12/07/1999 HepB Adult (Engerix-B, 20+ y rs, 3 dose series) 01/05/2000,12/07/1999 IPV (Polio) 12/07/1999 Influenza IIV3 (Trivalent) F murielzofilippo Highdose, 65+ Yrs (77842) 03/19/2024,04/16/2019,04/09/2018,2016,03/22/2016,03/18/2015 Influenza IIV4 (Quadrivalent ) 0.5mL (88483) 03/14/2022,04/19/2021,04/16/2019,2017,03/01/2017,03/22/2016,03/18/2015,0 03/20/2014,04/23/2013,02/13/2012, 011,04/06/2010,06/30/2009,03/24/2009,,05/16/2005,04/13/2003 Influenza IIV4 (Quadrivalent ) Fluad, 65+ Yrs 03/14/2022 Influenza IIV4 (Quadrivalent ) Fluzone, 65+ Yrs 04/03/2023,04/13/2021,03/18/2020 Moderna COVID-19 12+ 03/19/2024,04/03/2023 PCV13 (Prevnar) 10/07/2014 PCV20 (Sowyfzn43) 05/08/2024 PPSV23 (Pneumovax) 04/09/2018,10/23/2008 Pfizer Bivalent 12+ [...] Comments Blood Pressure 156/80 08/06/2024 9:23 AM SUPERVISOR TYPE BAR AND SEGMENT Pulse 83 08/06/2024 9:23 AM SUPERVISOR TYPE BAR AND SEGMENT Temperature - - Respiratory Rate - - Oxygen Saturation - - Inhaled Oxygen Concentration - - Weight 95.9 kg (211 lb 8 oz) 08/06/2024 9:23 AM SUPERVISOR TYPE BAR AND SEGMENT with shoes Height 170.2 cm (5' 7) 04/10/2023 10:06 AM CDT Body Mass Index 33.13 04/10/2023 10:06 AM CDT Plan of Treatment Upcoming Encounters Date Type Department Care Team (Late st Contact Info) Description 02/03/2025 9:30 AM CDT Appointment [facility] [address] [place] [address] Desilet, Luke W, DO [address] [place], [place] [id number] 02/03/2025 10:15 AM CDT Appointment Rhe[facility]ology at [facility] [address] [address] [address] [place], [place] [id number] Desilet, Luke W, DO [address] [place], [place] [id number] Health Maintenance Due Date Last Done Comments [...] COMPLETE BLOOD COUNT-W/DIFF Routine 08/06/2024 10:23 AM SUPERVISOR TYPE BAR AND SEGMENT 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 use CREATININE / GFR Routine 08/06/2024 10:2 3 AM SUPERVISOR TYPE BAR AND SEGMENT 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 use ALBUMIN Routine 08/06/2024 10:23 AM SUPERVISOR TYPE BAR AND SEGMENT 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 use ALT (SGPT) Routine 08/06/2024 10:23 AM SUPERVISOR TYPE BAR AND SEGMENT 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 use CBC AND DIFFERENTIAL PANEL Routine 08/06/2024 10:23 AM SUPERVISOR TYPE BAR AND SEGMENT 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 use from Last 3 Months Results * (ABNORMAL) Creatinine / GFR (08/06/2024 10:23 AM SUPERVISOR TYPE BAR AND SEGMENT) Creatinine 1.27(H) 0.73 - 1.18 mg/dL 08/06/2024 12:26 PM [facility] GFR, Estimated 57(L) >60 mL/min/1.7 3m2 08/06/2024 12:26 PM [facility] Blood Venipuncture / Unknown 08/06/2024 10:23 AM SUPERVISOR TYPE BAR AND SEGMENT 08/06/2024 10:23 AM [facility] - 08/06/2024 12:26 PM SUPERVISOR TYPE BAR AND SEGMENT The National Kidney Disease Education Program suggests measuring Cystatin C in patients with eGFRcrea of 45 to 59 ml/min/1.73^2 who do not have other markers of kidney damage (i.e. elevated urine Albumin/Creatinine Ratio or a prior Cystatin C confirming the presence of chronic kidney disease). us Idris Brink Desilet DO LAB_1 Final Result [facility] [address] [place] [address], [facility] * (ABNORMAL) Complete Blood Count-W/Diff (08/06/2024 10:23 AM [facility]) WBC 10.6(H) 3.5 - 10.5 x10(9)/L 08/06/2024 10:30 AM [facility] RBC 3.50(L) 4.32 - 5.72 x10(12)/L 08/06/2024 10:30 AM [facility] Hemoglobin 10.4(L) 13.5 - 17.5 g/dL 08/06/2024 10:30 AM [facility] HCT 33.0(L) 38.8 - 50.0 % 08/06/2024 10:30 AM [facility] MCV 94.3 80.0 - 100.0 fL 08/06/2024 10:30 AM [facility] MCH 29.7 27.6 - 33.3 pg 08/06/2024 10:30 AM [facility] MCHC 31.5 31.5 - 35.2 g/dL 08/06/2024 10:30 AM [facility] RDW 15.9(H) 11.9 - 15.5 % 08/06/2024 10:30 AM [facility] Platelets 354 150 - 450 x10(9)/L 08/06/2024 10:30 AM [facility] Automated NRBC 0 <=0 /100 WBC 08/06/2024 10:30 AM [facility] Neutrophil Absolute 8.3(H) 1.7 - 7.0 10(9)/L 08/06/2024 10:30 AM [facility] Lymphocyte Absolute 1.0 1.0 - 4.8 10(9)/L 08/06/2024 10:30 AM [facility] Monocyte Absolute 0.8 0.2 - 0.9 10(9)/L 08/06/2024 10:30 AM [facility] Eosinophil Absolute 0.4 0.0 - 0.5 10(9)/L 08/06/2024 10:30 AM [facility] Basophil Absolute 0.1 0.0 - 0.3 10(9)/L 08/06/2024 10:30 AM [facility] Immature Granulocyte % 0.5 0.0 - 0.5 % 08/06/2024 10:30 AM [facility] Blood Venipuncture / Unknown 08/06/2024 10:23 AM SUPERVISOR TYPE BAR AND SEGMENT 08/06/2024 10:23 AM SUPERVISOR TYPE BAR AND SEGMENT us Luke W Desilet DO LAB_1 Final Result Performing Organization Address [facility] Phone Number [facility] [address] [place] [phone] * ALT (SGPT) (08/06/2024 10:23 AM SUPERVISOR TYPE BAR AND SEGMENT) ALT (SGPT) 15 0 - 55 U/L 08/06/2024 12:26 PM [facility] Blood Venipuncture / Unknown 08/06/2024 10:23 AM SUPERVISOR TYPE BAR AND SEGMENT 08/06/2024 10:23 AM SUPERVISOR TYPE BAR AND SEGMENT us Luke W Desilet DO LAB_1 Final Result Performing Organization Address [facility] de Phone Number [facility] [address] [place] [phone] * (ABNORMAL) Albumin (08/06/2024 10:23 AM SUPERVISOR TYPE BAR AND SEGMENT) Albumin 3.3(L) 3.5 - 5.0 g/dL 08/06/2024 12:26 PM [facility] Blood Venipuncture / Unknown 08/06/2024 10:23 AM SUPERVISOR TYPE BAR AND SEGMENT 08/06/2024 10:23 AM SUPERVISOR TYPE BAR AND SEGMENT us Luke W Desilet DO LAB_1 Final Result Performing Organization Address [facility] Co de Phone Number [facility] [address] [place] [address], [facility] from Last 3 Months Insurance MEDICA [employer] MEDICARE MANAGED CARE [employer] Care Teams Mobile Nurse Relationship Specialty Start Date End Date Needs Pcp, [place] [address] PCP - General 04/10/23
[2024-10-12 14:11] LABS: Slide Review Reflex No
[2024-10-12 14:14] LABS: RBC Urine 0-2 (0-2)
[2024-10-12 14:15] LABS: Bacteria Urine Moderate; Squamous Epithelial Cell Urine Moderate (None-Few)
[2024-10-12 14:25] LABS: Albumin* 4.5 g/dL (3.3-5.0); Chloride* 101 mmol/L (96-114); Potassium* 5.1 mmol/L (3.6-5.1); Sodium* 138 mmol/L (135-149)
[2024-10-12 14:28] LABS: Alanine Aminotransferase* 29 U/L (4-50); Aspartate Amino Transferase* 31 U/L (12-35); Blood Urea Nitrogen* 35 mg/dL (7-30); Creatinine* 1.4 mg/dL (0.5-1.5); Est. Creatinine Clearance* 39.35; Estimated Glomerular Filt Rate 51 ml/min
[2024-10-12 14:29] LABS: Anion Gap 12 mEq/L (7-15); Calcium* 9.9 mg/dL (8.4-10.6); Carbon Dioxide* 25 mmol/L (20-32); Glucose* 68 mg/dL (60-115); Total Protein* 7.8 g/dL (6.0-8.3)
[2024-10-12 14:31] LABS: C Reactive Protein* 1.9 mg/dL (0.5-1.0)
[2024-10-12 14:43] LABS: Troponin I* < 0.01 ng/mL (0.01-0.04)
[2024-10-12 14:45] LABS: PCR FLU A Negative PCR FLU A (Negative); PCR FLU B Negative PCR FLU B (Negative); PCR RSV Negative PCR RSV (Negative); SARS PCR* Negative SARS-CoV-2 (Negative)
[2024-10-12 14:48] LABS: Alkaline Phosphatase* 66 U/L (40-150); Bilirubin Total* 0.4 mg/dL (0.1-1.5)
[2024-10-12 15:25] VITALS: BP 142/74; PULSE 67; RESP 18; O2SAT 96
[2024-10-12 15:28] LABS: Glucose, Point-of-Care* 76 mg/dl (60-115)
== END 2024-10-12 15:49 | disposition home or self-care (01) ==
PROVIDERS: Emergency Provider Family Medicine; PCP Family Medicine
DX: E11.649 Type 2 diabetes mellitus with hypoglycemia without coma (principal)
CPT/HCPCS: 36415; 80053; 81001; 82947; 82962; 83605; 84484; 85025; 86140; 87086; 87631; 93005; 99284

== ENCOUNTER 2025-05-13 08:59 | Outpatient (CLI) | payer MEDICARE, OTHER, SELFPAY | END 2025-05-13 09:00 | disposition home or self-care (01) | PROVIDERS: PCP Family Medicine; Visit Provider Family Medicine | DX: E11.59 Type 2 diabetes mellitus with other circulatory complications (principal); E78.2 Mixed hyperlipidemia; M10.9 Gout, unspecified; Z79.4 Long term (current) use of insulin | CPT/HCPCS: 80048; 80061; 84550; 84681 ==